=== PATIENT | male | born 1980 | race Two or more races ===

== ENCOUNTER 2016-09-15 06:57 | Day surgery (SDC) | payer MEDICARE, MEDICAID ==
[2016-09-14 12:03] LABS: Basophils # (auto) 0 uL; Basophils % (auto) 0.6 % (0.0-2.0); CONDITION Y; Eosinophils # (auto) 0.2 uL; Eosinophils % (auto) 2.9 % (0.0-7.0); Hematocrit 30.1 % (41.0-53.0); Hemoglobin 10.3 g/dL (13.5-17.5); Lymphocytes # (auto) 1.6 uL; Lymphocytes % (auto) 22.6 % (10.0-50.0); Mean Corpuscular Hemoglobin 32.7 pg (28.0-32.0); Mean Corpuscular Hgb Conc. 34.3 g/dL (32.0-36.0); Mean Corpuscular Volume 95.4 fL (80.0-100.0); Mean Platelet Volume 7.6 fL (7.4-10.4); Monocytes # (auto) 0.5 uL; Monocytes % (auto) 6.8 % (0.0-12.0); Neutrophils # (auto) 4.8 uL; Neutrophils % (auto) 67.1 % (37.0-80.0); Platelet Count (auto) 332 10^3/uL (140-450); White Blood Cell 7.1 10^3/uL (4.4-10.8)
[2016-09-14 12:18] LABS: INR 1.01 (0.9-1.15)
[2016-09-14 12:27] LABS: BUN/Creatinine Ratio 6.7; Calcium 7.4 mg/dL (8.5-10.1)
[2016-09-14 12:31] LABS: Potassium 5.6 mmol/L (3.5-5.1)
[~2016-09-15] VITALS: Ht 180.3 cm; Wt 95.7 kg
[~2016-09-15 06:57] MED LIST: ASPI-231 PO; CHOL400C7 PO; HYDROCODON-ACETAMINOPHN PO; INSUINJ37 SC; INSUINJ9 SC; LABE200T18 PO; LISIPOW PO; ONDA4TAB8 PO; SIMV-8 PO; SODB650T PO
[2016-09-15] MEDS ORDERED: IODIXANOL 320MG/ML 100ML BTL IV ONE (07:20)
[2016-09-15] MEDS ORDERED: LIDOCAINE 2%HCL (LOCAL ANESTH.) INJ 20ML MDV ONE (07:21)
[2016-09-15] MEDS ORDERED: MIDAZOLAM HCL 1MG/1ML-2 ML VIAL ONE (08:25)
[2016-09-15] MEDS ORDERED: SODIUM CHL 0.9% 0 ML ONE (08:26)
[2016-09-15] MEDS ORDERED: fentaNYL CITRATE 100 MCG/2 ML VL ONE (08:26)
[2016-09-15] MEDS ORDERED: VERAPAMIL 2.5MG/ML INJ 2ML VIAL IV ONE (08:26)
[2016-09-15] MEDS ORDERED: ANGIOMAX 250 MG VIAL IV ONE (08:26)
== END 2016-09-15 13:30 | disposition home or self-care (01) ==
LOC: CATH 06:57
PROVIDERS: ATTEND Internal Medicine
DX: I25.10 Atherosclerotic heart disease of native coronary artery without angina pectoris (principal); I20.0 Unstable angina; I50.9 Heart failure, unspecified; J40 Bronchitis, not specified as acute or chronic; F41.9 Anxiety disorder, unspecified; F32.9 Major depressive disorder, single episode, unspecified; B19.10 Unspecified viral hepatitis B without hepatic coma
CPT/HCPCS: 36415; 71010; 80048; 85025; 85610; 93005; 93458; J2250; Q9967

== ENCOUNTER 2016-09-21 14:01 | Inpatient (IN) | payer MEDICARE, MEDICAID ==
[~2016-09-21] VITALS: Ht 180.3 cm; Wt 102.8 kg
[2016-09-21 14:46] LABS: Basophils # (auto) 0 uL; Basophils % (auto) 0.6 % (0.0-2.0); CONDITION Y; Eosinophils # (auto) 0.2 uL; Hematocrit 35.3 % (41.0-53.0); Hemoglobin 12.7 g/dL (13.5-17.5); Lymphocytes # (auto) 1.8 uL; Lymphocytes % (auto) 30.3 % (10.0-50.0); Mean Corpuscular Hemoglobin 34.3 pg (28.0-32.0); Mean Corpuscular Hgb Conc. 35.8 g/dL (32.0-36.0); Mean Corpuscular Volume 95.7 fL (80.0-100.0); Mean Platelet Volume 7.4 fL (7.4-10.4); Monocytes # (auto) 0.6 uL; Monocytes % (auto) 9.3 % (0.0-12.0); Neutrophils # (auto) 3.4 uL; Neutrophils % (auto) 56.8 % (37.0-80.0); Platelet Count (auto) 379 10^3/uL (140-450); Red Cell Distribution Width 15.7 % (11.6-16.0); White Blood Cell 5.9 10^3/uL (4.4-10.8)
[2016-09-21 15:08] LABS: Albumin 3.3 g/dL (3.4-5.0); Calcium 8.5 mg/dL (8.5-10.1)
[2016-09-21 15:11] LABS: BUN/Creatinine Ratio 3.3
[2016-09-21 15:14] LABS: Bilirubin, Total 0.6 mg/dL (0.2-1.0); Total Protein 8.4 g/dL (6.4-8.2)
[2016-09-21 15:33] LABS: Magnesium 2.4 mg/dL (1.6-2.6); Potassium 3.9 mmol/L (3.5-5.1)
[2016-09-21] MEDS ORDERED: NITROGLYCERIN 0.4 MG SL TAB SL PRN (16:00)
[2016-09-21] MEDS ORDERED: MORPHINE SULF INJ 2 MG/ML SYRINGE 1ML IV PRN (16:00)
[2016-09-21] MEDS ORDERED: ONDANSETRON HCL 4 MG/2 ML VIAL IV PRN (16:00)
[2016-09-21] MEDS ORDERED: DEXTROSE (50%) 50ML SYRG IV PRN (16:00)
[2016-09-21] MEDS: ACCU-CHEK COMFORT CURVE STRIP VI SCH ×2 (16:19→21:57)
[2016-09-21] MEDS: HYDROcodone-ACET 5/325MG TAB PO PRN ×2 (16:19→22:15)
[2016-09-21] MEDS: InsuLIN REG 1unit/0.01ml Soln (100units/ml) SC SCH ×2 (16:24→21:58)
[2016-09-21] MEDS ORDERED: METOPROLOL SUCCINATE XL 50 MG TAB PO ONE (16:45)
[2016-09-21] MEDS: traZODone HCL 50 MG TAB PO SCH ×2 (18:11→23:29)
[2016-09-21] MEDS ORDERED: PANTOPRAZOLE 40 MG TAB PO ONE (18:15)
[2016-09-21] MEDS ORDERED: NIFEdipine ER 30 MG TAB PO ONE (18:15)
[2016-09-21 20:00] VITALS: BP 156/97
[2016-09-21] MEDS: GABAPENTIN 300 MG CAP PO SCH (21:49)
[2016-09-21] MEDS: ATORVASTATIN 20 MG TAB PO SCH (21:50)
[2016-09-21] MEDS: B-COMPLEX W/ C & FOLIC ACID(NEPHROVITE TAB) PO SCH (21:50)
[2016-09-21] MEDS: INSULIN DETEMIR(LEVEMIR) 1unit/0.01ml Soln (100units/ml) SC SCH (21:59)
[2016-09-21] MEDS ORDERED: GABAPENTIN 100 MG CAP PO SCH (22:00)
[2016-09-21] MEDS ORDERED: HYDROcodone-ACET 10/325MG TAB PO PRN (22:30)
[2016-09-21] MEDS ORDERED: HYDROcodone-ACET 5/325MG TAB PO ONE (23:15)
[2016-09-21] MEDS: LABETALOL HCL 5 MG/ML ML 20ML VIAL IV PRN (23:30)
[2016-09-22 06:00] VITALS: BP 167/97
[2016-09-22] MEDS: ACCU-CHEK COMFORT CURVE STRIP VI SCH ×4 (06:55→22:06)
[2016-09-22] MEDS: InsuLIN REG 1unit/0.01ml Soln (100units/ml) SC SCH ×4 (06:56→22:07)
[2016-09-22] MEDS: LABETALOL HCL 5 MG/ML ML 20ML VIAL IV PRN (06:59)
[2016-09-22 07:04] LABS: Basophils # (auto) 0 uL; Basophils % (auto) 0.8 % (0.0-2.0); CONDITION Y; Eosinophils # (auto) 0.3 uL; Hematocrit 32.1 % (41.0-53.0); Hemoglobin 10.9 g/dL (13.5-17.5); Lymphocytes % (auto) 35.5 % (10.0-50.0); Mean Corpuscular Hemoglobin 32.5 pg (28.0-32.0); Mean Corpuscular Volume 95.4 fL (80.0-100.0); Mean Platelet Volume 7.5 fL (7.4-10.4); Monocytes # (auto) 0.6 uL; Monocytes % (auto) 10.6 % (0.0-12.0); Neutrophils # (auto) 2.7 uL; Neutrophils % (auto) 48.1 % (37.0-80.0); Platelet Count (auto) 315 10^3/uL (140-450); Red Cell Distribution Width 16.3 % (11.6-16.0); White Blood Cell 5.7 10^3/uL (4.4-10.8)
[2016-09-22 07:48] LABS: BUN/Creatinine Ratio 4.2; Potassium 3.9 mmol/L (3.5-5.1)
[2016-09-22 08:30] VITALS: BP 162/97
[2016-09-22] MEDS: PANTOPRAZOLE 40 MG TAB PO SCH (10:08)
[2016-09-22] MEDS: B-COMPLEX W/ C & FOLIC ACID(NEPHROVITE TAB) PO SCH ×2 (10:08→22:08)
[2016-09-22] MEDS: GABAPENTIN 300 MG CAP PO SCH ×2 (10:08→22:06)
[2016-09-22] MEDS: NIFEdipine ER 30 MG TAB PO SCH (10:09)
[2016-09-22] MEDS: METOPROLOL SUCCINATE XL 50 MG TAB PO SCH (10:09)
[2016-09-22] MEDS: INSULIN DETEMIR(LEVEMIR) 1unit/0.01ml Soln (100units/ml) SC SCH ×2 (10:24→22:46)
[2016-09-22 12:30] VITALS: BP 169/94
[2016-09-22] MEDS ORDERED: CLINDAMYCIN 600 MG/4 ML VL IM SCH (14:00)
[2016-09-22] MEDS ORDERED: CLINDAMYCIN 600 MG/4 ML VL IV SCH (15:01)
[2016-09-22] MEDS: CLINDAMYCIN IV SCH ×2 (15:06→22:06)
[2016-09-22] MEDS: [UNRECOGNIZED DRUG - OTHER] IV SCH ×2 (15:06→22:06)
[2016-09-22] MEDS ORDERED: LORazepam 2MG/ML-1ML VIAL IV ONE (15:30)
[2016-09-22] MEDS: HYDROcodone-ACET 10/325MG TAB PO PRN (15:49)
[2016-09-22] MEDS ORDERED: SODIUM CHL 0.9% 1000 ML BAG XX ONE (16:30)
[2016-09-22 17:00] VITALS: BP 128/78
[2016-09-22 20:00] VITALS: BP 157/84
[2016-09-22] MEDS: MORPHINE SULF INJ 2 MG/ML SYRINGE 1ML IV PRN (20:29)
[2016-09-22 22:00] VITALS: BP 157/84
[2016-09-22] MEDS: traZODone HCL 50 MG TAB PO SCH (22:06)
[2016-09-22] MEDS: ATORVASTATIN 20 MG TAB PO SCH (22:06)
[2016-09-23] MEDS: LABETALOL HCL 5 MG/ML ML 20ML VIAL IV PRN ×2 (00:27→05:46)
[2016-09-23] MEDS: MORPHINE SULF INJ 2 MG/ML SYRINGE 1ML IV PRN ×5 (00:51→20:22)
[2016-09-23] MEDS: [UNRECOGNIZED DRUG - OTHER] IV SCH ×3 (05:45→21:52)
[2016-09-23] MEDS: CLINDAMYCIN IV SCH ×3 (05:45→21:52)
[2016-09-23 06:00] VITALS: BP 161/90
[2016-09-23 06:54] LABS: Basophils # (auto) 0 uL; Basophils % (auto) 0.6 % (0.0-2.0); CONDITION Y; Eosinophils # (auto) 0.4 uL; Eosinophils % (auto) 5.2 % (0.0-7.0); Hematocrit 32.1 % (41.0-53.0); Hemoglobin 11.1 g/dL (13.5-17.5); Lymphocytes # (auto) 2.1 uL; Lymphocytes % (auto) 30.1 % (10.0-50.0); Mean Corpuscular Hgb Conc. 34.4 g/dL (32.0-36.0); Mean Corpuscular Volume 95.8 fL (80.0-100.0); Mean Platelet Volume 7.8 fL (7.4-10.4); Monocytes # (auto) 0.6 uL; Monocytes % (auto) 8.4 % (0.0-12.0); Neutrophils # (auto) 3.9 uL; Neutrophils % (auto) 55.7 % (37.0-80.0); Platelet Count (auto) 317 10^3/uL (140-450); Red Cell Distribution Width 15.9 % (11.6-16.0); White Blood Cell 6.9 10^3/uL (4.4-10.8)
[2016-09-23] MEDS: ACCU-CHEK COMFORT CURVE STRIP VI SCH ×3 (07:00→21:53)
[2016-09-23] MEDS: InsuLIN REG 1unit/0.01ml Soln (100units/ml) SC SCH ×2 (07:40→17:37)
[2016-09-23 08:02] LABS: Potassium 4.8 mmol/L (3.5-5.1)
[2016-09-23 08:03] LABS: BUN/Creatinine Ratio 4.9; Calcium 7.6 mg/dL (8.5-10.1)
[2016-09-23 09:51] VITALS: BP 133/80
[2016-09-23] MEDS: NIFEdipine ER 30 MG TAB PO SCH (10:00)
[2016-09-23] MEDS: METOPROLOL SUCCINATE XL 50 MG TAB PO SCH (10:00)
[2016-09-23] MEDS: HYDROcodone-ACET 10/325MG TAB PO PRN ×3 (10:04→18:09)
[2016-09-23] MEDS: INSULIN DETEMIR(LEVEMIR) 1unit/0.01ml Soln (100units/ml) SC SCH (10:07)
[2016-09-23] MEDS ORDERED: DEXTROSE (50%) 50ML SYRG IV PRN (12:30)
[2016-09-23 12:36] VITALS: BP 98/62
[2016-09-23] MEDS: B-COMPLEX W/ C & FOLIC ACID(NEPHROVITE TAB) PO SCH ×2 (17:02→21:53)
[2016-09-23] MEDS: GABAPENTIN 300 MG CAP PO SCH ×2 (17:02→21:53)
[2016-09-23] MEDS: PANTOPRAZOLE 40 MG TAB PO SCH (17:02)
[2016-09-23 17:10] VITALS: BP 119/61
[2016-09-23 20:00] VITALS: BP 147/80
[2016-09-23] MEDS: ATORVASTATIN 20 MG TAB PO SCH (21:52)
[2016-09-23] MEDS: traZODone HCL 50 MG TAB PO SCH (21:52)
[2016-09-23 22:00] VITALS: BP 147/80
[2016-09-23] MEDS ORDERED: INSULIN DETEMIR(LEVEMIR) 1unit/0.01ml Soln (100units/ml) SC SCH (22:00)
[2016-09-23] MEDS ORDERED: InsuLIN REG 1unit/0.01ml Soln (100units/ml) SC SCH (22:00)
[2016-09-24] MEDS: MORPHINE SULF INJ 2 MG/ML SYRINGE 1ML IV PRN ×4 (00:45→15:10)
[2016-09-24] MEDS: InsuLIN REG 1unit/0.01ml Soln (100units/ml) SC SCH ×2 (05:41→11:15)
[2016-09-24] MEDS: ACCU-CHEK COMFORT CURVE STRIP VI SCH ×2 (05:41→11:14)
[2016-09-24] MEDS: [UNRECOGNIZED DRUG - OTHER] IV SCH ×2 (05:41→14:00)
[2016-09-24] MEDS: CLINDAMYCIN IV SCH ×2 (05:41→14:00)
[2016-09-24 06:00] VITALS: BP 135/80
[2016-09-24 08:49] VITALS: BP 135/92
[2016-09-24] MEDS ORDERED: DOCUSATE SOD 100 MG CAP PO ONE (09:15)
[2016-09-24] MEDS: PANTOPRAZOLE 40 MG TAB PO SCH (09:15)
[2016-09-24] MEDS: GABAPENTIN 300 MG CAP PO SCH (09:16)
[2016-09-24] MEDS: NIFEdipine ER 30 MG TAB PO SCH (09:16)
[2016-09-24] MEDS: METOPROLOL SUCCINATE XL 50 MG TAB PO SCH (09:16)
[2016-09-24] MEDS: B-COMPLEX W/ C & FOLIC ACID(NEPHROVITE TAB) PO SCH (09:17)
[2016-09-24 13:00] VITALS: BP 155/88
[2016-09-24 13:43] VITALS: BP 135/92
[2016-09-24] MEDS ORDERED: DOCUSATE SOD 100 MG CAP PO SCH (22:00)
== END 2016-09-24 15:45 | disposition home health service (06) | DRG 291 ==
LOC: EDBD 14:01 → ER 14:02 → TELE 14:03 → EDUNIT# 14:03 → TELE-E-ADS 17:20 → TELE-EAST 19:02
PROVIDERS: ADMIT Internal Medicine; ATTEND Internal Medicine Pulmonary Disease
PROC: 5A1D00Z (ICD-10-PCS; principal; 2016-09-23)
DX: I13.2 Hypertensive heart and chronic kidney disease with heart failure and with stage 5 chronic kidney disease, or end stage renal disease (principal); N18.6 End stage renal disease; N17.9 Acute kidney failure, unspecified; E44.0 Moderate protein-calorie malnutrition; I50.30 Unspecified diastolic (congestive) heart failure; E87.1 Hypo-osmolality and hyponatremia; M86.8X7 Other osteomyelitis, ankle and foot; I50.32 Chronic diastolic (congestive) heart failure; M48.54XA Collapsed vertebra, not elsewhere classified, thoracic region, initial encounter for fracture; E10.621 Type 1 diabetes mellitus with foot ulcer; L97.529 Non-pressure chronic ulcer of other part of left foot with unspecified severity; E10.21 Type 1 diabetes mellitus with diabetic nephropathy; E10.22 Type 1 diabetes mellitus with diabetic chronic kidney disease; E10.51 Type 1 diabetes mellitus with diabetic peripheral angiopathy without gangrene; E11.69 Type 2 diabetes mellitus with other specified complication; D63.8 Anemia in other chronic diseases classified elsewhere; E87.5 Hyperkalemia; I25.9 Chronic ischemic heart disease, unspecified; Z79.4 Long term (current) use of insulin; Z99.2 Dependence on renal dialysis; Z79.899 Other long term (current) drug therapy; Z80.1 Family history of malignant neoplasm of trachea, bronchus and lung; Z82.49 Family history of ischemic heart disease and other diseases of the circulatory system; Z83.3 Family history of diabetes mellitus; Z68.31 Body mass index [BMI] 31.0-31.9, adult; Z81.8 Family history of other mental and behavioral disorders; Z83.49 Family history of other endocrine, nutritional and metabolic diseases
CPT/HCPCS: 36415; 71010; 71020; 73630; 73718; 80048; 80053; 82962; 83036; 83735; 84484; 85025; 85379; 87077; 87186; 87205; 90935; 94761; 96374; J1815; J2405; J3490

== ENCOUNTER 2016-11-04 09:02 | Day surgery (SDC) | payer MEDICARE, MEDICAID ==
[2016-11-03 17:01] LABS: Urine Bilirubin Negative (Negative); Urine Blood TRACE /uL (Negative); Urine Color Yellow (Yellow); Urine Glucose 4+ mg/dL (Normal); Urine Ketone Negative (Negative); Urine Nitrite Negative (Negative); Urine RBC 2 /hpf (0 - 3); Urine Squamous Epithelial Cell FEW /hpf (<5); Urine Urobilinogen Normal (Negative); Urine pH 8.5 (5.0-8.0)
[2016-11-03 17:05] LABS: INR 0.99 (0.9-1.15); Prothrombin Time 10.8 sec (9.37-12.3)
[2016-11-03 17:08] LABS: Basophils # (auto) 0 uL; Basophils % (auto) 0.6 % (0.0-2.0); CONDITION Y; Eosinophils # (auto) 0.1 uL; Eosinophils % (auto) 1.1 % (0.0-7.0); Hemoglobin 9.4 g/dL (13.5-17.5); Lymphocytes # (auto) 1.1 uL; Lymphocytes % (auto) 18.6 % (10.0-50.0); Mean Corpuscular Hemoglobin 32.4 pg (28.0-32.0); Mean Corpuscular Hgb Conc. 33.7 g/dL (32.0-36.0); Mean Corpuscular Volume 96.1 fL (80.0-100.0); Mean Platelet Volume 8.3 fL (7.4-10.4); Monocytes # (auto) 0.5 uL; Monocytes % (auto) 8.9 % (0.0-12.0); Neutrophils % (auto) 70.8 % (37.0-80.0); Platelet Count (auto) 254 10^3/uL (140-450); Red Cell Distribution Width 14.5 % (11.6-16.0); White Blood Cell 5.7 10^3/uL (4.4-10.8)
[2016-11-03 17:21] LABS: Albumin 3.1 g/dL (3.4-5.0); BUN/Creatinine Ratio 5.1; Bilirubin, Total 0.5 mg/dL (0.2-1.0); Calcium 7.8 mg/dL (8.5-10.1); Potassium 5.1 mmol/L (3.5-5.1); Total Protein 7.4 g/dL (6.4-8.2)
[~2016-11-04] VITALS: Ht 180.3 cm; Wt 86.2 kg
[~2016-11-04 09:02] MED LIST changes: +AMLO5TAB2 PO; +B-COTAB10 OR; +GABA-497 PO; -HYDROCODON-ACETAMINOPHN PO; -LABE200T18 PO; -LISIPOW PO; +METO25TA5 PO; +SEVE800T8 PO
[2016-11-04] MEDS ORDERED: ceFAZolin 1GM/50ML D5W 50 ML IV ONE (10:25)
[2016-11-04] MEDS ORDERED: NEOMYCIN-BACITRACIN-POLYM 15GM TOP OINT TOP ONE (12:42)
[2016-11-04] MEDS ORDERED: BUPIVACAINE 0.75% INJ 10ML MPV SDV IJ ONE (12:42)
[2016-11-04] MEDS ORDERED: methylPREDNISolone ACETATE 80 MG/ML VL ONE (12:42)
[2016-11-04] MEDS ORDERED: PROPOFOL 10 MG/ML 20 ML IV ONE (13:21)
[2016-11-04] MEDS ORDERED: MIDAZOLAM HCL 1MG/1ML-2 ML VIAL ONE (13:23)
[2016-11-04] MEDS ORDERED: fentaNYL CITRATE 100 MCG/2 ML VL ONE (13:23)
[2016-11-04] MEDS ORDERED: HYDROmorphone HCL 2 MG/ML VL IV PRN (13:45)
[2016-11-04] MEDS ORDERED: fentaNYL CITRATE 100 MCG/2 ML VL IV PRN (13:45)
[2016-11-04] MEDS ORDERED: ONDANSETRON HCL 4 MG/2 ML VIAL IV ONE (13:45)
[2016-11-04] MEDS ORDERED: ACCU-CHEK COMFORT CURVE STRIP VI ONE (13:45)
[2016-11-04] MEDS: LABETALOL HCL 5 MG/ML 4ML SYRINGE IV PRN ×2 (15:03→16:20)
[2016-11-04] MEDS: hydrALAZINE HCL 20 MG/ML VL IV PRN ×4 (15:42→16:12)
[2016-11-04] MEDS ORDERED: HYDROmorphone HCL 2 MG/ML VL ONE (16:17)
[2016-11-04 17:05] VITALS: BP 164/99
== END 2016-11-04 17:05 | disposition home or self-care (01) ==
LOC: SUR 09:02
PROVIDERS: ATTEND Podiatrist Foot & Ankle Surgery
DX: M89.8X7 Other specified disorders of bone, ankle and foot (principal); L97.529 Non-pressure chronic ulcer of other part of left foot with unspecified severity; I50.9 Heart failure, unspecified; J40 Bronchitis, not specified as acute or chronic; E11.9 Type 2 diabetes mellitus without complications; F41.9 Anxiety disorder, unspecified; F32.9 Major depressive disorder, single episode, unspecified
CPT/HCPCS: 27687; 28230; 36415; 80053; 81001; 82962; 85025; 85610; 85730; J0360; J0690; J1040; J1170; J2250; J2704; J3010; J3490

== ENCOUNTER 2017-05-08 18:06 | Inpatient (IN) | payer MEDICAID, MEDICARE ==
[~2017-05-08] VITALS: Ht 180.3 cm; Wt 97.0 kg
[~2017-05-08 18:06] MED LIST changes: -GABA-497 PO; +GABA300C10 PO; +ONDA-101 PO; -ONDA4TAB8 PO
[2017-05-08] MEDS ORDERED: cloNIDine HCL 0.1 MG TAB PO ONE (19:45)
[2017-05-08 19:53] LABS: Basophils # (auto) 0 uL; Basophils % (auto) 0.5 % (0.0-2.0); Eosinophils # (auto) 0.1 uL; Eosinophils % (auto) 2.2 % (0.0-7.0); Hematocrit 33.3 % (41.0-53.0); Lymphocytes # (auto) 0.7 uL; Lymphocytes % (auto) 10.4 % (10.0-50.0); Mean Corpuscular Hemoglobin 31.4 pg (28.0-32.0); Mean Corpuscular Hgb Conc. 33.1 g/dL (32.0-36.0); Mean Corpuscular Volume 94.7 fL (80.0-100.0); Monocytes # (auto) 0.8 uL; Monocytes % (auto) 12.9 % (0.0-12.0); Neutrophils # (auto) 4.6 uL; Platelet Count (auto) 214 10^3/uL (140-450); Red Blood Cells 3.51 10^6/uL (4.5-5.90); Red Cell Distribution Width 16.3 % (11.8-14.3); White Blood Cell 6.3 10^3/uL (4.4-10.8)
[2017-05-08 20:21] LABS: Albumin 3.2 g/dL (3.4-5.0); BUN/Creatinine Ratio 6.6; Bilirubin, Total 1.1 mg/dL (0.2-1.0); Calcium 6.9 mg/dL (8.5-10.1); Magnesium 2.9 mg/dL (1.6-2.6); Potassium 4.6 mmol/L (3.5-5.1); Total Protein 8.1 g/dL (6.4-8.2)
[2017-05-08] MEDS ORDERED: HYDROcodone-ACET 10/325MG TAB PO ONE (22:45)
[2017-05-08] MEDS ORDERED: SODIUM CHLORIDE 0.9% 1,000 ML IV ONE (23:45)
[2017-05-09 00:05] LABS: INR 1.06 (0.9-1.15); Partial Thromboplastin Time 32.5 sec (22.64-33.71); Prothrombin Time 11.6 sec (9.37-12.3)
[2017-05-09] MEDS ORDERED: LACTULOSE 20Gm/30ML SOLN PO ONE (06:15)
[2017-05-09] MEDS ORDERED: ONDANSETRON HCL 4 MG/2 ML VIAL IV PRN (06:15)
[2017-05-09] MEDS ORDERED: NITROGLYCERIN 0.4 MG SL TAB SL PRN (06:15)
[2017-05-09] MEDS ORDERED: IBUPROFEN 600 MG TAB PO PRN (06:15)
[2017-05-09] MEDS ORDERED: MORPHINE SULFATE 4 MG/ML SYR/VIAL IV PRN (06:15)
[2017-05-09] MEDS ORDERED: DEXTROSE (50%) 50ML SYRG IV PRN (06:15)
[2017-05-09] MEDS: ACCU-CHEK COMFORT CURVE STRIP VI SCH ×4 (06:33→22:00)
[2017-05-09] MEDS: InsuLIN REG 1unit/0.01ml Soln (100units/ml) SC SCH ×4 (06:34→22:00)
[2017-05-09 07:17] LABS: Basophils # (auto) 0 uL; Basophils % (auto) 0.4 % (0.0-2.0); Eosinophils # (auto) 0.1 uL; Eosinophils % (auto) 1.2 % (0.0-7.0); Hematocrit 37.2 % (41.0-53.0); Hemoglobin 12.2 g/dL (13.5-17.5); Lymphocytes # (auto) 0.7 uL; Lymphocytes % (auto) 10.2 % (10.0-50.0); Mean Corpuscular Hemoglobin 31.3 pg (28.0-32.0); Mean Corpuscular Hgb Conc. 32.8 g/dL (32.0-36.0); Mean Corpuscular Volume 95.4 fL (80.0-100.0); Monocytes # (auto) 0.7 uL; Monocytes % (auto) 9.5 % (0.0-12.0); Neutrophils # (auto) 5.4 uL; Neutrophils % (auto) 78.7 % (37.0-80.0); Nucleated Red Blood Cells % 0.1 %; Platelet Count (auto) 218 10^3/uL (140-450); Red Cell Distribution Width 16.6 % (11.8-14.3); White Blood Cell 6.9 10^3/uL (4.4-10.8)
[2017-05-09 07:35] VITALS: BP 191/108
[2017-05-09 07:35] LABS: Albumin 3.3 g/dL (3.4-5.0); BUN/Creatinine Ratio 6.9; Calcium 7.3 mg/dL (8.5-10.1); Potassium 5.2 mmol/L (3.5-5.1)
[2017-05-09 07:36] LABS: Bilirubin, Total 1.2 mg/dL (0.2-1.0); Total Protein 8.3 g/dL (6.4-8.2)
[2017-05-09] MEDS: hydrALAZINE HCL 25 MG TAB PO SCH ×2 (08:48→22:26)
[2017-05-09] MEDS: SEVELAMER 800 MG TAB PO SCH ×3 (08:52→17:38)
[2017-05-09] MEDS: ISOSORBIDE DINITRATE 10 MG TAB PO SCH ×2 (08:53→22:25)
[2017-05-09] MEDS: METOPROLOL TARTRATE 50 MG TAB PO SCH ×2 (08:53→22:27)
[2017-05-09 09:12] VITALS: BP 186/105
[2017-05-09] MEDS: amLODIPine BESYLATE 5 MG TAB PO SCH (09:59)
[2017-05-09] MEDS ORDERED: amLODIPine BESYLATE 5 MG TAB PO SCH (10:00)
[2017-05-09] MEDS ORDERED: PNEUMOCOCCAL VACC POLYS 25 MCG/0.5 ML VIAL IM ONE (10:00)
[2017-05-09] MEDS ORDERED: INFLUENZA QUAD 2017-2018 0.5 ML SYRG IM ONE (10:00)
[2017-05-09] MEDS: cloNIDine HCL 0.1 MG TAB PO PRN (10:25)
[2017-05-09 11:44] VITALS: BP 194/99
[2017-05-09 12:43] VITALS: BP 159/85
[2017-05-09] MEDS: GABAPENTIN 300 MG CAP PO SCH ×2 (13:41→22:26)
[2017-05-09 17:45] VITALS: BP 143/91
[2017-05-09 22:20] VITALS: BP 139/74
[2017-05-10] VITALS (8 sets, daily range): BP systolic 125–190; BP diastolic 68–103
[2017-05-10] MEDS: GABAPENTIN 300 MG CAP PO SCH ×3 (06:32→22:25)
[2017-05-10 06:44] LABS: Basophils # (auto) 0 uL; Basophils % (auto) 0.5 % (0.0-2.0); Eosinophils # (auto) 0.3 uL; Hematocrit 33.6 % (41.0-53.0); Hemoglobin 11.1 g/dL (13.5-17.5); Lymphocytes # (auto) 1.3 uL; Lymphocytes % (auto) 14.8 % (10.0-50.0); Mean Corpuscular Hemoglobin 31.3 pg (28.0-32.0); Mean Corpuscular Volume 94.8 fL (80.0-100.0); Monocytes # (auto) 0.8 uL; Monocytes % (auto) 9.7 % (0.0-12.0); Neutrophils # (auto) 6.2 uL; Nucleated Red Blood Cells % 0.1 %; Platelet Count (auto) 248 10^3/uL (140-450); Red Blood Cells 3.55 10^6/uL (4.5-5.90); Red Cell Distribution Width 16.6 % (11.8-14.3); White Blood Cell 8.7 10^3/uL (4.4-10.8)
[2017-05-10 06:57] LABS: BUN/Creatinine Ratio 6.9
[2017-05-10] MEDS: InsuLIN REG 1unit/0.01ml Soln (100units/ml) SC SCH ×4 (07:00→22:00)
[2017-05-10] MEDS: ACCU-CHEK COMFORT CURVE STRIP VI SCH ×4 (07:13→23:03)
[2017-05-10] MEDS: SEVELAMER 800 MG TAB PO SCH ×3 (08:13→17:19)
[2017-05-10] MEDS: ISOSORBIDE DINITRATE 10 MG TAB PO SCH ×2 (08:58→22:25)
[2017-05-10] MEDS: hydrALAZINE HCL 25 MG TAB PO SCH ×3 (08:58→22:26)
[2017-05-10] MEDS: METOPROLOL TARTRATE 50 MG TAB PO SCH ×2 (08:59→22:26)
[2017-05-10] MEDS: amLODIPine BESYLATE 5 MG TAB PO SCH (08:59)
[2017-05-10] MEDS ORDERED: SODIUM CHL 0.9% 1000 ML BAG XX ONE (09:15)
[2017-05-10] MEDS ORDERED: HYDROcodone-ACET 10/325MG TAB PO PRN (10:30)
[2017-05-10] MEDS: cloNIDine HCL 0.1 MG TAB PO PRN (13:15)
[2017-05-10] MEDS: NIFEdipine ER 30 MG TAB PO SCH (13:15)
[2017-05-10] MEDS ORDERED: AZITHROMYCIN 250 MG TAB PO ONE (15:00)
[2017-05-11 05:00] VITALS: BP 107/72
[2017-05-11] MEDS: GABAPENTIN 300 MG CAP PO SCH (06:21)
[2017-05-11] MEDS: hydrALAZINE HCL 25 MG TAB PO SCH (06:22)
[2017-05-11] MEDS: InsuLIN REG 1unit/0.01ml Soln (100units/ml) SC SCH ×2 (06:40→11:58)
[2017-05-11] MEDS: ACCU-CHEK COMFORT CURVE STRIP VI SCH ×2 (06:41→11:58)
[2017-05-11] MEDS: SEVELAMER 800 MG TAB PO SCH ×2 (08:49→11:58)
[2017-05-11] MEDS: NIFEdipine ER 30 MG TAB PO SCH (08:50)
[2017-05-11] MEDS: METOPROLOL TARTRATE 50 MG TAB PO SCH (08:50)
[2017-05-11] MEDS: ISOSORBIDE DINITRATE 10 MG TAB PO SCH (08:50)
[2017-05-11 09:00] VITALS: BP 127/79
[2017-05-11] MEDS ORDERED: AZITHROMYCIN 250 MG TAB PO SCH (10:00)
[2017-05-11 13:00] VITALS: BP 122/77
== END 2017-05-11 15:00 | disposition home or self-care (01) | DRG 441 ==
LOC: ER 18:06 → TELE 18:07 → TELE-EAST 05-09 07:24
PROVIDERS: ADMIT Nurse Practitioner Family; ATTEND Internal Medicine
PROC: 5A1D70Z Performance of Urinary Filtration, Intermittent, Less than 6 Hours Per Day (ICD-10-PCS; principal; 2017-05-10)
DX: K72.90 Hepatic failure, unspecified without coma (principal); N18.6 End stage renal disease; I13.2 Hypertensive heart and chronic kidney disease with heart failure and with stage 5 chronic kidney disease, or end stage renal disease; E11.22 Type 2 diabetes mellitus with diabetic chronic kidney disease; E87.1 Hypo-osmolality and hyponatremia; D64.9 Anemia, unspecified; E66.9 Obesity, unspecified; E78.5 Hyperlipidemia, unspecified; G89.29 Other chronic pain; E87.5 Hyperkalemia; I16.0 Hypertensive urgency; I25.10 Atherosclerotic heart disease of native coronary artery without angina pectoris; I50.9 Heart failure, unspecified; J20.9 Acute bronchitis, unspecified; R04.0 Epistaxis; Z79.4 Long term (current) use of insulin; Z79.82 Long term (current) use of aspirin; Z82.3 Family history of stroke; Z82.49 Family history of ischemic heart disease and other diseases of the circulatory system; Z83.3 Family history of diabetes mellitus; Z91.11 Patient's noncompliance with dietary regimen; Z91.15 Patient's noncompliance with renal dialysis; Z99.2 Dependence on renal dialysis; Z79.899 Other long term (current) drug therapy; Z23 Encounter for immunization
CPT/HCPCS: 36415; 70450; 71045; 73030; 74176; 80048; 80053; 82140; 82962; 83735; 83880; 84484; 85025; 85610; 85730; 90935; 93005; J1815

== ENCOUNTER 2017-10-04 05:57 | Inpatient (IN) | payer MEDICARE ==
[~2017-10-04] VITALS: Ht 182.9 cm; Wt 106.1 kg
[~2017-10-04 05:57] MED LIST changes: -AMLO5TAB2 PO; -CHOL400C7 PO
[2017-10-04 07:20] LABS: Basophils # (auto) 0.1 uL; Basophils % (auto) 0.8 % (0.0-2.0); Eosinophils # (auto) 0.3 uL; Eosinophils % (auto) 2.7 % (0.0-7.0); Hemoglobin 11.9 g/dL (13.5-17.5); Lymphocytes # (auto) 0.8 uL; Lymphocytes % (auto) 6.5 % (10.0-50.0); Mean Corpuscular Hemoglobin 31.5 pg (28.0-32.0); Mean Corpuscular Hgb Conc. 33.2 g/dL (32.0-36.0); Monocytes # (auto) 0.9 uL; Monocytes % (auto) 7.6 % (0.0-12.0); Neutrophils # (auto) 9.6 uL; Neutrophils % (auto) 82.4 % (37.0-80.0); Platelet Count (auto) 293 10^3/uL (140-450); Red Blood Cells 3.79 10^6/uL (4.5-5.90); Red Cell Distribution Width 16.3 % (11.8-14.3); White Blood Cell 11.7 10^3/uL (4.4-10.8)
[2017-10-04 08:00] LABS: Alanine Aminotransferase 24 U/L (16-61); Albumin 3.1 g/dL (3.4-5.0); Alkaline Phosphatase 132 U/L (45-117); Anion Gap 14 (5-15); Aspartate Aminotransferase 24 U/L (15-37); BUN/Creatinine Ratio 7.9; Bilirubin, Total 0.9 mg/dL (0.2-1.0); Calcium 7.4 mg/dL (8.5-10.1); Carbon Dioxide 25 mmol/L (21-32); Chloride 90 mmol/L (98-107); GFR African American 7 mL/min; GFR Non-African American 6 mL/min; Glucose 153 mg/dL (74-106); Magnesium 3.4 mg/dL (1.6-2.6); Sodium 129 mmol/L (136-145); Total Protein 8.8 g/dL (6.4-8.2)
[2017-10-04 08:06] LABS: Blood Urea Nitrogen 89 mg/dL (7-18); Potassium 6.3 mmol/L (3.5-5.1)
[2017-10-04] MEDS ORDERED: InsuLIN REG 1unit/0.01ml Soln (100units/ml) IV ONE (08:30)
[2017-10-04] MEDS ORDERED: SODIUM BICARBONATE 8.4% INJ 50ML SYRINGE IV ONE (08:30)
[2017-10-04] MEDS ORDERED: DEXTROSE (50%) 50ML SYRG IV ONE (08:30)
[2017-10-04] MEDS ORDERED: SODIUM POLYSTYRENE SULF 15GM/60ML SUSP PO ONE (08:30)
[2017-10-04] MEDS ORDERED: CALCIUM GLUC 4.65meq/50ml D5AE 50 ML IV ONE (08:30)
[2017-10-04] MEDS ORDERED: PIPERACILLIN-TAZOB 3.375GM 100 ML IV ONE (08:30)
[2017-10-04] MEDS ORDERED: HYDROcodone-ACET 10/325MG TAB PO PRN (09:30)
[2017-10-04] MEDS ORDERED: LACTULOSE 20Gm/30ML SOLN PO PRN (09:30)
[2017-10-04] MEDS ORDERED: VANCOMYCIN PER PHARMACY 0 MG IV SCH (09:30)
[2017-10-04] MEDS ORDERED: DEXTROSE (50%) 50ML SYRG IV PRN (09:30)
[2017-10-04] MEDS ORDERED: cefTRIAXone 1GM/10ml IVPUSH 10 ML IV ONE (09:30)
[2017-10-04] MEDS ORDERED: IBUPROFEN 600 MG TAB PO PRN (09:30)
[2017-10-04] MEDS ORDERED: ONDANSETRON HCL 4 MG/2 ML VIAL IV PRN (09:45)
[2017-10-04] MEDS ORDERED: ACETAMINOPHEN 325 MG TAB PO PRN (09:45)
[2017-10-04] MEDS ORDERED: TEMAZEPAM 15 MG CAP PO PRN (09:45)
[2017-10-04] MEDS ORDERED: FAMOTIDINE 20 MG TAB PO SCH (10:00)
[2017-10-04] MEDS ORDERED: PATIENTS OWN MEDICATION PO SCH (10:00)
[2017-10-04] MEDS: B-COMPLEX W/ C & FOLIC ACID(NEPHROVITE TAB) PO SCH (10:20)
[2017-10-04] MEDS: ASPirin-EC 81 mg tab PO SCH (10:20)
[2017-10-04] MEDS: hydrALAZINE HCL 25 MG TAB PO SCH ×2 (10:21→22:31)
[2017-10-04] MEDS: METOPROLOL TARTRATE 50 MG TAB PO SCH ×2 (10:21→22:32)
[2017-10-04] MEDS: PROMETHAZINE HCL 25 MG/ML 1ML IV PRN (10:21)
[2017-10-04] MEDS: FAMOTIDINE 20 MG TAB PO SCH (10:22)
[2017-10-04] MEDS: MORPHINE SULF INJ 2 MG/ML SYRINGE 1ML IV PRN (10:22)
[2017-10-04] MEDS: NIFEdipine ER 30 MG TAB PO SCH (10:23)
[2017-10-04] MEDS: MULTIPLE VITAMIN TAB PO SCH (10:23)
[2017-10-04] MEDS ORDERED: VANCOMYCIN 1GM/250ML 250 ML IV ONE (10:30)
[2017-10-04] MEDS: GABAPENTIN 300 MG CAP PO SCH (10:35)
[2017-10-04] MEDS: FUROSEMIDE 40 MG TAB PO SCH ×2 (10:36→17:50)
[2017-10-04 11:22] LABS: INR 0.96 (0.9-1.15); Prothrombin Time 10.3 sec (9.27-12.13)
[2017-10-04] MEDS: ACCU-CHEK COMFORT CURVE STRIP VI SCH ×3 (11:40→22:00)
[2017-10-04] MEDS: InsuLIN REG 1unit/0.01ml Soln (100units/ml) SC SCH ×3 (11:52→22:00)
[2017-10-04 13:02] LABS: Hepatitis A Ab IgM Negative; Hepatitis B Core IgM Negative; Hepatitis B Surface Antigen Negative (Negative); Hepatitis C Antibody Negative (Negative)
[2017-10-04] MEDS: SEVELAMER 800 MG TAB PO SCH ×2 (13:40→18:00)
[2017-10-04] MEDS ORDERED: GABAPENTIN 300 MG CAP PO SCH (14:00)
[2017-10-04] MEDS: SODIUM CHLOR 0.9% PF (SALINE LOCK) 10ML VIAL/SYR IV SCH ×2 (14:01→22:00)
[2017-10-04 22:00] VITALS: BP 153/80
[2017-10-04] MEDS ORDERED: INSULIN LANTUS (GLARGINE) 1 /0.01ml (100units/ml) SC SCH (22:00)
[2017-10-04] MEDS: CINACALCET HYDROCHLORIDE 30 MG TAB PO SCH (22:00)
[2017-10-04] MEDS: traZODone HCL 50 MG TAB PO SCH (22:32)
[2017-10-04] MEDS: ATORVASTATIN 20 MG TAB PO SCH (22:38)
[2017-10-05] MEDS: MORPHINE SULF INJ 2 MG/ML SYRINGE 1ML IV PRN ×8 (00:36→21:55)
[2017-10-05 05:15] VITALS: BP 126/69
[2017-10-05 05:42] LABS: Basophils # (auto) 0.2 uL; Basophils % (auto) 2.8 % (0.0-2.0); Eosinophils # (auto) 0.4 uL; Eosinophils % (auto) 5.2 % (0.0-7.0); Hematocrit 31.8 % (41.0-53.0); Hemoglobin 10.8 g/dL (13.5-17.5); Lymphocytes # (auto) 0.9 uL; Lymphocytes % (auto) 12.8 % (10.0-50.0); Mean Corpuscular Hemoglobin 32.4 pg (28.0-32.0); Mean Corpuscular Volume 95.3 fL (80.0-100.0); Monocytes # (auto) 0.7 uL; Monocytes % (auto) 10.1 % (0.0-12.0); Neutrophils # (auto) 4.8 uL; Neutrophils % (auto) 69.1 % (37.0-80.0); Nucleated Red Blood Cells % 0.1 %; Platelet Count (auto) 265 10^3/uL (140-450); Red Blood Cells 3.34 10^6/uL (4.5-5.90); Red Cell Distribution Width 16.4 % (11.8-14.3)
[2017-10-05] MEDS: InsuLIN REG 1unit/0.01ml Soln (100units/ml) SC SCH ×4 (05:48→22:02)
[2017-10-05] MEDS: SODIUM CHLOR 0.9% PF (SALINE LOCK) 10ML VIAL/SYR IV SCH ×3 (05:48→22:02)
[2017-10-05] MEDS: ACCU-CHEK COMFORT CURVE STRIP VI SCH ×4 (05:49→22:03)
[2017-10-05 06:05] LABS: Albumin 2.5 g/dL (3.4-5.0); BUN/Creatinine Ratio 7.6; Calcium 7.8 mg/dL (8.5-10.1); Potassium 5.1 mmol/L (3.5-5.1)
[2017-10-05 06:08] LABS: Bilirubin, Total 0.7 mg/dL (0.2-1.0); Total Protein 7.8 g/dL (6.4-8.2)
[2017-10-05] MEDS: FUROSEMIDE 40 MG TAB PO SCH ×2 (06:12→18:35)
[2017-10-05] MEDS ORDERED: INSULIN LANTUS (GLARGINE) 1 /0.01ml (100units/ml) SC SCH (07:00)
[2017-10-05 09:00] VITALS: BP 134/71
[2017-10-05] MEDS ORDERED: cefTRIAXone 1GM/10ml IVPUSH 10 ML IV SCH (09:00)
[2017-10-05] MEDS: B-COMPLEX W/ C & FOLIC ACID(NEPHROVITE TAB) PO SCH (10:35)
[2017-10-05] MEDS: MULTIPLE VITAMIN TAB PO SCH (10:36)
[2017-10-05] MEDS: SEVELAMER 800 MG TAB PO SCH ×3 (10:36→18:36)
[2017-10-05] MEDS: GABAPENTIN 300 MG CAP PO SCH (10:36)
[2017-10-05] MEDS: NIFEdipine ER 30 MG TAB PO SCH (10:38)
[2017-10-05] MEDS: hydrALAZINE HCL 25 MG TAB PO SCH ×2 (10:38→21:56)
[2017-10-05] MEDS: FAMOTIDINE 20 MG TAB PO SCH (10:39)
[2017-10-05] MEDS: ASPirin-EC 81 mg tab PO SCH (10:39)
[2017-10-05] MEDS: METOPROLOL TARTRATE 50 MG TAB PO SCH ×2 (10:39→21:57)
[2017-10-05 11:58] VITALS: BP 148/81
[2017-10-05 17:44] VITALS: BP 126/65
[2017-10-05] MEDS: ATORVASTATIN 20 MG TAB PO SCH (21:56)
[2017-10-05] MEDS: traZODone HCL 50 MG TAB PO SCH (21:57)
[2017-10-05 22:00] VITALS: BP 140/83
[2017-10-05] MEDS: CINACALCET HYDROCHLORIDE 30 MG TAB PO SCH (22:00)
[2017-10-05] MEDS: INSULIN LANTUS (GLARGINE) 1 /0.01ml (100units/ml) SC SCH (22:03)
[2017-10-05] MEDS: NITROGLYCERIN 0.4 MG SL TAB SL PRN ×3 (23:06→23:43)
[2017-10-06] MEDS: MORPHINE SULF INJ 2 MG/ML SYRINGE 1ML IV PRN ×6 (04:46→23:28)
[2017-10-06 05:13] VITALS: BP 129/76
[2017-10-06] MEDS: SODIUM CHLOR 0.9% PF (SALINE LOCK) 10ML VIAL/SYR IV SCH ×3 (05:59→22:06)
[2017-10-06] MEDS: FUROSEMIDE 40 MG TAB PO SCH ×2 (06:00→18:23)
[2017-10-06] MEDS: InsuLIN REG 1unit/0.01ml Soln (100units/ml) SC SCH ×4 (06:01→22:00)
[2017-10-06] MEDS: INSULIN LANTUS (GLARGINE) 1 /0.01ml (100units/ml) SC SCH ×2 (06:02→22:06)
[2017-10-06] MEDS: ACCU-CHEK COMFORT CURVE STRIP VI SCH ×4 (06:04→22:06)
[2017-10-06 08:53] VITALS: BP 145/68
[2017-10-06] MEDS: B-COMPLEX W/ C & FOLIC ACID(NEPHROVITE TAB) PO SCH (09:08)
[2017-10-06] MEDS: SEVELAMER 800 MG TAB PO SCH ×3 (09:08→18:23)
[2017-10-06] MEDS: ASPirin-EC 81 mg tab PO SCH (09:08)
[2017-10-06] MEDS: FAMOTIDINE 20 MG TAB PO SCH (09:08)
[2017-10-06] MEDS: MULTIPLE VITAMIN TAB PO SCH (09:08)
[2017-10-06] MEDS: GABAPENTIN 300 MG CAP PO SCH (09:08)
[2017-10-06] MEDS: METOPROLOL TARTRATE 50 MG TAB PO SCH ×2 (12:21→22:03)
[2017-10-06] MEDS: hydrALAZINE HCL 25 MG TAB PO SCH ×2 (12:21→22:02)
[2017-10-06] MEDS: NIFEdipine ER 30 MG TAB PO SCH (12:22)
[2017-10-06 12:40] VITALS: BP 149/84
[2017-10-06 17:16] VITALS: BP 150/95
[2017-10-06 22:00] VITALS: BP 148/85
[2017-10-06] MEDS: CINACALCET HYDROCHLORIDE 30 MG TAB PO SCH (22:00)
[2017-10-06] MEDS: ATORVASTATIN 20 MG TAB PO SCH (22:02)
[2017-10-06] MEDS: traZODone HCL 50 MG TAB PO SCH (22:03)
[2017-10-07] MEDS: MORPHINE SULF INJ 2 MG/ML SYRINGE 1ML IV PRN ×5 (03:41→20:39)
[2017-10-07 05:30] VITALS: BP 155/80
[2017-10-07] MEDS: SODIUM CHLOR 0.9% PF (SALINE LOCK) 10ML VIAL/SYR IV SCH ×3 (06:00→22:00)
[2017-10-07] MEDS: INSULIN LANTUS (GLARGINE) 1 /0.01ml (100units/ml) SC SCH ×2 (06:40→22:00)
[2017-10-07] MEDS: InsuLIN REG 1unit/0.01ml Soln (100units/ml) SC SCH ×4 (06:40→22:00)
[2017-10-07] MEDS: ACCU-CHEK COMFORT CURVE STRIP VI SCH ×4 (06:41→22:00)
[2017-10-07] MEDS: FUROSEMIDE 40 MG TAB PO SCH ×2 (06:42→17:44)
[2017-10-07 09:00] VITALS: BP 128/68
[2017-10-07] MEDS: GABAPENTIN 300 MG CAP PO SCH (09:09)
[2017-10-07] MEDS: SEVELAMER 800 MG TAB PO SCH ×3 (09:09→17:42)
[2017-10-07] MEDS: B-COMPLEX W/ C & FOLIC ACID(NEPHROVITE TAB) PO SCH (09:09)
[2017-10-07] MEDS: MULTIPLE VITAMIN TAB PO SCH (09:11)
[2017-10-07] MEDS: FAMOTIDINE 20 MG TAB PO SCH (09:12)
[2017-10-07] MEDS: NIFEdipine ER 30 MG TAB PO SCH (09:12)
[2017-10-07] MEDS: ASPirin-EC 81 mg tab PO SCH (09:12)
[2017-10-07] MEDS: hydrALAZINE HCL 25 MG TAB PO SCH ×2 (09:13→23:07)
[2017-10-07] MEDS: METOPROLOL TARTRATE 50 MG TAB PO SCH ×2 (09:13→23:08)
[2017-10-07 13:00] VITALS: BP 156/79
[2017-10-07 17:00] VITALS: BP 149/85
[2017-10-07 22:00] VITALS: BP 149/85
[2017-10-07] MEDS: CINACALCET HYDROCHLORIDE 30 MG TAB PO SCH (22:00)
[2017-10-07] MEDS: ATORVASTATIN 20 MG TAB PO SCH (23:06)
[2017-10-07] MEDS: traZODone HCL 50 MG TAB PO SCH (23:06)
[2017-10-08 05:00] VITALS: BP 129/73
[2017-10-08] MEDS: MORPHINE SULF INJ 2 MG/ML SYRINGE 1ML IV PRN ×4 (05:15→21:17)
[2017-10-08] MEDS: SODIUM CHLOR 0.9% PF (SALINE LOCK) 10ML VIAL/SYR IV SCH ×3 (06:19→22:00)
[2017-10-08] MEDS: InsuLIN REG 1unit/0.01ml Soln (100units/ml) SC SCH ×4 (06:20→22:00)
[2017-10-08] MEDS: FUROSEMIDE 40 MG TAB PO SCH ×2 (06:20→17:58)
[2017-10-08] MEDS: INSULIN LANTUS (GLARGINE) 1 /0.01ml (100units/ml) SC SCH ×2 (06:21→22:00)
[2017-10-08] MEDS: ACCU-CHEK COMFORT CURVE STRIP VI SCH ×4 (06:21→22:00)
[2017-10-08 08:00] VITALS: BP 131/87
[2017-10-08] MEDS: SEVELAMER 800 MG TAB PO SCH ×3 (08:21→17:58)
[2017-10-08 08:45] VITALS: BP 131/87
[2017-10-08] MEDS: FAMOTIDINE 20 MG TAB PO SCH (10:00)
[2017-10-08] MEDS: B-COMPLEX W/ C & FOLIC ACID(NEPHROVITE TAB) PO SCH (10:03)
[2017-10-08] MEDS: MULTIPLE VITAMIN TAB PO SCH (10:03)
[2017-10-08] MEDS: NIFEdipine ER 30 MG TAB PO SCH (10:04)
[2017-10-08] MEDS: ASPirin-EC 81 mg tab PO SCH (10:04)
[2017-10-08] MEDS: GABAPENTIN 300 MG CAP PO SCH (10:04)
[2017-10-08] MEDS: METOPROLOL TARTRATE 50 MG TAB PO SCH ×2 (10:05→22:57)
[2017-10-08] MEDS: hydrALAZINE HCL 25 MG TAB PO SCH ×2 (10:05→22:56)
[2017-10-08 13:00] VITALS: BP 149/79
[2017-10-08] MEDS: PROMETHAZINE HCL 25 MG/ML 1ML IV PRN (14:03)
[2017-10-08 17:00] VITALS: BP 145/64
[2017-10-08 22:00] VITALS: BP 122/73
[2017-10-08] MEDS: ATORVASTATIN 20 MG TAB PO SCH (22:00)
[2017-10-08] MEDS: CINACALCET HYDROCHLORIDE 30 MG TAB PO SCH (22:00)
[2017-10-08] MEDS: traZODone HCL 50 MG TAB PO SCH (22:56)
[2017-10-09] MEDS: MORPHINE SULF INJ 2 MG/ML SYRINGE 1ML IV PRN ×2 (02:57→09:00)
[2017-10-09 05:00] VITALS: BP 139/71
[2017-10-09] MEDS: FUROSEMIDE 40 MG TAB PO SCH (05:57)
[2017-10-09] MEDS: SODIUM CHLOR 0.9% PF (SALINE LOCK) 10ML VIAL/SYR IV SCH (05:58)
[2017-10-09] MEDS: INSULIN LANTUS (GLARGINE) 1 /0.01ml (100units/ml) SC SCH (05:59)
[2017-10-09] MEDS: ACCU-CHEK COMFORT CURVE STRIP VI SCH ×2 (05:59→11:30)
[2017-10-09] MEDS: InsuLIN REG 1unit/0.01ml Soln (100units/ml) SC SCH ×2 (05:59→11:30)
[2017-10-09] MEDS: SEVELAMER 800 MG TAB PO SCH ×2 (08:28→12:00)
[2017-10-09 08:30] VITALS: BP 148/89
[2017-10-09] MEDS: MULTIPLE VITAMIN TAB PO SCH (09:49)
[2017-10-09] MEDS: GABAPENTIN 300 MG CAP PO SCH (09:49)
[2017-10-09] MEDS: METOPROLOL TARTRATE 50 MG TAB PO SCH (09:49)
[2017-10-09] MEDS: hydrALAZINE HCL 25 MG TAB PO SCH (09:49)
[2017-10-09] MEDS: B-COMPLEX W/ C & FOLIC ACID(NEPHROVITE TAB) PO SCH (09:49)
[2017-10-09] MEDS: FAMOTIDINE 20 MG TAB PO SCH (09:50)
[2017-10-09] MEDS: NIFEdipine ER 30 MG TAB PO SCH (09:50)
[2017-10-09] MEDS: ASPirin-EC 81 mg tab PO SCH (09:50)
[2017-10-09 10:22] VITALS: BP 148/89
== END 2017-10-09 12:19 | disposition home health service (06) | DRG 871 ==
LOC: EDBD 05:57 → EDUNIT# 05:57 → EDBD 06:07 → ER 06:07 → TELE 06:08 → TELE-CENTR 18:26
PROVIDERS: ADMIT Internal Medicine; ATTEND Internal Medicine Pulmonary Disease
PROC: 5A1D70Z Performance of Urinary Filtration, Intermittent, Less than 6 Hours Per Day (ICD-10-PCS; principal; 2017-10-04)
PROC: 5A1D70Z Performance of Urinary Filtration, Intermittent, Less than 6 Hours Per Day (ICD-10-PCS; 2017-10-06)
PROC: 0W9G3ZZ Drainage of Peritoneal Cavity, Percutaneous Approach (ICD-10-PCS; 2017-10-06)
PROC: 5A1D70Z Performance of Urinary Filtration, Intermittent, Less than 6 Hours Per Day (ICD-10-PCS; 2017-10-08)
DX: A41.9 Sepsis, unspecified organism (principal); N18.6 End stage renal disease; E44.0 Moderate protein-calorie malnutrition; N17.9 Acute kidney failure, unspecified; E87.1 Hypo-osmolality and hyponatremia; R18.8 Other ascites; I13.2 Hypertensive heart and chronic kidney disease with heart failure and with stage 5 chronic kidney disease, or end stage renal disease; I50.32 Chronic diastolic (congestive) heart failure; J98.11 Atelectasis; E87.5 Hyperkalemia; E83.41 Hypermagnesemia; E83.51 Hypocalcemia; L97.509 Non-pressure chronic ulcer of other part of unspecified foot with unspecified severity; E10.21 Type 1 diabetes mellitus with diabetic nephropathy; D63.8 Anemia in other chronic diseases classified elsewhere; E10.22 Type 1 diabetes mellitus with diabetic chronic kidney disease; E10.621 Type 1 diabetes mellitus with foot ulcer; I25.10 Atherosclerotic heart disease of native coronary artery without angina pectoris; Z79.4 Long term (current) use of insulin; Z82.3 Family history of stroke; Z82.49 Family history of ischemic heart disease and other diseases of the circulatory system; Z68.31 Body mass index [BMI] 31.0-31.9, adult; Z83.3 Family history of diabetes mellitus; Z99.2 Dependence on renal dialysis; Z89.429 Acquired absence of other toe(s), unspecified side
CPT/HCPCS: 10022; 36415; 49083; 71045; 74176; 76705; 76942; 80053; 80074; 80202; 82140; 82962; 83036; 83605; 83735; 83880; 84443; 84484; 85025; 85610; 87040; 87081; 90935; 93005; 93306; 96374; 96375; 97116; 97163; 97530; J0610; J0696; J1815; J2405

== ENCOUNTER → 2018-03-23 | Day surgery (SDC) | payer MEDICARE ==
[2018-03-18 14:59] LABS: Basophils # (auto) 0.1 uL; Basophils % (auto) 1.3 % (0.0-2.0); Eosinophils # (auto) 0.2 uL; Eosinophils % (auto) 4.7 % (0.0-7.0); Hematocrit 38.8 % (41.0-53.0); Lymphocytes # (auto) 0.8 uL; Lymphocytes % (auto) 18.3 % (10.0-50.0); Mean Corpuscular Hemoglobin 33.5 pg (28.0-32.0); Mean Corpuscular Hgb Conc. 33.6 g/dL (32.0-36.0); Mean Corpuscular Volume 99.8 fL (80.0-100.0); Monocytes # (auto) 0.6 uL; Monocytes % (auto) 12.8 % (0.0-12.0); Neutrophils # (auto) 2.9 uL; Neutrophils % (auto) 62.9 % (37.0-80.0); Nucleated Red Blood Cells % 0.1 %; Platelet Count (auto) 340 10^3/uL (140-450); Red Blood Cells 3.89 10^6/uL (4.5-5.90); Red Cell Distribution Width 16.1 % (11.8-14.3); White Blood Cell 4.5 10^3/uL (4.4-10.8)
[2018-03-18 15:14] LABS: INR 0.98 (0.9-1.15); Partial Thromboplastin Time 26.7 sec (23.78-33.04); Prothrombin Time 10.5 sec (9.27-12.13)
[2018-03-18 15:18] LABS: Calcium 8.6 mg/dL (8.5-10.1); Potassium 3.8 mmol/L (3.5-5.1)
[2018-03-18 15:22] LABS: BUN/Creatinine Ratio 3.6; Bilirubin, Total 0.6 mg/dL (0.2-1.0); Total Protein 8.4 g/dL (6.4-8.2)
[~2018-03-23] VITALS: Ht 180.3 cm; Wt 95.3 kg
[~2018-03-23] MED LIST changes: +ACCU-CHEK COMFORT CURVE STRIP VI ONE; -ASPI-231 PO; +ASPI81TA27 PO; +BUPIVACAINE 0.75% INJ 10ML MPV SDV IJ ONE; +CINA30TA2 PO; +HYDR-531 PO; +HYDR50TA15 PO; +HYDROmorphone HCL 2 MG/ML VL IV PRN; +INSLANTI SC; -INSUINJ37 SC; +ISOS20TA56 PO; -METO25TA5 PO; +METO25TA62 PO; +METOCLOPRAMIDE HCL 5MG/ml INJ 2ml VIAL ONE; +MIDAZOLAM HCL 1MG/1ML-2 ML VIAL ONE; +NALOXONE HCL 0.4 MG/ML VIAL IV PRN; +NEOMYCIN-BACITRACIN-POLYM 15GM TOP OINT TOP ONE; +NIF30XLT PO; +ONDANSETRON HCL 4 MG/2 ML VIAL IV ONE; +PROPOFOL 10 MG/ML 20 ML IV ONE; -SODB650T PO; +SODI325T PO; +TRAZ50TA2 PO; +ceFAZolin 1GM/50ML 50 ML IV ONE; +diphenhdrAMINE HCL 50 MG/1 ML VL ONE; +fentaNYL CITRATE 100 MCG/2 ML VL ONE
[2018-03-23 12:22] VITALS: BP 176/96
== END | disposition home or self-care (01) ==
LOC: SUR 07:53
PROVIDERS: ATTEND Podiatrist Foot & Ankle Surgery
DX: M24.575 Contracture, left foot (principal); L97.529 Non-pressure chronic ulcer of other part of left foot with unspecified severity; I50.9 Heart failure, unspecified; J45.909 Unspecified asthma, uncomplicated; E11.9 Type 2 diabetes mellitus without complications; F41.9 Anxiety disorder, unspecified; F32.9 Major depressive disorder, single episode, unspecified; Z82.3 Family history of stroke; Z82.49 Family history of ischemic heart disease and other diseases of the circulatory system; Z83.6 Family history of other diseases of the respiratory system; Z82.61 Family history of arthritis; Z80.9 Family history of malignant neoplasm, unspecified; Z84.89 Family history of other specified conditions; Z83.3 Family history of diabetes mellitus; Z81.8 Family history of other mental and behavioral disorders
CPT/HCPCS: 28124; 36415; 80053; 82962; 85025; 85610; 85730; 87070; 87075; 87205; J0690; J1200; J2250; J2704; J2765; J3010; J3490; 87077; 87186

== ENCOUNTER 2018-12-26 20:31 | Inpatient (IN) | payer MEDICARE ==
[~2018-12-26] VITALS: Ht 175.3 cm; Wt 101.1 kg
[~2018-12-26 20:31] MED LIST changes: -ACCU-CHEK COMFORT CURVE STRIP VI ONE; +ASPI-404 PO; -ASPI81TA27 PO; -BUPIVACAINE 0.75% INJ 10ML MPV SDV IJ ONE; +CALC500C3 PO; -HYDROmorphone HCL 2 MG/ML VL IV PRN; -METOCLOPRAMIDE HCL 5MG/ml INJ 2ml VIAL ONE; -MIDAZOLAM HCL 1MG/1ML-2 ML VIAL ONE; -NALOXONE HCL 0.4 MG/ML VIAL IV PRN; -NEOMYCIN-BACITRACIN-POLYM 15GM TOP OINT TOP ONE; -NIF30XLT PO; +NIFE30TA77 PO; -ONDANSETRON HCL 4 MG/2 ML VIAL IV ONE; -PROPOFOL 10 MG/ML 20 ML IV ONE; -ceFAZolin 1GM/50ML 50 ML IV ONE; -diphenhdrAMINE HCL 50 MG/1 ML VL ONE; -fentaNYL CITRATE 100 MCG/2 ML VL ONE
[2018-12-26] MEDS ORDERED: hydrALAZINE HCL 20 MG/ML VL IV ONE (21:00)
[2018-12-26] MEDS ORDERED: ENALAPRILAT 1.25 MG/ML-1ML VIAL IV ONE (21:00)
[2018-12-26 21:21] LABS: Basophils # (auto) 0.1 uL; Basophils % (auto) 0.9 % (0.0-2.0); Eosinophils # (auto) 0.6 uL; Eosinophils % (auto) 9.3 % (0.0-7.0); Hematocrit 36.6 % (41.0-53.0); Hemoglobin 12.1 g/dL (13.5-17.5); Lymphocytes # (auto) 0.7 uL; Lymphocytes % (auto) 11.6 % (10.0-50.0); Mean Corpuscular Hemoglobin 33.5 pg (28.0-32.0); Mean Corpuscular Hgb Conc. 33.1 g/dL (32.0-36.0); Mean Corpuscular Volume 101.3 fL (80.0-100.0); Monocytes # (auto) 0.4 uL; Neutrophils # (auto) 4.4 uL; Neutrophils % (auto) 71.2 % (37.0-80.0); Platelet Count (auto) 240 10^3/uL (140-450); Red Blood Cells 3.61 10^6/uL (4.5-5.90); Red Cell Distribution Width 16.3 % (11.8-14.3); White Blood Cell 6.2 10^3/uL (4.4-10.8)
[2018-12-26 21:29] LABS: INR 1.01 (0.9-1.15); Partial Thromboplastin Time 28.6 sec (23.64-32.05)
[2018-12-26 21:38] LABS: Albumin 2.6 g/dL (3.4-5.0); Calcium 7.8 mg/dL (8.5-10.1); Magnesium 2.7 mg/dL (1.6-2.6)
[2018-12-26 21:44] LABS: BUN/Creatinine Ratio 7.6; Bilirubin, Total 0.5 mg/dL (0.2-1.0)
[2018-12-26 21:55] LABS: Potassium 7.9 mmol/L (3.5-5.1)
[2018-12-26] MEDS ORDERED: SODIUM BICARBONATE 8.4 % INJ 50ML VIAL IV ONE (22:15)
[2018-12-26] MEDS ORDERED: SODIUM ZIRCONIUM CYCL 10 GM PAK PO ONE (22:15)
[2018-12-26] MEDS ORDERED: CALCIUM CHL 100MG/ML 1,000 MG in D5W 5% 100 ML IV ONE (22:15)
[2018-12-26] MEDS ORDERED: DEXTROSE (50%) 50ML SYRG IV ONE (22:15)
[2018-12-26] MEDS ORDERED: ALBUTEROL SULF 2.5 MG/0.5ML(0.5%) NEB SOLN NEB ONE (22:15)
[2018-12-26] MEDS ORDERED: MORPHINE SULFATE 10 MG/ML INJ 1ML SDV IV ONE (22:15)
[2018-12-26] MEDS ORDERED: InsuLIN REG 1unit/0.01ml Soln (100units/ml) IV ONE (22:15)
[2018-12-26] MEDS ORDERED: CALCIUM CHLOR(10%) 100MG/ML 10ML SYRINGE IV ONE (23:13)
[2018-12-26] MEDS ORDERED: SODIUM CHL 0.9% 1000 ML BAG XX ONE (23:45)
[2018-12-27] MEDS ORDERED: NITROGLYCERIN 0.4 MG SL TAB SL PRN (00:45)
[2018-12-27] MEDS ORDERED: MORPHINE SULF INJ 2 MG/ML SYRINGE 1ML IV PRN (00:45)
[2018-12-27] MEDS ORDERED: ACETAMINOPHEN 325 MG TAB PO PRN (00:45)
[2018-12-27] MEDS ORDERED: DEXTROSE (50%) 50ML SYRG IV PRN (00:45)
[2018-12-27] MEDS: HYDROcodone-ACET 5/325MG TAB PO ONE ×2 (04:00→05:14)
[2018-12-27] MEDS ORDERED: LABETALOL HCL 5 MG/ML ML 20ML VIAL IV ONE (06:15)
[2018-12-27] MEDS: GABAPENTIN 100 MG CAP PO SCH ×3 (06:19→21:51)
[2018-12-27] MEDS: ACCU-CHEK COMFORT CURVE STRIP VI SCH ×3 (06:20→18:17)
[2018-12-27] MEDS: InsuLIN REG 1unit/0.01ml Soln (100units/ml) SC SCH ×3 (06:20→18:17)
[2018-12-27 06:44] LABS: BUN/Creatinine Ratio 6.6; Calcium 7.8 mg/dL (8.5-10.1)
[2018-12-27 06:46] LABS: Potassium 6.3 mmol/L (3.5-5.1)
[2018-12-27] MEDS ORDERED: ENOXAPARIN SOD 100 MG/1 ML SYRINGE SC ONE (07:15)
[2018-12-27] MEDS ORDERED: DEXTROSE (50%) 50ML SYRG IV ONE (07:15)
[2018-12-27] MEDS ORDERED: SODIUM BICARBONATE 8.4 % INJ 50ML VIAL IV ONE (07:15)
[2018-12-27] MEDS ORDERED: SODIUM ZIRCONIUM CYCL 10 GM PAK PO ONE (07:15)
[2018-12-27] MEDS ORDERED: InsuLIN REG 1unit/0.01ml Soln (100units/ml) IV ONE (07:15)
[2018-12-27] MEDS ORDERED: CALCIUM GLUC 4.65meq/50ml D5AE 50 ML IV ONE (07:15)
[2018-12-27] MEDS ORDERED: cloNIDine HCL 0.1 MG TAB PO PRN (09:00)
[2018-12-27] MEDS: SEVELAMER 800 MG TAB PO SCH ×3 (09:12→18:17)
[2018-12-27] MEDS: ONDANSETRON HCL 4 MG/2 ML VIAL IV PRN ×2 (09:21→18:47)
[2018-12-27] MEDS: ISOSORBIDE MONONITRATE IR 20 MG TAB PO SCH ×2 (09:22→21:48)
[2018-12-27] MEDS: ASPirin 81 mg TAB PO SCH (09:22)
[2018-12-27] MEDS: PANTOPRAZOLE 40 MG TAB PO SCH (09:23)
[2018-12-27] MEDS: METOPROLOL TARTRATE 25 MG TAB PO SCH ×2 (09:23→21:49)
[2018-12-27] MEDS: hydrALAZINE HCL 25 MG TAB PO SCH ×2 (09:24→21:47)
[2018-12-27] MEDS ORDERED: NIFEdipine ER 30 MG TAB PO SCH (10:00)
[2018-12-27] MEDS ORDERED: SODIUM CHL 0.9% 1000 ML BAG XX ONE (10:15)
[2018-12-27] MEDS ORDERED: HYDROcodone-ACET 7.5/325MG TAB PO ONE (12:00)
[2018-12-27 13:39] LABS: Potassium 4.4 mmol/L (3.5-5.1)
--- NOTE | 2018-12-27 17:10 | NUR ---
Telemetry admit from ER AJAYERNESTINA admitted to Telemetry unit after SBAR received. AAOX 4, breathing even nonlabored, S1, S2, abd soft nontender LBM was yesterday. Right FA fistula dressing clean/dry/intact. IV to left AC 18G intact/patent. 4th and 5th toes on left foot amputated, 5th toe on right foot amputated. A small wound noted to left posterior perea, pt stated he think he got bitten by insect. 2 tumors noted to back of the head. S/P dialysis today, 1.8L was removed per polisher numeral. Patient oriented to Sabino Pimentel RN primary RN, unit, room, bed, and unit policies regarding patient care and visiting hours. Patient now on continuous telemetry monitoring, tele box # 17 and telemetry reading on arrival to unit is SINUS RHYTHM 84. Patient placed on bedside oxygen, weighed by bedscale and encouraged to call if they need something. All questions and concerns addressed, patient verbalized understanding. Bed locked in the lowest position, call light within easy reach, will continue care. VS: 97.5, 89, 21, 90% on RA, 128/63, 0/10.
[2018-12-27 17:40] VITALS: BP 128/63
[2018-12-27] MEDS: HYDROcodone-ACET 7.5/325MG TAB PO PRN (18:18)
--- NOTE | 2018-12-27 19:40 | NUR ---
OPENING SHIFT NOTE RECEIVED REPORT FROM DAY SHIFT RN. PATIENT A/OX4, BEDSIDE COMMODE SELF.NO S/S OF DISTRESS OR SOB. PATIENT COMPLAINS OF PAIN IN THE ABDOMEN,REQUESTING PAIN MEDICATION. WILL MEDICATE PRESCRIBED. UPDATED PATIENT ON POC , VERBALIZED UNDERSTANDING. BED LOCKED IN LOWEST POSITION, CALL LIGHT WITHIN REACH. WILL CONTINUE TO MONITOR PATIENT Q1HR AND PRN.
[2018-12-27] MEDS: ATORVASTATIN 20 MG TAB PO SCH (21:50)
[2018-12-27] MEDS: TEMAZEPAM 15 MG CAP PO PRN (21:57)
[2018-12-27 22:00] VITALS: BP 152/83
[2018-12-28] MEDS: ONDANSETRON HCL 4 MG/2 ML VIAL IV PRN ×3 (00:07→13:02)
[2018-12-28] MEDS: HYDROcodone-ACET 7.5/325MG TAB PO PRN ×3 (00:07→17:17)
[2018-12-28] MEDS: ACCU-CHEK COMFORT CURVE STRIP VI SCH ×4 (00:23→17:12)
[2018-12-28] MEDS: InsuLIN REG 1unit/0.01ml Soln (100units/ml) SC SCH ×4 (00:24→17:12)
--- NOTE | 2018-12-28 04:58 | NUR ---
MRSA SWAB COLLECTED AND SENT TO LAB.
[2018-12-28 05:00] VITALS: BP 160/90
[2018-12-28] MEDS: GABAPENTIN 100 MG CAP PO SCH ×3 (05:53→22:47)
--- NOTE | 2018-12-28 08:00 | NUR ---
CRITICAL LAB Received call from lab with critical lab value of Potassium 5.9; informed Hospitalist Dr. Esteban.
--- NOTE | 2018-12-28 08:00 | NUR ---
Opening Shift Note Assumed care of patient, awake and, but falling asleep as he was talking. No S/S of distress/SOB or pain, but patient reports generalized pain of 8/10. Instructed on POC and to call for assist PRN, and patient verbalized understanding. Will continue to monitor for changes Q1hr and PRN.
[2018-12-28 08:03] LABS: Basophils # (auto) 0.1 uL; Lymphocytes # (auto) 0.9 uL; Mean Corpuscular Volume 101.9 fL (80.0-100.0); Neutrophils # (auto) 3.7 uL
[2018-12-28 08:04] LABS: Basophils % (auto) 1.3 % (0.0-2.0); Eosinophils # (auto) 0.6 uL; Eosinophils % (auto) 10.5 % (0.0-7.0); Hematocrit 35.4 % (41.0-53.0); Hemoglobin 11.8 g/dL (13.5-17.5); Lymphocytes % (auto) 14.9 % (10.0-50.0); Mean Corpuscular Hgb Conc. 33.3 g/dL (32.0-36.0); Monocytes # (auto) 0.7 uL; Neutrophils % (auto) 62.3 % (37.0-80.0); Platelet Count (auto) 250 10^3/uL (140-450); Red Blood Cells 3.48 10^6/uL (4.5-5.90)
[2018-12-28 08:18] LABS: Albumin 2.3 g/dL (3.4-5.0); Calcium 7.6 mg/dL (8.5-10.1)
[2018-12-28 08:21] LABS: BUN/Creatinine Ratio 6.6
[2018-12-28 08:23] LABS: Bilirubin, Total 0.5 mg/dL (0.2-1.0); Total Protein 7.2 g/dL (6.4-8.2)
[2018-12-28 08:30] LABS: Potassium 5.9 mmol/L (3.5-5.1)
--- NOTE | 2018-12-28 08:30 | NUR ---
MEG Dorsey, with Cardiology, at bedside; new orders received.
[2018-12-28 09:00] VITALS: BP 164/92
--- NOTE | 2018-12-28 09:00 | NUR ---
CRITICAL VALUE Received call from lab with critical lab value Troponin 2.29; informed Hospitalist Dr. Esteban.
[2018-12-28] MEDS: NIFEdipine ER 30 MG TAB PO SCH (10:00)
[2018-12-28] MEDS: SEVELAMER 800 MG TAB PO SCH ×3 (10:00→17:06)
[2018-12-28] MEDS: PANTOPRAZOLE 40 MG TAB PO SCH (10:00)
[2018-12-28] MEDS: ISOSORBIDE MONONITRATE IR 20 MG TAB PO SCH ×2 (10:00→22:47)
[2018-12-28] MEDS: METOPROLOL TARTRATE 25 MG TAB PO SCH ×2 (10:00→22:47)
[2018-12-28] MEDS: ASPirin 81 mg TAB PO SCH (10:00)
[2018-12-28] MEDS: hydrALAZINE HCL 25 MG TAB PO SCH ×2 (10:00→22:48)
--- NOTE | 2018-12-28 10:00 | NUR ---
Dr. Adrián Esteban, Hospitalist, at bedside.
[2018-12-28 13:00] VITALS: BP 165/92
--- NOTE | 2018-12-28 13:00 | NUR ---
IV removal IV DC'd with clean sterile technique, catheter fully intact. Pressure dressing applied to site. Patient tolerated well.
--- NOTE | 2018-12-28 13:00 | NUR ---
CRITICAL LAB Received critical lab value; patient positive for MRSA in the nares, and informed Hospitalist Dr. Esteban.
--- NOTE | 2018-12-28 14:31 | NUR ---
IV insertion IV access obtained, via clean sterile technique by inserting 22 gauge catheter at UPPER LEFT ARM after 3 attempt. IV secured properly. No trauma to site. Patient tolerated well.
[2018-12-28 17:00] VITALS: BP 147/89
--- NOTE | 2018-12-28 20:05 | NUR ---
open note assumed care of pt. upon entering room pt awake, alert and oriented x4. pt on contact iso for positive mrsa nares. pt on room air no distress noted or expressed. pt denies any pain at this time. pt updated on plan of care and pt aware of NPO status after midnight for [facility] in the AM. pt had no questions in regards to the procedure. pt bed locked, low and 2x rails up. call light in reach, will round q1hr and prn.
[2018-12-28 22:24] VITALS: BP 143/82
[2018-12-28] MEDS: MUPIROCIN 2% OINT 15gm or 22gm EACHNOSTRI SCH (22:46)
[2018-12-28] MEDS: ATORVASTATIN 20 MG TAB PO SCH (22:47)
[2018-12-29 05:19] VITALS: BP 140/87
[2018-12-29] MEDS: InsuLIN REG 1unit/0.01ml Soln (100units/ml) SC SCH ×5 (06:00→23:16)
[2018-12-29] MEDS: GABAPENTIN 100 MG CAP PO SCH ×3 (06:00→21:37)
[2018-12-29] MEDS: ACCU-CHEK COMFORT CURVE STRIP VI SCH ×5 (06:00→23:16)
--- NOTE | 2018-12-29 07:30 | NUR ---
Patient is in Medical Sales Associate.
[2018-12-29] MEDS: SEVELAMER 800 MG TAB PO SCH ×3 (08:00→17:28)
[2018-12-29] MEDS: hydrALAZINE HCL 25 MG TAB PO SCH ×2 (10:00→21:36)
[2018-12-29] MEDS: ASPirin 81 mg TAB PO SCH (10:00)
[2018-12-29] MEDS: METOPROLOL TARTRATE 25 MG TAB PO SCH ×2 (10:00→21:37)
[2018-12-29] MEDS: ISOSORBIDE MONONITRATE IR 20 MG TAB PO SCH ×2 (10:00→21:37)
--- NOTE | 2018-12-29 10:00 | NUR ---
Patient in Medical Supply Technician. Will give 10:00 meds when he returns.
[2018-12-29] MEDS ORDERED: fentaNYL CITRATE 100 MCG/2 ML VL ONE (10:03)
[2018-12-29] MEDS ORDERED: MIDAZOLAM HCL 1MG/1ML-2 ML VIAL ONE (10:03)
[2018-12-29] MEDS ORDERED: ANGIOMAX 250 MG VIAL IV ONE (10:03)
[2018-12-29] MEDS ORDERED: LIDOCAINE 2%HCL (LOCAL ANESTH.) INJ 20ML MDV ONE (10:04)
[2018-12-29] MEDS ORDERED: IOHEXOL 350 MG/ML 100ML IJ ONE (10:04)
[2018-12-29] MEDS ORDERED: SODIUM CHL 0.9% 0 ML ONE (10:04)
[2018-12-29 10:31] LABS: Hepatitis A Ab IgM Negative; Hepatitis B Core IgM Negative; Hepatitis B Surface Antigen Negative (Negative); Hepatitis C Antibody Negative (Negative)
[2018-12-29] MEDS ORDERED: NITROGLYCERIN 0.4MG/DOSE SPRAY 4.9GM ONE (10:36)
[2018-12-29] MEDS ORDERED: SODIUM CHL 0.9% 1000 ML BAG XX ONE (10:45)
--- NOTE | 2018-12-29 11:50 | NUR ---
Patient returned to room. Patient is alert and oriented. Dressing to right groin dry and intact. No bruising noted. Patient to be flat until 13:00. Call light in reach. Will continue to monitor.
[2018-12-29 13:00] VITALS: BP 176/91
[2018-12-29 13:12] LABS: Basophils # (auto) 0.1 uL; Basophils % (auto) 1.3 % (0.0-2.0); Eosinophils # (auto) 0.6 uL; Eosinophils % (auto) 10.8 % (0.0-7.0); Hematocrit 35.5 % (41.0-53.0); Hemoglobin 11.8 g/dL (13.5-17.5); Lymphocytes # (auto) 1.1 uL; Lymphocytes % (auto) 18.9 % (10.0-50.0); Mean Corpuscular Hemoglobin 33.7 pg (28.0-32.0); Mean Corpuscular Hgb Conc. 33.2 g/dL (32.0-36.0); Mean Corpuscular Volume 101.5 fL (80.0-100.0); Monocytes # (auto) 0.6 uL; Monocytes % (auto) 9.8 % (0.0-12.0); Neutrophils # (auto) 3.4 uL; Neutrophils % (auto) 59.2 % (37.0-80.0); Platelet Count (auto) 287 10^3/uL (140-450); Red Cell Distribution Width 15.9 % (11.8-14.3); White Blood Cell 5.7 10^3/uL (4.4-10.8)
[2018-12-29 13:31] LABS: Partial Thromboplastin Time 29.5 sec (23.64-32.05)
[2018-12-29 13:32] LABS: BUN/Creatinine Ratio 7.5; Calcium 7.5 mg/dL (8.5-10.1)
[2018-12-29 13:43] LABS: Potassium 6.7 mmol/L (3.5-5.1)
--- NOTE | 2018-12-29 14:01 | NUR ---
Received call from Lab - potassium 6.7. Page placed to Dr. Ortega, wallet assembler.
[2018-12-29] MEDS: MUPIROCIN 2% OINT 15gm or 22gm EACHNOSTRI SCH ×2 (14:12→21:35)
[2018-12-29] MEDS: HYDROcodone-ACET 7.5/325MG TAB PO PRN ×2 (15:14→22:00)
--- NOTE | 2018-12-29 15:15 | NUR ---
forestry pilot at bedside. He states he was informed by Dr. Ortega of K+ of 6.7. forestry pilot informed the patient has not had any of his B/P meds today. forestry pilot states he will start dialysis and take blood pressure after 30 minutes and inform us if patient needs B/P meds. Will continue to monitor.
[2018-12-29 17:00] VITALS: BP 176/101
[2018-12-29] MEDS: NIFEdipine ER 30 MG TAB PO SCH (17:29)
[2018-12-29] MEDS: PANTOPRAZOLE 40 MG TAB PO SCH (17:30)
--- NOTE | 2018-12-29 18:51 | NUR ---
Dialysis completed. 3 liters removed. B/P 201/123. Catapres PO given. Will report to NOC shift.
[2018-12-29] MEDS: ATORVASTATIN 20 MG TAB PO SCH (21:38)
[2018-12-29 22:00] VITALS: BP 147/84
[2018-12-29] MEDS: TEMAZEPAM 15 MG CAP PO PRN (23:09)
[2018-12-30 05:23] VITALS: BP 153/87
[2018-12-30 06:20] LABS: Basophils # (auto) 0.1 uL; Basophils % (auto) 1.3 % (0.0-2.0); Eosinophils # (auto) 0.6 uL; Eosinophils % (auto) 10.5 % (0.0-7.0); Hematocrit 33.7 % (41.0-53.0); Hemoglobin 11.3 g/dL (13.5-17.5); Lymphocytes # (auto) 0.8 uL; Lymphocytes % (auto) 14.9 % (10.0-50.0); Mean Corpuscular Hemoglobin 33.9 pg (28.0-32.0); Mean Corpuscular Hgb Conc. 33.7 g/dL (32.0-36.0); Mean Corpuscular Volume 100.8 fL (80.0-100.0); Monocytes # (auto) 0.6 uL; Monocytes % (auto) 10.5 % (0.0-12.0); Neutrophils # (auto) 3.5 uL; Neutrophils % (auto) 62.8 % (37.0-80.0); Nucleated Red Blood Cells % 0.1 %; Platelet Count (auto) 262 10^3/uL (140-450); Red Blood Cells 3.34 10^6/uL (4.5-5.90); White Blood Cell 5.6 10^3/uL (4.4-10.8)
[2018-12-30 06:30] LABS: BUN/Creatinine Ratio 6.7; Calcium 7.4 mg/dL (8.5-10.1)
[2018-12-30 06:32] LABS: Potassium 5.8 mmol/L (3.5-5.1)
[2018-12-30] MEDS: GABAPENTIN 100 MG CAP PO SCH (06:35)
[2018-12-30] MEDS: ACCU-CHEK COMFORT CURVE STRIP VI SCH (06:52)
[2018-12-30] MEDS: InsuLIN REG 1unit/0.01ml Soln (100units/ml) SC SCH (06:53)
--- NOTE | 2018-12-30 07:30 | NUR ---
Opening Shift Note RECEIVED REPORT FROM NOC RN. Assumed care of patient, awake and alert. No S/S of distress/SOB or pain. BED IN LOWEST, LOCKED POSITION WITH SIDERAILS UP x2. Instructed on POC and to call for assist PRN, will continue to monitor for changes Q1hr and PRN.
[2018-12-30] MEDS: SEVELAMER 800 MG TAB PO SCH (08:34)
[2018-12-30 09:00] VITALS: BP 127/80
--- NOTE | 2018-12-30 09:15 | NUR ---
DR. Jimi BATES AT BEDSIDE.
[2018-12-30] MEDS: ISOSORBIDE MONONITRATE IR 20 MG TAB PO SCH (09:57)
[2018-12-30] MEDS: METOPROLOL TARTRATE 25 MG TAB PO SCH (09:57)
[2018-12-30] MEDS: PANTOPRAZOLE 40 MG TAB PO SCH (09:58)
[2018-12-30] MEDS: MUPIROCIN 2% OINT 15gm or 22gm EACHNOSTRI SCH (09:59)
[2018-12-30] MEDS: ASPirin 81 mg TAB PO SCH (09:59)
[2018-12-30] MEDS ORDERED: NIFEdipine ER 30 MG TAB PO SCH (10:00)
[2018-12-30] MEDS: hydrALAZINE HCL 25 MG TAB PO SCH (10:09)
[2018-12-30 11:06] VITALS: BP 127/80
[2018-12-30 13:00] VITALS: BP 143/90
== END 2018-12-30 12:40 | disposition home or self-care (01) | DRG 280 ==
LOC: EDBD 20:31 → ER 20:36 → TELE 20:37 → TELE-EAST 12-27 17:16
PROVIDERS: ADMIT Nurse Practitioner; ATTEND Family Medicine
PROC: 5A1D70Z Performance of Urinary Filtration, Intermittent, Less than 6 Hours Per Day (ICD-10-PCS; 2018-12-26)
PROC: 0W9G3ZZ Drainage of Peritoneal Cavity, Percutaneous Approach (ICD-10-PCS; 2018-12-27)
PROC: 5A1D70Z Performance of Urinary Filtration, Intermittent, Less than 6 Hours Per Day (ICD-10-PCS; 2018-12-27)
PROC: 4A023N7 Measurement of Cardiac Sampling and Pressure, Left Heart, Percutaneous Approach (ICD-10-PCS; principal; 2018-12-29)
PROC: B2111ZZ Fluoroscopy of Multiple Coronary Arteries using Low Osmolar Contrast (ICD-10-PCS; 2018-12-29)
PROC: B2151ZZ Fluoroscopy of Left Heart using Low Osmolar Contrast (ICD-10-PCS; 2018-12-29)
PROC: 5A1D70Z Performance of Urinary Filtration, Intermittent, Less than 6 Hours Per Day (ICD-10-PCS; 2018-12-29)
DX: I21.4 Non-ST elevation (NSTEMI) myocardial infarction (principal); I50.33 Acute on chronic diastolic (congestive) heart failure; N18.6 End stage renal disease; R18.8 Other ascites; I13.2 Hypertensive heart and chronic kidney disease with heart failure and with stage 5 chronic kidney disease, or end stage renal disease; E11.22 Type 2 diabetes mellitus with diabetic chronic kidney disease; Z99.2 Dependence on renal dialysis; I25.10 Atherosclerotic heart disease of native coronary artery without angina pectoris; D63.8 Anemia in other chronic diseases classified elsewhere; E87.5 Hyperkalemia; E11.65 Type 2 diabetes mellitus with hyperglycemia; E11.40 Type 2 diabetes mellitus with diabetic neuropathy, unspecified; E11.51 Type 2 diabetes mellitus with diabetic peripheral angiopathy without gangrene; I05.0 Rheumatic mitral stenosis; R06.03 Acute respiratory distress; B95.62 Methicillin resistant Staphylococcus aureus infection as the cause of diseases classified elsewhere; I27.29 Other secondary pulmonary hypertension; I50.82 Biventricular heart failure; Z80.1 Family history of malignant neoplasm of trachea, bronchus and lung; Z86.711 Personal history of pulmonary embolism; Z82.49 Family history of ischemic heart disease and other diseases of the circulatory system; Z79.4 Long term (current) use of insulin
CPT/HCPCS: 93458; 96365; 96375; 99291; G0278; 36415; 37224; 71045; 75716; 76705; 76942; 80048; 80053; 80074; 82962; 83735; 83880; 84132; 84484; 85025; 85610; 85730; 86850; 86900; 86901; 87081; 90935; 93005; 93306; 93926; 93970; 94640; 99152; G0378; J0610; J1642; J1815; J2250; J2405; J7060

== ENCOUNTER 2019-03-17 08:31 | Emergency (ER) | payer MEDICARE ==
[~2019-03-17] VITALS: Ht 177.8 cm; Wt 99.8 kg
[~2019-03-17 08:31] MED LIST changes: -METO25TA62 PO; +METO25TA93 PO; +NIFE1TAB36 PO; -NIFE30TA77 PO
[2019-03-17 10:36] LABS: Basophils # (auto) 0.1 uL; Basophils % (auto) 1.4 % (0.0-2.0); Eosinophils # (auto) 0.2 uL; Eosinophils % (auto) 5.1 % (0.0-7.0); Hematocrit 33.9 % (41.0-53.0); Hemoglobin 11.3 g/dL (13.5-17.5); Lymphocytes # (auto) 0.7 uL; Lymphocytes % (auto) 14.5 % (10.0-50.0); Mean Corpuscular Hemoglobin 31.8 pg (28.0-32.0); Mean Corpuscular Hgb Conc. 33.2 g/dL (32.0-36.0); Mean Corpuscular Volume 95.9 fL (80.0-100.0); Monocytes # (auto) 0.4 uL; Monocytes % (auto) 9.5 % (0.0-12.0); Neutrophils # (auto) 3.3 uL; Neutrophils % (auto) 69.5 % (37.0-80.0); Platelet Count (auto) 253 10^3/uL (140-450); Red Blood Cells 3.54 10^6/uL (4.5-5.90); Red Cell Distribution Width 16.5 % (11.8-14.3); White Blood Cell 4.7 10^3/uL (4.4-10.8)
[2019-03-17 10:55] LABS: Albumin 2.3 g/dL (3.4-5.0); Calcium 7.5 mg/dL (8.5-10.1); Potassium 3.5 mmol/L (3.5-5.1)
[2019-03-17 11:00] LABS: BUN/Creatinine Ratio 6.9; Bilirubin, Total 0.5 mg/dL (0.2-1.0); Total Protein 7.6 g/dL (6.4-8.2)
[2019-03-17] MEDS ORDERED: ONDANSETRON HCL 4 MG/2 ML VIAL IV ONE (11:30)
[2019-03-17] MEDS ORDERED: MORPHINE SULFATE 4 MG/ML SYR/VIAL IV ONE (11:30)
[2019-03-17] MEDS ORDERED: LORazepam 2MG/ML-1ML VIAL IV ONE (14:15)
[2019-03-17] MEDS ORDERED: cloNIDine HCL 0.1 MG TAB PO ONE (16:15)
[2019-03-17 23:07] VITALS: BP 168/89
== END 2019-03-18 | disposition home or self-care (01) ==
LOC: ER 08:31 → EDBD 08:31 → ER 03-18
DX: K80.20 Calculus of gallbladder without cholecystitis without obstruction (principal); G89.29 Other chronic pain; M54.5 Low back pain; E11.22 Type 2 diabetes mellitus with diabetic chronic kidney disease; I13.2 Hypertensive heart and chronic kidney disease with heart failure and with stage 5 chronic kidney disease, or end stage renal disease; N18.6 End stage renal disease; I50.9 Heart failure, unspecified; Z79.82 Long term (current) use of aspirin; Z79.4 Long term (current) use of insulin; Z79.899 Other long term (current) drug therapy
CPT/HCPCS: 36415; 70450; 71250; 74176; 80053; 82140; 82962; 84484; 85025; 96374; 96375; 99284; J2060; J2270; J2405

== ENCOUNTER 2019-08-16 07:21 | Emergency (ER) | payer MEDICARE ==
[~2019-08-16] VITALS: Ht 180.3 cm; Wt 109.3 kg
[~2019-08-16 07:21] MED LIST changes: -ASPI-404 PO; +ASPI-543 PO
[2019-08-16 08:37] LABS: Basophils # (auto) 0.1 10 ^3/uL (0-0.2); Basophils % (auto) 1.7 % (0.0-2.0); Eosinophils # (auto) 0.4 10 ^3/uL (0-0.8); Eosinophils % (auto) 6.7 % (0.0-7.0); Hematocrit 32.1 % (41.0-53.0); Hemoglobin 10.6 g/dL (13.5-17.5); Lymphocytes # (auto) 0.7 10 ^3/uL (0.4-5.4); Lymphocytes % (auto) 12.9 % (10.0-50.0); Mean Corpuscular Hemoglobin 32.3 pg (28.0-32.0); Mean Corpuscular Hgb Conc. 32.9 g/dL (32.0-36.0); Mean Corpuscular Volume 98.2 fL (80.0-100.0); Monocytes # (auto) 0.6 10 ^3/uL (0-1.3); Monocytes % (auto) 10.3 % (0.0-12.0); Neutrophils # (auto) 3.7 10 ^3/uL (1.6-8.6); Neutrophils % (auto) 68.4 % (37.0-80.0); Nucleated Red Blood Cells % 0.1 %; Platelet Count (auto) 288 10^3/uL (140-450); Red Blood Cells 3.27 10^6/uL (4.5-5.90); Red Cell Distribution Width 16.3 % (11.8-14.3); White Blood Cell 5.4 10^3/uL (4.4-10.8)
[2019-08-16 08:53] LABS: Albumin 2.4 g/dL (3.4-5.0); Anion Gap 8 (5-15); Blood Urea Nitrogen 43 mg/dL (7-18); Calcium 7.3 mg/dL (8.5-10.1); Carbon Dioxide 31 mmol/L (21-32); Chloride 94 mmol/L (98-107); Glucose 152 mg/dL (74-106); Magnesium 2.4 mg/dL (1.6-2.6); Potassium 4.4 mmol/L (3.5-5.1); Sodium 133 mmol/L (136-145)
[2019-08-16 08:58] LABS: Alkaline Phosphatase 143 U/L (45-117); Aspartate Aminotransferase 25 U/L (15-37); BUN/Creatinine Ratio 6.9; GFR African American 13 mL/min; GFR Non-African American 11 mL/min
[2019-08-16 08:59] LABS: Alanine Aminotransferase 19 U/L (16-61); Bilirubin, Total 0.7 mg/dL (0.2-1.0); Total Protein 7.9 g/dL (6.4-8.2)
[2019-08-16 11:24] VITALS: BP 127/79
== END 2019-08-16 12:14 | disposition home or self-care (01) ==
LOC: EDUNIT# 07:21 → ER 07:21 → EDBD 07:21 → ER 12:14
DX: R07.89 Other chest pain (principal); D53.9 Nutritional anemia, unspecified; R60.9 Edema, unspecified; E03.9 Hypothyroidism, unspecified; I77.1 Stricture of artery; E11.22 Type 2 diabetes mellitus with diabetic chronic kidney disease; I13.2 Hypertensive heart and chronic kidney disease with heart failure and with stage 5 chronic kidney disease, or end stage renal disease; I50.9 Heart failure, unspecified; N18.6 End stage renal disease; E43 Unspecified severe protein-calorie malnutrition; Z68.33 Body mass index [BMI] 33.0-33.9, adult
CPT/HCPCS: 36415; 71045; 80053; 83735; 83880; 84443; 84484; 85025; 93005

== ENCOUNTER 2020-01-14 11:52 | Inpatient (IN) | payer MEDICARE ==
[~2020-01-14] VITALS: Ht 177.8 cm; Wt 83.2 kg
[2020-01-14] VITALS (23 sets, daily range): BP systolic 70–150; BP diastolic 34–78
[2020-01-14] MEDS ORDERED: MIDAZOLAM DRIP 50 mg/50mL 50 ML IV ONE (11:59)
[2020-01-14] MEDS ORDERED: ETOMIDATE (2MG/ML) 20ML VIAL IV ONE ×3 (11:59→12:45)
[2020-01-14] MEDS ORDERED: DEXTROSE 10% 1,000 ML IV ONE ×2 (12:03→12:45)
[2020-01-14] MEDS ORDERED: SUCCINYLCHOLINE CHLORIDE 20 MG/ML 10ML VIAL IV ONE ×2 (12:07→12:45)
[2020-01-14] MEDS: MIDAZOLAM DRIP 50 mg/50mL 50 ML IV SCH (12:15)
[2020-01-14] MEDS ORDERED: FUROSEMIDE 40 MG/4 ML VIAL IV ONE ×2 (12:15→12:30)
[2020-01-14 13:09] LABS: Basophils # (auto) 0 10 ^3/uL (0-0.2); Basophils % (auto) 0.1 % (0.0-2.0); Eosinophils # (auto) 0 10 ^3/uL (0-0.8); Hematocrit 41.3 % (41.0-53.0); Hemoglobin 13.8 g/dL (13.5-17.5); Lymphocytes # (auto) 0.3 10 ^3/uL (0.4-5.4); Lymphocytes % (auto) 3.3 % (10.0-50.0); Mean Corpuscular Hemoglobin 32.3 pg (28.0-32.0); Mean Corpuscular Hgb Conc. 33.6 g/dL (32.0-36.0); Mean Corpuscular Volume 96.2 fL (80.0-100.0); Monocytes # (auto) 0.4 10 ^3/uL (0-1.3); Monocytes % (auto) 4.1 % (0.0-12.0); Neutrophils # (auto) 9.6 10 ^3/uL (1.6-8.6); Neutrophils % (auto) 92.5 % (37.0-80.0); Nucleated Red Blood Cells % 0.2 %; Platelet Count (auto) 357 10^3/uL (140-450); Red Blood Cells 4.29 10^6/uL (4.5-5.90); Red Cell Distribution Width 16.7 % (11.8-14.3); White Blood Cell 10.4 10^3/uL (4.4-10.8)
[2020-01-14 13:37] LABS: Alanine Aminotransferase 20 U/L (16-61); Alkaline Phosphatase 148 U/L (45-117); Anion Gap 12 (5-15); Aspartate Aminotransferase 41 U/L (15-37); BUN/Creatinine Ratio 7.9; Bilirubin, Total 0.7 mg/dL (0.2-1.0); Blood Alcohol < 3.0 mg/dL (0-5); Calcium 6.5 mg/dL (8.5-10.1); Carbon Dioxide 26 mmol/L (21-32); Chloride 92 mmol/L (98-107); GFR African American 7 mL/min; GFR Non-African American 6 mL/min; Glucose 119 mg/dL (74-106); Sodium 130 mmol/L (136-145); Total Protein 7.7 g/dL (6.4-8.2)
[2020-01-14] MEDS ORDERED: PROPOFOL 10 MG/ML 20 ML IV ONE (13:45)
[2020-01-14] MEDS ORDERED: NITROGLYCERIN 50MG/250ML 250 ML IV ONE (13:45)
[2020-01-14] MEDS ORDERED: PIPERACILLIN-TAZOB 3.375GM 100 ML IV ONE (13:45)
[2020-01-14 13:59] LABS: Blood Urea Nitrogen 81 mg/dL (7-18); Potassium 6.6 mmol/L (3.5-5.1)
[2020-01-14] MEDS ORDERED: HYDROcodone-ACET 5/325MG TAB PO PRN (14:00)
[2020-01-14] MEDS ORDERED: ACETAMINOPHEN 325 MG TAB PO PRN (14:00)
[2020-01-14] MEDS ORDERED: ONDANSETRON HCL 4 MG/2 ML VIAL IV PRN (14:00)
[2020-01-14] MEDS ORDERED: DOCUSATE SOD 100 MG CAP PO PRN (14:00)
[2020-01-14] MEDS ORDERED: SODIUM ZIRCONIUM CYCL 10 GM PAK PO ONE (14:30)
[2020-01-14] MEDS ORDERED: ALBUTEROL SULF 2.5 MG/0.5ML(0.5%) NEB SOLN NEB ONE (14:30)
[2020-01-14] MEDS ORDERED: CALCIUM GLUC 4.65meq/50ml D5AE 50 ML IV ONE (14:30)
[2020-01-14] MEDS ORDERED: DEXTROSE (50%) 50ML SYRG IV ONE (14:30)
[2020-01-14] MEDS ORDERED: InsuLIN REG 1unit/0.01ml Soln (100units/ml) IV ONE (14:30)
[2020-01-14] MEDS: PROPOFOL 100 ML IV SCH (14:49)
[2020-01-14 16:55] LABS: CRP High Sensitivity 7.33 mg/dL (< 0.3)
[2020-01-14] MEDS: SODIUM CHLORIDE 0.9% 1,000 ML IV SCH (17:41)
--- NOTE | 2020-01-14 18:03 | NUR ---
REPORT RECEIVED FROM SARAH LEHMAN FROM ER . PATIENT TO GO TO ROOM 103 ICU. PER RN THERE IS NO CURRENT ORDER TO CHECK BLOOD SUGARS AND THERE HAS NOT BEEN A GLUCOSE CHECK SINCE ADMISSION.
--- NOTE | 2020-01-14 18:30 | NUR ---
Admit to ICU from ER on vent ERNESTINA MOSS admitted to ICU via gurney on cardiac cath technologist, intubated and being bagged by Respiratory Therapist. Patient transferred to bed, connected to mechanical ventilator by therapist, ISIAH at bedside. Patient connected to ICU monitoring, weighed by gretchen, oriented to Nina Esteves, primary RN, unit, ventilator and sedation. Rectal thermometer placed, patients rectal temp 95.9 F, started patient on bear hugger blanket. Connected patient OGT to LIS and dark black drainage noted, will continue to monitor. Increased sedations per protocol as patient is biting tube and fighting ventilator. Bed in low position. Will continue to monitor.
--- NOTE | 2020-01-14 19:10 | NUR ---
Report given to industrial sales manager nurse. Patient resting in bed intubated and sedated. Endorsed admission completion to industrial sales manager nurse. Also endorsed wound care photos to be taken.
--- NOTE | 2020-01-14 19:15 | NUR ---
START OF SHIFT NOTE PATIENT RECEIVED IN BED. PATIENT INTUBATED AND SEDATED. PATIENT PLACED IN DROPLET RESP ISOLATION COVID RULE OUT. PATIENT WITH LOW BLOOD PRESSURE, CALL PLACED TO HOSPITALIST. PATEINT WITH DARK BLOODY CONTENTS ASPIRATED FROM OG TUBE. PATIENT ON BEDSIDE MONTIOR. SAFETY MAINTAINED. WILL CONTINUE TO MONITOR.
[2020-01-14] MEDS ORDERED: NOREPINEPHRINE 8 MG/250ML KIT 250 ML IV ONE (19:50)
--- NOTE | 2020-01-14 20:00 | NUR ---
CALL BACK FROM DR. PATE RECEIVED. MADE AWARE OF PATIENT'S BLOOD PRESSURE, LOW BLOOD SUGAR, AND BLOODY GASTRIC CONTENT. ORDERS RECEIVED FOR LEVOPHED DRIP, ACCUCHECK EVERY 4 HOURS, STAT H AND H, AND STANDING ORDER FOR TRANSFUSION FOR HGB BELOW 7.
[2020-01-14] MEDS: NOREPINEPHRINE 8 MG/250ML KIT 250 ML IV SCH (20:14)
[2020-01-14 20:17] LABS: Hematocrit 34.8 % (41.0-53.0); Hemoglobin 11.7 g/dL (13.5-17.5)
[2020-01-14] MEDS: ACCU-CHEK COMFORT CURVE STRIP VI SCH (20:29)
--- NOTE | 2020-01-14 20:30 | NUR ---
POC ACCU-CHECK BLOOD SUGAR LEVEL OF 88
--- NOTE | 2020-01-14 22:45 | NUR ---
PATIENT'S TEMPERATURE IMPROVED PATIENT TEMPERATURE IMPROVED, BLANKETS REMOVED AND TAKEN OFF BEAR HUGGER BLANKET. VITAL SIGNS STABLE. WILL CONTINUE TO MONITOR.
[2020-01-15] VITALS (95 sets, daily range): BP systolic 72–191; BP diastolic 0–94
--- NOTE | 2020-01-15 | NUR ---
PATIENT WITH ELEVATED TEMP. ICE PACKS APPLIED, ALL OTHER VITAL SIGNS STABLE. PATIENT TOLERATING VENT WELL. SAFETY MAINTAINED. WILL CONTINUE TO MONITOR.
--- NOTE | 2020-01-15 00:40 | NUR ---
PATIENT WITH WOUND TO MEDIAL ASPECT OF DISTAL LEFT FOOT, POSSIBLE BUNION WOUND. PATIENT WITH AMPUTATED 4TH AND 5TH TOES ON LEFT FOOT, HEALED. PHOTOGRAPH TAKEN.
[2020-01-15] MEDS: ACCU-CHEK COMFORT CURVE STRIP VI SCH ×7 (04:00→23:58)
[2020-01-15 05:02] LABS: Basophils # (auto) 0 10 ^3/uL (0-0.2); Basophils % (auto) 0.5 % (0.0-2.0); Eosinophils # (auto) 0.1 10 ^3/uL (0-0.8); Eosinophils % (auto) 0.9 % (0.0-7.0); Hematocrit 33.5 % (41.0-53.0); Hemoglobin 10.9 g/dL (13.5-17.5); Lymphocytes % (auto) 11.2 % (10.0-50.0); Mean Corpuscular Hemoglobin 31.6 pg (28.0-32.0); Mean Corpuscular Hgb Conc. 32.4 g/dL (32.0-36.0); Mean Corpuscular Volume 97.4 fL (80.0-100.0); Monocytes # (auto) 0.9 10 ^3/uL (0-1.3); Neutrophils # (auto) 6.7 10 ^3/uL (1.6-8.6); Neutrophils % (auto) 77.4 % (37.0-80.0); Nucleated Red Blood Cells % 0.4 %; Platelet Count (auto) 296 10^3/uL (140-450); Red Blood Cells 3.44 10^6/uL (4.5-5.90); Red Cell Distribution Width 16.8 % (11.8-14.3); White Blood Cell 8.6 10^3/uL (4.4-10.8)
[2020-01-15 05:22] LABS: Calcium 6.1 mg/dL (8.5-10.1)
[2020-01-15 05:26] LABS: BUN/Creatinine Ratio 6.7
[2020-01-15 05:42] LABS: Potassium 5.9 mmol/L (3.5-5.1)
--- NOTE | 2020-01-15 07:00 | NUR ---
Opening note Assumed care of patient at this time. Report received from ANJEL RN. POC reviewed. Head to toe assessment complete, see intervention spreadsheet for complete details. Received pt intubated, sedated. VSS. Received pt with femoral central line. Bryan catheter in place, pt does not have any output. Rectal temp monitor in place. OGT to LIS, with scant bloody output. Observed pt with scheral edema. Edema noted in all extremities. Wounds noted and documented on element winding machine tender. Bed locked and in lowest position, safety precautions in place. Will monitor pt carefully.
[2020-01-15] MEDS: SODIUM CHLORIDE 0.9% 1,000 ML IV SCH ×2 (07:18→23:59)
[2020-01-15] MEDS: AZITHROMYCIN 500MG/ 250ML 250 ML IV SCH (10:17)
--- NOTE | 2020-01-15 10:44 | NUR ---
Critical labs Spoke with Dr. Evans's office in regards to potassium 5.6 this am and request for dialysis.
--- NOTE | 2020-01-15 10:45 | NUR ---
MD rounds Dr alberto at bedside, new orders received for CPAP after Dialysis. BS 136, D10 gtt turned off at this time.
--- NOTE | 2020-01-15 10:55 | NUR ---
Nutrition Consult/assessment Notes please see attached link for complete assessment Est energy needs ABW 91 [id number] kcal (27-30 kcal/kg ABW), Est protein needs :109-127g (1.2-1.4g/kg ABW R/T HD) Will monitor and reassess prn. Addendum: 01/15/20 at [address] Amended: Links added.
[2020-01-15] MEDS ORDERED: DEXTROSE (50%) 50ML SYRG IV ONE (11:45)
[2020-01-15] MEDS ORDERED: InsuLIN REG 1unit/0.01ml Soln (100units/ml) IV ONE (11:45)
[2020-01-15] MEDS ORDERED: SODIUM BICARBONATE 8.4% INJ 50ML SYRINGE IV ONE (11:45)
[2020-01-15] MEDS ORDERED: ALBUTEROL SULF 2.5 MG/0.5ML(0.5%) NEB SOLN NEB ONE (11:45)
[2020-01-15] MEDS ORDERED: CALCIUM GLUC 4.65meq/50ml D5AE 50 ML IV ONE (11:45)
[2020-01-15] MEDS: PROPOFOL 100 ML IV SCH (14:30)
--- NOTE | 2020-01-15 14:57 | NUR ---
isotope technician at bedside
[2020-01-15] MEDS: SODIUM ZIRCONIUM CYCL 10 GM PAK PO SCH ×2 (15:27→21:40)
--- NOTE | 2020-01-15 16:21 | NUR ---
EEG-ELECTROENCEPHALOGRAM COMPLETED AT BED SIDE @ 1523.
[2020-01-15 17:41] LABS: INR 1.31 (0.9-1.15)
--- NOTE | 2020-01-15 18:23 | NUR ---
PT receiving Dialysis Tar Man at bedside. PT tolerating well.
--- NOTE | 2020-01-15 19:10 | NUR ---
START OF SHIFT REPORT PATIENT RECEIVED IN BED SEDATED, INTUBATED, AND ON VENT. NO DISTRESS, PATIENT TOLERATING VENT WELL. VITAL SIGNS STABLE, PT ON PRESSOR. PATIENT RECEIVING DIALYSIS TREATMENT AT THIS TIME. NO APPARENT PAIN OR DISCOMFORT. PATIENT WITH LYMAN HANGING BELOW PATIENT, NO URINE OUTPUT. PATIENT TURNED. SAFETY MAINTAINED. WILL CONTINUE TO MONITOR.
[2020-01-15] MEDS: NOREPINEPHRINE 8 MG/250ML KIT 250 ML IV SCH (21:07)
[2020-01-15] MEDS: PANTOPRAZOLE 40 MG/10 ML VIAL INJ IV SCH (22:03)
[2020-01-16] VITALS (101 sets, daily range): BP systolic 98–180; BP diastolic 56–94
[2020-01-16] MEDS: ACCU-CHEK COMFORT CURVE STRIP VI SCH ×5 (04:18→19:50)
[2020-01-16 04:36] LABS: Basophils # (auto) 0 10 ^3/uL (0-0.2); Basophils % (auto) 0.5 % (0.0-2.0); Eosinophils # (auto) 0.2 10 ^3/uL (0-0.8); Eosinophils % (auto) 2.8 % (0.0-7.0); Hematocrit 31.8 % (41.0-53.0); Hemoglobin 10.3 g/dL (13.5-17.5); Lymphocytes # (auto) 0.9 10 ^3/uL (0.4-5.4); Lymphocytes % (auto) 12.6 % (10.0-50.0); Mean Corpuscular Hemoglobin 31.7 pg (28.0-32.0); Mean Corpuscular Hgb Conc. 32.5 g/dL (32.0-36.0); Mean Corpuscular Volume 97.5 fL (80.0-100.0); Monocytes # (auto) 0.6 10 ^3/uL (0-1.3); Monocytes % (auto) 9.2 % (0.0-12.0); Neutrophils # (auto) 5.2 10 ^3/uL (1.6-8.6); Neutrophils % (auto) 74.9 % (37.0-80.0); Nucleated Red Blood Cells % 0.1 %; Platelet Count (auto) 202 10^3/uL (140-450); Red Blood Cells 3.26 10^6/uL (4.5-5.90); Red Cell Distribution Width 17.2 % (11.8-14.3)
[2020-01-16 04:59] LABS: Potassium 4.3 mmol/L (3.5-5.1)
[2020-01-16 05:09] LABS: BUN/Creatinine Ratio 5.9; Calcium 6.4 mg/dL (8.5-10.1)
[2020-01-16] MEDS: SODIUM ZIRCONIUM CYCL 10 GM PAK PO SCH ×3 (05:57→22:39)
[2020-01-16] MEDS ORDERED: SODIUM CHL 0.9% 1000 ML BAG XX ONE (07:00)
--- NOTE | 2020-01-16 08:00 | NUR ---
RECEIVED PHONE CALL FROM FAMILY SPOKE WITH HERMES DAUGHTER, RECEIVED CORRECT PASSWORD. UPDATED ON PATIENT STATUS
[2020-01-16] MEDS ORDERED: LIDOCAINE VISCOUS 2% 15ML UD ONE (08:41)
[2020-01-16] MEDS ORDERED: SODIUM CHLORIDE LOCK 10 ML ONE (08:41)
[2020-01-16] MEDS ORDERED: MIDAZOLAM HCL 5 MG/ML-1ML VIAL ONE (08:42)
[2020-01-16] MEDS ORDERED: diphenhdrAMINE HCL 50 MG/1 ML VL ONE (08:42)
[2020-01-16] MEDS ORDERED: fentaNYL CITRATE 100 MCG/2 ML VL ONE (08:42)
[2020-01-16] MEDS: DEXTROSE (50%) 50ML SYRG IV PRN (08:45)
--- NOTE | 2020-01-16 08:45 | NUR ---
BS 47 ADMINISTERED D 50 RECHECKED 10 MINUTES LATER AND BS 114
--- NOTE | 2020-01-16 09:00 | NUR ---
HD NURSE AT BEDSIDE BEGIN HD PER VERA ORDER
--- NOTE | 2020-01-16 09:20 | NUR ---
MD SMITH AT BEDSIDE UPDATED ON PATIENT STATUS. NO NEW ORDERS RECEIVED
[2020-01-16] MEDS: AZITHROMYCIN 500MG/ 250ML 250 ML IV SCH (09:35)
[2020-01-16] MEDS: PANTOPRAZOLE 40 MG/10 ML VIAL INJ IV SCH ×2 (09:35→22:09)
--- NOTE | 2020-01-16 10:20 | NUR ---
MD DEWITT AT BEDSIDE UPDATED ON PATIENT STATUS. NEW ORDERS RECEIVED
--- NOTE | 2020-01-16 12:00 | NUR ---
MD SMITH AT BEDSIDE FOR PROCEDURE
[2020-01-16] MEDS: MIDAZOLAM DRIP 50 mg/50mL 50 ML IV SCH (12:45)
--- NOTE | 2020-01-16 13:01 | NUR ---
WOUND CARE NOTE: Wound care in to see patient per wound care request regarding " Left Foot wound". Bedside nurse took photograph of patient's wound upon admission for reference. Patient is 39 years old male with admitting diagnosis of Suspected Metabolic Encephalopathy, ESRD. Patient is resting in low air loss bed in ICU Rm. 103. Patient is intubated and mechanically ventilated. Patient appears to be in no pain using Tran Reddy Faces Pain Scale. His current Eitan score is 13. Skin assessment done with the assistance of patient's nurse, DOMINIK Fraire. Patient has multi, dry, intact scabs to extremities. Patient is long standing Diabetic and Dialysis patient. He has history of multiple Diabetic Foot Ulcers to bilateral feet and has had toes amputated. His Lt foot 4th and Lt 5th are missing and has well healed scar to lateral aspect of L distal lateral foot. 4x4cm dry, closed/hyperkeratotic DFU noted to his distal L medial foot. Bedside nurse took photograph of dry, scabbed DFU for reference and applied protective dry dressing. Patient's R Foot noted with missing R 2nd toe. His BLE down to his foot has hyperpigmented skin. Patient's upper sacrum/lower back noted with dry 0.5x0.5cm skin tear looks like from scab that came off. Cleansed and covered with protective opti foam gentle dressing. Repositioned patient for comfort facing his Rt. side, redistributed pressure points with pillows. Patient tolerated well. DOMINIK Rayo at bedside. RECOMMENDATION: Frequent turning and repositioning schedule as condition permits, redistribute pressure points with pillows, elevate heels on pillows, continue monitoring by wound care while patient is intubated and Eitan score is <18. Addendum: 01/16/20 at 1549 by Cathy Cabral RN Amended: Links added.
--- NOTE | 2020-01-16 15:00 | NUR ---
RECEIVED PHONE CALL FROM FAMILY SPOKE WITH HERMES DAUGHTER, RECEIVED CORRECT PASSWORD. UPDATED ON PATIENT STATUS
--- NOTE | 2020-01-16 15:42 | NUR ---
PATIENT RETURN FROM RADIOLOGY
--- NOTE | 2020-01-16 16:01 | NUR ---
RT Transport Note: Patient transported to CT with DOMINIK Díaz. Patient transported to and from procedure on ventilator with previous ordered settings. Patient on strategic debriefing officer with alarms set and audible, ambu-bag/mask connected to 02 tank. Patient returned to room with no adverse reaction noted. Transport completed without incident.
[2020-01-16] MEDS: SODIUM CHLORIDE 0.9% 1,000 ML IV SCH (17:33)
[2020-01-16] MEDS: PROPOFOL 100 ML IV SCH (17:33)
--- NOTE | 2020-01-16 19:10 | NUR ---
START OF SHIFT NOTE PATIENT RECEIVED IN BED, SEDATED, INTUBATED, AND ON VENT. NO DISTRESS. PATIENT TOLERATING VENT WELL. PATIENT ON BEDSIDE MONITOR. VITAL SIGNS STABLE, AND PATIENT OFF PRESSORS AT THIS TIME. NO APPARENT PAIN OR DISCOMFORT. PATIENT TURNED AND REPOSITIOINS. LYMAN HANGING OFF GROUND BELOW PATIENT, NO URINE OUTPUT. SAFETY MAINTAINED WILL CONTINUE TO MONITOR.
[2020-01-16] MEDS: NOREPINEPHRINE 8 MG/250ML KIT 250 ML IV SCH (19:45)
[2020-01-16] MEDS ORDERED: EPOETIN ALFA 10,000 UNIT/1 ML VIAL SC ONE (21:00)
[2020-01-16] MEDS ORDERED: PANTOPRAZOLE 40mg/50ML NS AE 50 ML IV ONE (22:09)
[2020-01-17] VITALS (77 sets, daily range): BP systolic 118–180; BP diastolic 71–109
[2020-01-17] MEDS: ACCU-CHEK COMFORT CURVE STRIP VI SCH ×6 (04:47→19:37)
[2020-01-17 05:49] LABS: Basophils # (auto) 0 10 ^3/uL (0-0.2); Basophils % (auto) 0.7 % (0.0-2.0); Eosinophils # (auto) 0.4 10 ^3/uL (0-0.8); Eosinophils % (auto) 6.5 % (0.0-7.0); Hematocrit 32.1 % (41.0-53.0); Hemoglobin 10.3 g/dL (13.5-17.5); Lymphocytes # (auto) 0.8 10 ^3/uL (0.4-5.4); Lymphocytes % (auto) 12.1 % (10.0-50.0); Mean Corpuscular Hemoglobin 31.3 pg (28.0-32.0); Mean Corpuscular Hgb Conc. 32.2 g/dL (32.0-36.0); Mean Corpuscular Volume 97.1 fL (80.0-100.0); Monocytes # (auto) 0.5 10 ^3/uL (0-1.3); Monocytes % (auto) 8.2 % (0.0-12.0); Neutrophils # (auto) 4.5 10 ^3/uL (1.6-8.6); Neutrophils % (auto) 72.5 % (37.0-80.0); Platelet Count (auto) 189 10^3/uL (140-450); Red Cell Distribution Width 17.5 % (11.8-14.3); White Blood Cell 6.3 10^3/uL (4.4-10.8)
[2020-01-17 06:09] LABS: Potassium 3.8 mmol/L (3.5-5.1)
[2020-01-17 06:14] LABS: BUN/Creatinine Ratio 5.1; Calcium 6.4 mg/dL (8.5-10.1)
[2020-01-17] MEDS: SODIUM ZIRCONIUM CYCL 10 GM PAK PO SCH (06:18)
[2020-01-17] MEDS: AZITHROMYCIN 500MG/ 250ML 250 ML IV SCH (08:40)
[2020-01-17] MEDS: PROPOFOL 100 ML IV SCH (08:42)
[2020-01-17] MEDS: MIDAZOLAM DRIP 50 mg/50mL 50 ML IV SCH (08:42)
[2020-01-17] MEDS: SODIUM CHLORIDE 0.9% 1,000 ML IV SCH (08:42)
[2020-01-17] MEDS: DEXTROSE (50%) 50ML SYRG IV PRN ×2 (08:46→16:27)
--- NOTE | 2020-01-17 08:49 | NUR ---
HYPOGLYCEMIA PATIENTS BLOOD SUGAR CHECKED VIA FINGERSTICK READING 61. NO OBVIOUS S/S NOTED DUE TO POSSIBLE SEDATION. FOR PRECAUTIONS D50 GIVEN. WILL CONTINUE TO MONITOR.
--- NOTE | 2020-01-17 09:00 | NUR ---
SEDATION VACATION PERFORMED FOR POSSIBLE CPAP TRIAL. SEE IV SPREADSHEET. Addendum: 01/17/20 at 1117 by Laurita Mendieta RN Amended: Links added.
--- NOTE | 2020-01-17 09:50 | NUR ---
BLOOD SUGAR FOLLOW UP BLOOD SUGAR READING 108. WILL CONTINUE TO MONITOR.
[2020-01-17] MEDS: PANTOPRAZOLE 40 MG/10 ML VIAL INJ IV SCH ×2 (10:00→21:46)
[2020-01-17] MEDS ORDERED: cefTRIAXone 1GM/50ML D5W 50 ML IV ONE (11:00)
--- NOTE | 2020-01-17 11:09 | NUR ---
Nutrition Followup Notes Wt 107.2 kg Pt in intubated sedated with no family by bedside. pt is currently NPO with no new diet orders. pt had HD 01/15 per records Est energy needs ABW 91 [id number] kcal (27-30 kcal/kg ABW), Est protein needs :109-127g (1.2-1.4g/kg ABW R/T HD) Will monitor and reassess prn. LABS: BUN 28 H CREAT 5.46 H CA 6.4 L BM: Pt has no BM recorded per RN note Skin: BS 13 mod risk, full details in career services manager note PES: Altered nutrition related lab values r.t current chronic medical condition aeb elev RFT hypocalcemia Decreased nutrient needs r/t adiposity aeb pt`s high BMI of 33.8 kgm2 Impaired swallowing r.t current medical condition aeb pt`s intubated NPO Comments: Will Continue to monitor NPO status, labs, skin. F/u high 2-3 days Rec: 1) advance diet as medically feasible. 2) consider EN support with Nephro carb steady @ 50 ml/hr per MD approval. 3) refer to [employer] dietitian on DC. 4) continue current plan of care
[2020-01-17] MEDS: hydrALAZINE HCL 20 MG/ML VL IV PRN ×2 (12:09→17:59)
[2020-01-17] MEDS: NOREPINEPHRINE 8 MG/250ML KIT 250 ML IV SCH (12:55)
--- NOTE | 2020-01-17 14:05 | NUR ---
Neuro Patient remains intubated/ off sedation. Patient responsive to pain, not yet opening eyes or following commands. Awaiting patient to become more responsive for cpap trial.
--- NOTE | 2020-01-17 16:32 | NUR ---
ANURIC PATIENT THROUGHOUT ADMISSION HAS BEEN ANURIC. MD DEVYN LYMAN D/C'D TO REDUCE RISK OF INFECTION.
--- NOTE | 2020-01-17 17:09 | NUR ---
assessment Patient is a 39 year old male who is on a vent in ICU. Per patients sister Karina Flores prior to admission patient lived home with his father and was independent. Per Karina patient was found down unresponsive and family started CPR and 911 was called. I informed Karina i will continue to monitor patients chart for any post discharge needs once patient is extubated. Karina verbalized understanding. Addendum: 01/17/20 at 1712 by Alexa BROWN Amended: Links added.
--- NOTE | 2020-01-17 19:17 | NUR ---
START OF SHIFT REPORT PATIENT RECEIVED IN BED. PATIENT OFF SEDATION BUT NOT RESPONDING TO VOICE OR FOLLOWING COMMANDS. PATIENT WITHDRAWS TO PAIN. PATIENT ON VENT, AC, TOLERATING VENT WELL. VITAL SIGS STABLE. PATIENT ON BEDSIDE MONITOR. PATIENT OFF PRESSORS. PATIENT WITH OG TO LIS. LYMAN REMOVED DURING DAY SHIFT. SAFETY MAINTAINED. WILL CONTINUE OT MONITOR.
[2020-01-18] VITALS (57 sets, daily range): BP systolic 128–182; BP diastolic 76–107
[2020-01-18] MEDS: ACCU-CHEK COMFORT CURVE STRIP VI SCH ×6 (00:09→20:00)
[2020-01-18] MEDS: hydrALAZINE HCL 20 MG/ML VL IV PRN ×3 (01:07→16:38)
[2020-01-18] MEDS: SODIUM CHLORIDE 0.9% 1,000 ML IV SCH ×2 (02:08→18:00)
[2020-01-18 04:07] LABS: Basophils # (auto) 0.1 10 ^3/uL (0-0.2); Basophils % (auto) 0.9 % (0.0-2.0); Eosinophils # (auto) 0.5 10 ^3/uL (0-0.8); Eosinophils % (auto) 7.8 % (0.0-7.0); Hematocrit 34.8 % (41.0-53.0); Hemoglobin 11.3 g/dL (13.5-17.5); Lymphocytes # (auto) 0.7 10 ^3/uL (0.4-5.4); Lymphocytes % (auto) 11.5 % (10.0-50.0); Mean Corpuscular Hemoglobin 31.6 pg (28.0-32.0); Mean Corpuscular Hgb Conc. 32.5 g/dL (32.0-36.0); Mean Corpuscular Volume 97.3 fL (80.0-100.0); Monocytes # (auto) 0.5 10 ^3/uL (0-1.3); Monocytes % (auto) 8.8 % (0.0-12.0); Neutrophils # (auto) 4.2 10 ^3/uL (1.6-8.6); Nucleated Red Blood Cells % 0.1 %; Platelet Count (auto) 223 10^3/uL (140-450); Red Blood Cells 3.58 10^6/uL (4.5-5.90)
[2020-01-18 05:21] LABS: Potassium 3.9 mmol/L (3.5-5.1)
[2020-01-18] MEDS ORDERED: SODIUM CHL 0.9% 1000 ML BAG XX ONE (07:00)
[2020-01-18] MEDS ORDERED: cefTRIAXone 1GM/50ML D5W 50 ML IV SCH (09:00)
--- NOTE | 2020-01-18 09:40 | NUR ---
FAMILY Received phone call from patients sister Karina, confirmed password, and updated on patient condition and plan of care. Will continue to monitor patient closely.
[2020-01-18] MEDS: PANTOPRAZOLE 40 MG/10 ML VIAL INJ IV SCH ×2 (09:57→21:19)
--- NOTE | 2020-01-18 10:25 | NUR ---
BLOOD PRESSURE Patients blood pressure increased to 175/95; Medication given per MD orders. Will continue to monitor patient closely.
--- NOTE | 2020-01-18 12:30 | NUR ---
DIALYSIS Per Bela LEHMAN, dialysis nurse, started to hemodialysis at this time.
[2020-01-18] MEDS: MIDAZOLAM DRIP 50 mg/50mL 50 ML IV SCH (12:45)
--- NOTE | 2020-01-18 12:55 | NUR ---
MD Dr. Ge at bedside updated on patient condition with new orders. MD gave new orders: this RN to input into system and will implement orders per MD. Will continue to monitor closely.
[2020-01-18] MEDS: PROPOFOL 100 ML IV SCH (14:30)
[2020-01-18] MEDS ORDERED: ceFAZolin 1GM 2 GM in D5W 5% 100 ML IV ONE (14:51)
--- NOTE | 2020-01-18 15:05 | NUR ---
FAMILY Received phone call from patients sister Karina, confirmed password and updated on patient condition and plan of care. Will continue to monitor patient closely.
--- NOTE | 2020-01-18 15:35 | NUR ---
DIALYSIS Hemodialysis has finished and output of 3 liters. Patient tolerated well.
[2020-01-18] MEDS: DEXTROSE (50%) 50ML SYRG IV PRN (16:42)
--- NOTE | 2020-01-18 17:30 | NUR ---
BLOOD GLUCOSE Rechecked blood glucose 110. Will continue to monitor patient closely for sign/symptoms of hypoglycemia.
[2020-01-18] MEDS: NOREPINEPHRINE 8 MG/250ML KIT 250 ML IV SCH (19:45)
--- NOTE | 2020-01-18 20:35 | NUR ---
RECEIVED A CALL FROM MEHRDAD(SISTER) UPDATED ON PT'S STATUS AND POC, ALL QUESTIONS AND CONCERNS WERE ADDRESSED, VERBALIZED UNDERSTANDING. SHE SAID SHE WILL CALL AGAIN YESSICA.
[2020-01-18] MEDS ORDERED: EPOETIN ALFA 4,000 UNIT/ML VL SC ONE (21:00)
[2020-01-19] VITALS (35 sets, daily range): BP systolic 129–173; BP diastolic 63–103
--- NOTE | 2020-01-19 03:30 | NUR ---
HYGIENE PARTIAL BATH DONE, LINENS AND GOWN CHANGED. REPOSITIONED FOR COMFORT
[2020-01-19 03:55] LABS: Basophils # (auto) 0.1 10 ^3/uL (0-0.2); Basophils % (auto) 1.1 % (0.0-2.0); Eosinophils # (auto) 0.5 10 ^3/uL (0-0.8); Eosinophils % (auto) 7.5 % (0.0-7.0); Lymphocytes # (auto) 0.7 10 ^3/uL (0.4-5.4); Lymphocytes % (auto) 10.7 % (10.0-50.0); Mean Corpuscular Hemoglobin 31.9 pg (28.0-32.0); Mean Corpuscular Hgb Conc. 32.5 g/dL (32.0-36.0); Mean Corpuscular Volume 97.9 fL (80.0-100.0); Monocytes # (auto) 0.6 10 ^3/uL (0-1.3); Monocytes % (auto) 9.4 % (0.0-12.0); Neutrophils # (auto) 4.4 10 ^3/uL (1.6-8.6); Neutrophils % (auto) 71.3 % (37.0-80.0); Nucleated Red Blood Cells % 0.2 %; Platelet Count (auto) 217 10^3/uL (140-450); Red Blood Cells 3.47 10^6/uL (4.5-5.90); Red Cell Distribution Width 17.4 % (11.8-14.3); White Blood Cell 6.2 10^3/uL (4.4-10.8)
[2020-01-19] MEDS: ACCU-CHEK COMFORT CURVE STRIP VI SCH ×6 (04:00→20:11)
[2020-01-19 04:17] LABS: Albumin 1.5 g/dL (3.4-5.0); Calcium 7.6 mg/dL (8.5-10.1)
[2020-01-19 04:20] LABS: BUN/Creatinine Ratio 4.2; Bilirubin, Total 0.8 mg/dL (0.2-1.0); Total Protein 6.8 g/dL (6.4-8.2)
[2020-01-19] MEDS: SODIUM CHLORIDE 0.9% 1,000 ML IV SCH (04:43)
--- NOTE | 2020-01-19 05:11 | NUR ---
Family updated on pt status Family of ERNESTINA MOSS updated on patient's status and condition. All questions and concerns addressed, verbalized understanding.
[2020-01-19] MEDS: hydrALAZINE HCL 20 MG/ML VL IV PRN ×3 (06:56→23:00)
--- NOTE | 2020-01-19 08:00 | NUR ---
ASSESSMENT COMPLETED - SEE FLOW SHEET. REPOSITIONED WITH ORAL CARE GIVEN.
--- NOTE | 2020-01-19 08:39 | NUR ---
DR BATES VISITS AND EXAMINES PATIENT - NO NEW ORDERS AT PRESENT.
[2020-01-19] MEDS ORDERED: D5W 5% IV SCH (10:00)
[2020-01-19] MEDS ORDERED: CEFAZOLIN IV SCH (10:00)
--- NOTE | 2020-01-19 11:00 | NUR ---
PATIENT'S SISTER MEHRDAD FRASER - UPDATED ON PATIENT CONDITION - VERBALIZED UNDERSTANDING. ALSO OBTAINED CONSENT FOR CENTRAL LINE PLACEMENT - DR SHAH NOTIFIED. Addendum: 01/19/20 at 1307 by Bre Galicia RN ERROR- WRONG PATIENT - CONSENT NOT SIGNED FOR PLACEMENT OF CENTRAL LINE.
[2020-01-19] MEDS: MIDAZOLAM DRIP 50 mg/50mL 50 ML IV SCH (12:25)
[2020-01-19] MEDS: PANTOPRAZOLE 40 MG/10 ML VIAL INJ IV SCH ×2 (12:25→21:57)
[2020-01-19] MEDS: ceFAZolin 1GM/50ML 50 ML IV SCH (12:26)
[2020-01-19] MEDS: PROPOFOL 100 ML IV SCH (12:27)
[2020-01-19] MEDS: DEXTROSE (50%) 50ML SYRG IV PRN (12:41)
[2020-01-19] MEDS ORDERED: DEXTROSE (50%) 50ML SYRG IV PRN (12:45)
[2020-01-19] MEDS: D5W/SOD CHLO 0.9% 1,000 ML IV SCH ×2 (12:45→23:01)
--- NOTE | 2020-01-19 12:57 | NUR ---
DR BATES NOTITIFED OF BS 55 - ORDERS RECEIVED. D50% 1 AMP GIVEN IVP. WILL RE-CHECK BS.
--- NOTE | 2020-01-19 13:08 | NUR ---
PATIENT BITING ETT AND STARTING TO OPEN EYES - RT NOTIFIED AND PLACED BITE BLOCK.
--- NOTE | 2020-01-19 14:47 | NUR ---
HIGH BP BP OF 178/100. ADMINISTERED APRESOLINE 10 MG IV PER MD ORDER. CONTINUE TO MONITOR.
--- NOTE | 2020-01-19 15:05 | NUR ---
BP OF 148/90 AFTER HYDRALAZINE DOSE.
--- NOTE | 2020-01-19 15:36 | NUR ---
DR CLINE CONTACTED PER PHARMACY REQUEST RE: EPOGEN - STATES TO HOLD DOSE FROM YESTERDAY AND RESUME TOMORROW AFTER HD - PHARMACY NOTIFIED.
--- NOTE | 2020-01-19 15:50 | NUR ---
DR VALERIO VISITS AND UPDATED ON PATIENT STATUS - NO NEW ORDERS RECEIVED.
--- NOTE | 2020-01-19 15:54 | NUR ---
Nutrition Followup Notes Wt 103.4 kg Pt in intubated off sedation, starting to wake up with no family by bedside. Pt is currently NPO with no new diet orders. Pt had HD 01/18 per records Est energy needs ABW 91 [id number] kcal (27-30 kcal/kg ABW), Est protein needs :109-127g (1.2-1.4g/kg ABW R/T HD) Will monitor and reassess prn. LABS: BUN 26 H, CREAT 6.14 H, GLUC 127 H, CA 7.6 L, ALB 1.5 L BM: Pt has no BM recorded per RN note Skin: BS 12 high risk, full details in acute care nurse note PES: Altered nutrition related lab values r.t current chronic medical condition aeb elev RFT hypocalcemia Decreased nutrient needs r/t adiposity aeb pt`s high BMI of 33.8 kgm2 Impaired swallowing r.t current medical condition aeb pt`s intubated NPO Comments: Will Continue to monitor NPO status, labs, skin. F/u high 2-3 days Rec: 1) advance diet as medically feasible. 2) consider EN support with Nephro carb steady @ 50 ml/hr per MD approval. 3) refer to [employer] dietitian on DC. 4) continue current plan of care
[2020-01-19] MEDS: InsuLIN REG 1unit/0.01ml Soln (100units/ml) SC SCH ×2 (16:00→20:00)
--- NOTE | 2020-01-19 16:30 | NUR ---
PATIENT NOTED TO HAVE EYES OPEN. DOES NOT FOLLOW COMMANDS. CONTINUES TO WITHDRAW ALL EXTREMITIES TO PAINFUL STIMULI. PERRLA 3MM AND SLUGGISH.
--- NOTE | 2020-01-19 18:11 | NUR ---
RECEIVED PT ON VENT ([id number]). VENT CONNECTED TO RED OUTLET AND O2 WALL SOURCE. ALARMS ARE SET AND AUDIBLE. AMBU BAG AND MASK AT BEDSIDE. BS ARE FINE COURSE T/O, SXD VIA ETT FOR SCANT CLEAR/PINK TINGE. GAG NOTED, NO CHANGES MADE. PTS CURRENT TEMP READS 98.4F. WILL CONTINUE TO MONITOR.
[2020-01-19] MEDS: NOREPINEPHRINE 8 MG/250ML KIT 250 ML IV SCH (19:45)
--- NOTE | 2020-01-19 19:53 | NUR ---
AT BEDSIDE FOR ROUTINE VENT CHECK NO CHANGES MADE. CURRENT TEMP READS 99.1F, WILL CONTINUE TO MONITOR.
--- NOTE | 2020-01-19 21:29 | NUR ---
Family updated on pt status Family of ERNESTINA MOSS, sister called, updated on patient's status and condition. All questions and concerns addressed. verbalized understanding.
--- NOTE | 2020-01-19 21:34 | NUR ---
AT BEDSIDE FOR ROUTINE VENT CHECK. NO CHANGES MADE. CURRENT TEMP READS 99.3F, WILL CONTINUE TO MONITOR.
[2020-01-20] VITALS (74 sets, daily range): BP systolic 112–187; BP diastolic 62–110
--- NOTE | 2020-01-20 00:11 | NUR ---
Respiratory note: AT BEDSIDE FOR ROUTINE VENT CHECK. SXD VIA ETT FOR SMALL COOPER SECRETIONS. NO VENT CHANGES MADE. WILL CONTINUE TO MONITOR.
--- NOTE | 2020-01-20 01:15 | NUR ---
Wound care Cleansed wound in the left foot and covered with gauze
--- NOTE | 2020-01-20 01:22 | NUR ---
Patient bathe/linen change Patient given partial bath w/CHG, Skin integrity assessed for any changes. Linens changed. Patient repositioned for comfort.
[2020-01-20] MEDS: hydrALAZINE HCL 20 MG/ML VL IV PRN ×3 (03:18→23:59)
[2020-01-20] MEDS: InsuLIN REG 1unit/0.01ml Soln (100units/ml) SC SCH ×6 (04:00→20:00)
--- NOTE | 2020-01-20 04:06 | NUR ---
Pt's sister called, updates given, all questions and concerns were addressed. She is requesting to talk to the doctor. Will inform the day shift RN.
[2020-01-20] MEDS: ACCU-CHEK COMFORT CURVE STRIP VI SCH ×6 (04:09→20:00)
--- NOTE | 2020-01-20 04:19 | NUR ---
MD escalante Hospitalist Mathieu Galaviz called back, updated on pt's status and increased BP, ordered to continue POM, nifedipine and metoprolol as directed
[2020-01-20] MEDS ORDERED: NIFEdipine 10 MG CAP NG ONE (04:30)
[2020-01-20 04:56] LABS: Basophils # (auto) 0 10 ^3/uL (0-0.2); Basophils % (auto) 0.7 % (0.0-2.0); Eosinophils # (auto) 0.4 10 ^3/uL (0-0.8); Eosinophils % (auto) 5.8 % (0.0-7.0); Hemoglobin 11.1 g/dL (13.5-17.5); Lymphocytes # (auto) 0.6 10 ^3/uL (0.4-5.4); Lymphocytes % (auto) 8.7 % (10.0-50.0); Mean Corpuscular Hemoglobin 31.4 pg (28.0-32.0); Mean Corpuscular Hgb Conc. 31.8 g/dL (32.0-36.0); Mean Corpuscular Volume 98.7 fL (80.0-100.0); Monocytes # (auto) 0.6 10 ^3/uL (0-1.3); Monocytes % (auto) 9.2 % (0.0-12.0); Neutrophils # (auto) 5.2 10 ^3/uL (1.6-8.6); Neutrophils % (auto) 75.6 % (37.0-80.0); Nucleated Red Blood Cells % 0.2 %; Platelet Count (auto) 257 10^3/uL (140-450); Red Blood Cells 3.54 10^6/uL (4.5-5.90); Red Cell Distribution Width 17.2 % (11.8-14.3); White Blood Cell 6.9 10^3/uL (4.4-10.8)
[2020-01-20 05:15] LABS: Alanine Aminotransferase < 6 U/L (16-61); Albumin 1.6 g/dL (3.4-5.0); Anion Gap 10 (5-15); Aspartate Aminotransferase 22 U/L (15-37); BUN/Creatinine Ratio 4.6; Blood Urea Nitrogen 34 mg/dL (7-18); Calcium 7.4 mg/dL (8.5-10.1); Carbon Dioxide 28 mmol/L (21-32); Chloride 99 mmol/L (98-107); GFR African American 11 mL/min; GFR Non-African American 9 mL/min; Glucose 102 mg/dL (74-106); Potassium 3.8 mmol/L (3.5-5.1); Sodium 137 mmol/L (136-145)
[2020-01-20 05:17] LABS: Alkaline Phosphatase 114 U/L (45-117); Bilirubin, Total 0.7 mg/dL (0.2-1.0); Total Protein 7.1 g/dL (6.4-8.2)
--- NOTE | 2020-01-20 05:45 | NUR ---
meds Nifedipine started as ordered, BP 167/103
--- NOTE | 2020-01-20 06:43 | NUR ---
BP rechecked 149/88
[2020-01-20] MEDS ORDERED: SODIUM CHL 0.9% 1000 ML BAG XX ONE (07:00)
--- NOTE | 2020-01-20 08:00 | NUR ---
PT REMAIN ON A VENT, NO SEDATION AT THIS TIME. MOVES ALL EXTREMITIES AND RESPONDS TO PAINFUL STIMULI . UNABLE TO FOLLOW ANY COMMAND. WILL CONTINUE TO MONITOR .
[2020-01-20] MEDS: D5W/SOD CHLO 0.9% 1,000 ML IV SCH (08:58)
[2020-01-20] MEDS: PANTOPRAZOLE 40 MG/10 ML VIAL INJ IV SCH ×2 (10:00→21:44)
[2020-01-20] MEDS ORDERED: NIFEdipine 10 MG CAP NG SCH (10:00)
[2020-01-20] MEDS: METOPROLOL TARTRATE 25 MG TAB NG SCH ×2 (10:00→21:44)
[2020-01-20] MEDS: ceFAZolin 1GM/50ML 50 ML IV SCH (10:00)
[2020-01-20] MEDS: MIDAZOLAM DRIP 50 mg/50mL 50 ML IV SCH (12:45)
--- NOTE | 2020-01-20 13:02 | NUR ---
Patient had large liquid bowel movement. [place] bed bath and partial bedding change. Oral care, patient repositioned.
[2020-01-20] MEDS: PROPOFOL 100 ML IV SCH (14:30)
[2020-01-20] MEDS: LABETALOL HCL 5 MG/ML 4ML SYRINGE IV PRN (16:50)
--- NOTE | 2020-01-20 17:30 | NUR ---
Patient bathe/linen change Patient given complete bath. Skin integrity assessed for any changes. Linens changed. Patient repositioned for comfort.
--- NOTE | 2020-01-20 18:25 | NUR ---
PT HAD A LARGE AMOUNT OF SOLID STOOL. CLEANED AND REPOSITIONED.
--- NOTE | 2020-01-20 19:00 | NUR ---
REPORT GIVEN TO DOMINIK GARCÍA.
[2020-01-20] MEDS: NOREPINEPHRINE 8 MG/250ML KIT 250 ML IV SCH (19:45)
[2020-01-21] VITALS (62 sets, daily range): BP systolic 117–181; BP diastolic 67–99
[2020-01-21] MEDS: ACCU-CHEK COMFORT CURVE STRIP VI SCH ×7 (00:11→23:45)
[2020-01-21] MEDS: InsuLIN REG 1unit/0.01ml Soln (100units/ml) SC SCH ×7 (04:00→23:48)
[2020-01-21] MEDS: hydrALAZINE HCL 20 MG/ML VL IV PRN ×4 (04:17→23:43)
--- NOTE | 2020-01-21 07:15 | NUR ---
OPENING NOTE RECEIVED REPORT FROM SLED MAKER RN. PATIENT INTUBATED AND SEDATED ON PRECEDEX. TOLERATING VENTILATOR. SR 85 BP 159/81 ON NO PRESSURE MEDICATIONS. RIGHT FEMORAL TLC PATENT AND TRANSFUSING ALL MEDICATIONS. FOR GTTS AND THEIR TITRATIONS SEE IV SPREAD SHEET. AWAITING PATIENT TO WAKE UP MORE/FOLLOW COMMANDS FOR CPAP TRIAL. OGT PATENT. RIGHT FOREARM AVF CLEAN, PALPATED THRILL AND AUSCULTATED BRUITS. BED LOCKED AND IN LOWEST POSITION. REPOSITION PATIENT FOR COMFORT.
--- NOTE | 2020-01-21 07:53 | NUR ---
MD BATES AT BED SIDE UPDATED ON PATIENT STATUS
[2020-01-21] MEDS: METOPROLOL TARTRATE 25 MG TAB NG SCH ×2 (09:27→22:31)
[2020-01-21] MEDS: ceFAZolin 1GM/50ML 50 ML IV SCH (09:27)
[2020-01-21] MEDS: amLODIPine BESYLATE 5 MG TAB PO SCH (09:28)
[2020-01-21] MEDS: PANTOPRAZOLE 40 MG/10 ML VIAL INJ IV SCH ×2 (09:28→22:30)
--- NOTE | 2020-01-21 09:50 | NUR ---
Respiratory note: ROUTINE VENT CHECK DONE. NO VENT CHANGES MADE AT THIS TIME. PT IS NOT AWAKE OR ALERT ENOUGH FOR CPAP TRIAL YET. WILL CONTINUE TO MONITOR PT. RN NOTIFIED.
[2020-01-21] MEDS ORDERED: NIFEdipine 10 MG CAP NG SCH (10:00)
--- NOTE | 2020-01-21 10:30 | NUR ---
Nutrition Followup Notes Wt 106.2 kg Pt in intubated off sedation, sleeping with no family by bedside. Pt failed CPAP trial, is currently NPO since 01/14 with no new diet orders. Pt had HD 01/19 per records. Refer to nutrition support recommendations noted below under Comments. Est energy needs ABW 91 [id number] kcal (27-30 kcal/kg ABW), Est protein needs :109-127g (1.2-1.4g/kg ABW R/T HD) Will monitor and reassess prn. LABS: BUN 34 H, CREAT 7.36 H, CA 7.4 L, ALB 1.6 L BM: Pt had 2 BMs on 01/19 per RN note Skin: BS 12 high risk, full details in rn progressive care note PES: Altered nutrition related lab values r.t current chronic medical condition aeb elev RFT hypocalcemia Decreased nutrient needs r/t adiposity aeb pt`s high BMI of 33.8 kgm2 Impaired swallowing r.t current medical condition aeb pt`s intubated NPO Comments: Will Continue to monitor NPO status, labs, skin. F/u high 2-3 days Rec: 1) advance diet as medically feasible. 2) consider EN support with Nephro carb steady @ 50 ml/hr per MD approval. 3) refer to [employer] dietitian on DC. 4) continue current plan of care
--- NOTE | 2020-01-21 10:32 | NUR ---
RECEIVED PHONE CALL FROM FAMILY VERIFIED PASSWORD, UPDATED ON PATIENT STATUS. ALL QUESTIONS ADDRESSED AT THIS TIME.
[2020-01-21] MEDS: MIDAZOLAM DRIP 50 mg/50mL 50 ML IV SCH (12:45)
[2020-01-21] MEDS: PROPOFOL 100 ML IV SCH (13:34)
[2020-01-21] MEDS: LABETALOL HCL 5 MG/ML 4ML SYRINGE IV PRN ×2 (15:30→22:55)
[2020-01-21] MEDS: NOREPINEPHRINE 8 MG/250ML KIT 250 ML IV SCH (19:45)
[2020-01-22] VITALS (32 sets, daily range): BP systolic 107–185; BP diastolic 65–103
[2020-01-22] MEDS: ACCU-CHEK COMFORT CURVE STRIP VI SCH ×5 (03:57→20:00)
[2020-01-22] MEDS: InsuLIN REG 1unit/0.01ml Soln (100units/ml) SC SCH ×5 (03:57→21:04)
--- NOTE | 2020-01-22 04:00 | NUR ---
Patient bathe/linen change Patient given complete bath chlorhexidine wipes. Skin integrity assessed for any changes. Linens changed. Patient repositioned for comfort.
--- NOTE | 2020-01-22 05:30 | NUR ---
family received phone call from patient's sister. password confirmed. updates given.
[2020-01-22] MEDS: LABETALOL HCL 5 MG/ML 4ML SYRINGE IV PRN ×2 (06:37→15:33)
[2020-01-22 10:15] LABS: Basophils # (auto) 0.1 10 ^3/uL (0-0.2); Basophils % (auto) 1.3 % (0.0-2.0); Eosinophils # (auto) 0.5 10 ^3/uL (0-0.8); Eosinophils % (auto) 8.2 % (0.0-7.0); Hematocrit 33.2 % (41.0-53.0); Hemoglobin 10.8 g/dL (13.5-17.5); Lymphocytes # (auto) 0.6 10 ^3/uL (0.4-5.4); Lymphocytes % (auto) 11.2 % (10.0-50.0); Mean Corpuscular Hemoglobin 31.9 pg (28.0-32.0); Mean Corpuscular Hgb Conc. 32.6 g/dL (32.0-36.0); Mean Corpuscular Volume 97.8 fL (80.0-100.0); Monocytes # (auto) 0.5 10 ^3/uL (0-1.3); Monocytes % (auto) 9.1 % (0.0-12.0); Neutrophils # (auto) 3.9 10 ^3/uL (1.6-8.6); Neutrophils % (auto) 70.2 % (37.0-80.0); Platelet Count (auto) 330 10^3/uL (140-450); Red Blood Cells 3.39 10^6/uL (4.5-5.90); Red Cell Distribution Width 17.4 % (11.8-14.3); White Blood Cell 5.5 10^3/uL (4.4-10.8)
[2020-01-22] MEDS: PANTOPRAZOLE 40 MG/10 ML VIAL INJ IV SCH ×2 (10:18→22:00)
[2020-01-22] MEDS: ceFAZolin 1GM/50ML 50 ML IV SCH (10:18)
[2020-01-22] MEDS: METOPROLOL TARTRATE 25 MG TAB NG SCH ×2 (10:18→22:00)
[2020-01-22] MEDS: amLODIPine BESYLATE 5 MG TAB PO SCH (10:19)
[2020-01-22 10:36] LABS: BUN/Creatinine Ratio 4.4; Calcium 7.6 mg/dL (8.5-10.1); Potassium 4.4 mmol/L (3.5-5.1)
--- NOTE | 2020-01-22 11:26 | NUR ---
Family Received phone call from family, correct password verified. All questions and concerns addressed at this time.
--- NOTE | 2020-01-22 11:32 | NUR ---
WOUND CARE NOTE: WOUND CARE IN TO SEE PATIENT FOR REEVALUATION. PATIENT REMAINS ON ICU LOW AIR-LOSS BED. PATIENT'S LEFT FOOT DFU REMAINS INTACT/DRY/HYPERKERATOTIC. LEFT OPEN TO AIR. BEDSIDE NURSE ADVISED THAT PATIENT'S SACRAL AREA HAS DEVELOPED INTO A DTI. PHOTOGRAPH TAKEN AT THIS TIME FOR REFERENCE. ZGUARD AND OPTIFOAM GENTLE SACRAL DRESSING APPLIED. RECOMMENDATION: FREQUENT Q2HOUR REPOSITIONING CONDITION PERMITS. REDISTRIBUTE PRESSURE UTILIZING PILLOWS AND WEDGES. BID/PRN DRESSING CHANGE TO SACRUM. CONTINUE SKIN/WOUND CARE PLAN. CONTINUED MONITORING BY WOUND CARE TEAM. Addendum: 01/22/20 at 1605 by MARIANNE CHESTER RN RN Amended: Links added.
[2020-01-22] MEDS: MIDAZOLAM DRIP 50 mg/50mL 50 ML IV SCH (12:45)
[2020-01-22] MEDS: PROPOFOL 100 ML IV SCH (14:30)
--- NOTE | 2020-01-22 14:40 | NUR ---
RT NOTE PT TRANSPORTED TO CATH WITHOUT INCIDENT. PT OXYGENATED/VENTILATED BY RT VIA AMBU BAG. PT PLACED BACK ON DR ORDERED VENT SETTINGS ON VENT ADQ 0236, PLUGGED INTO A RED OUTLET AND PROPER O2 SOURCE. RN AT BEDSIDE. AMBU BAG AT BEDSIDE. WILL CONTINUE TO MONITOR ORDERED.
--- NOTE | 2020-01-22 15:33 | NUR ---
HTN pt b/p 185/103. PRN labetolol given at this time per MD order.
--- NOTE | 2020-01-22 19:45 | NUR ---
REPORT GIVEN TO NIGHTSHIFT RN TO ASSUME CARE
[2020-01-22] MEDS: hydrALAZINE HCL 20 MG/ML VL IV PRN (23:52)
[2020-01-23] VITALS (32 sets, daily range): BP systolic 122–182; BP diastolic 73–105
[2020-01-23] MEDS: hydrALAZINE HCL 20 MG/ML VL IV PRN ×4 (03:33→23:31)
[2020-01-23] MEDS: NOREPINEPHRINE 8 MG/250ML KIT 250 ML IV SCH ×2 (04:28→19:45)
[2020-01-23] MEDS: ACCU-CHEK COMFORT CURVE STRIP VI SCH ×7 (04:29→23:31)
[2020-01-23] MEDS: InsuLIN REG 1unit/0.01ml Soln (100units/ml) SC SCH ×7 (04:30→23:31)
[2020-01-23 04:52] LABS: Basophils # (auto) 0.1 10 ^3/uL (0-0.2); Basophils % (auto) 1.7 % (0.0-2.0); Eosinophils # (auto) 0.6 10 ^3/uL (0-0.8); Eosinophils % (auto) 9.8 % (0.0-7.0); Hematocrit 34.3 % (41.0-53.0); Hemoglobin 10.7 g/dL (13.5-17.5); Lymphocytes # (auto) 0.7 10 ^3/uL (0.4-5.4); Lymphocytes % (auto) 12.2 % (10.0-50.0); Mean Corpuscular Hemoglobin 30.6 pg (28.0-32.0); Mean Corpuscular Hgb Conc. 31.3 g/dL (32.0-36.0); Mean Corpuscular Volume 97.9 fL (80.0-100.0); Monocytes # (auto) 0.5 10 ^3/uL (0-1.3); Monocytes % (auto) 8.5 % (0.0-12.0); Neutrophils # (auto) 3.8 10 ^3/uL (1.6-8.6); Neutrophils % (auto) 67.8 % (37.0-80.0); Nucleated Red Blood Cells % 0.1 %; Platelet Count (auto) 376 10^3/uL (140-450); White Blood Cell 5.6 10^3/uL (4.4-10.8)
[2020-01-23 05:18] LABS: Potassium 4.6 mmol/L (3.5-5.1)
[2020-01-23 05:22] LABS: BUN/Creatinine Ratio 4.9; Calcium 7.3 mg/dL (8.5-10.1)
--- NOTE | 2020-01-23 06:40 | NUR ---
Respiratory note: RECEIVED PATIENT ON RENTAL V200 ESPRIT VENT ORALLY INTUBATED WITH AN 8.0 ETT SECURED VIA CHAI AT THE 24CM MARKING AT THE LIP, AND MECHANICALLY VENTILATED WITH THE CHARTED SETTINGS. SPO2 99%, LUNG SOUNDS CLEAR/DIM T/O, SCANT AMOUNT OF THICK CLEAR SECRETIONS WHEN SUCTIONED. SKIN IS WARM/DRY TO THE TOUCH AND IS INTACT NEAR CHAI SITE. THERE IS AN OGT IN PLACE AND SECURED TO THE ETT. THERE IS PITTING EDEMA NOTED IN BILATERAL UPPER AND LOWER EXTREMITIES. NO NEW AM CXR TO ASSESS. PATIENT IS OFF ALL SEDATION AND IS UNRESPONSIVE TO STIMULI. HE IS RESTING COMFORTABLY AND TOLERATING VENT WELL, NO CHANGES MADE. VENT PLUGGED INTO RED OUTLET AND ALL ALARMS ARE SET AND AUDIBLE. WILL CONTINUE TO ASSESS PATIENT WELL VENTILATOR FUNCTION.
[2020-01-23] MEDS ORDERED: SODIUM CHL 0.9% 1000 ML BAG XX ONE (07:00)
--- NOTE | 2020-01-23 08:20 | NUR ---
DIALYSIS Dialysis nurse Adeola at bedside and started patient on hemodialysis.
--- NOTE | 2020-01-23 08:50 | NUR ---
FAMILY Received phone call from patients sister Karina, confirmed password and updated on patient condition and plan of care.
--- NOTE | 2020-01-23 10:15 | NUR ---
MD Dr. Ortega at bedside updated on patient condition and plan of care with no new orders obtained at this time.
[2020-01-23] MEDS: PANTOPRAZOLE 40 MG/10 ML VIAL INJ IV SCH ×2 (10:24→21:23)
[2020-01-23] MEDS: amLODIPine BESYLATE 5 MG TAB PO SCH (10:24)
[2020-01-23] MEDS: ceFAZolin 1GM/50ML 50 ML IV SCH (10:24)
[2020-01-23] MEDS: METOPROLOL TARTRATE 25 MG TAB NG SCH ×2 (10:25→21:23)
--- NOTE | 2020-01-23 11:20 | NUR ---
DIALYSIS Dialysis nurse Adeola has finished hemodialysis with 3 liters output. Patient tolerated well with no incident. Will continue to monitor patient.
--- NOTE | 2020-01-23 12:00 | NUR ---
MD Dr. Salvador at bedside updated on patient condition and plan of care with no new orders obtained.
[2020-01-23] MEDS: MIDAZOLAM DRIP 50 mg/50mL 50 ML IV SCH (12:45)
[2020-01-23] MEDS: PROPOFOL 100 ML IV SCH (14:30)
--- NOTE | 2020-01-23 14:52 | NUR ---
Nutrition Followup Notes Wt 101.0 kg Pt in intubated off sedation, sleeping with no family by bedside. Pt failed CPAP trial, is currently NPO since 01/14 with no new diet orders. Pt with HD today when rounded. Per RN, waiting for pt to wake up to try CPAP trial again. Alerted RN that pt has been NPO since 01/14, and nutrition support should be considered if pt fails CPAP trial. Est energy needs ABW 91 [id number] kcal (27-30 kcal/kg ABW), Est protein needs :109-127g (1.2-1.4g/kg ABW R/T HD) Will monitor and reassess prn. LABS: BUN 44 H, CREAT 9.0 H, CA 7.3 L, ALB 1.6 L BM: Pt had 1 BM on 01/21 per RN note Skin: BS 11 high risk, full details in pediatric care coordinator note PES: Altered nutrition related lab values r.t current chronic medical condition aeb elev RFT hypocalcemia Decreased nutrient needs r/t adiposity aeb pt`s high BMI of 33.8 kgm2 Impaired swallowing r.t current medical condition aeb pt`s intubated NPO Comments: Will Continue to monitor NPO status, labs, skin. F/u high 2-3 days Rec: 1) advance diet as medically feasible. 2) consider EN support with Nephro carb steady @ 50 ml/hr per MD approval. 3) refer to [employer] dietitian on DC. 4) continue current plan of care
--- NOTE | 2020-01-23 15:45 | NUR ---
MD Dr. Avendaño at bedside updated on patient condition with no new orders. Aware that Dr. Salvador is requesting EEG.
[2020-01-24] VITALS (32 sets, daily range): BP systolic 128–198; BP diastolic 72–101
[2020-01-24] MEDS: InsuLIN REG 1unit/0.01ml Soln (100units/ml) SC SCH ×5 (04:00→20:00)
[2020-01-24 04:15] LABS: Basophils # (auto) 0.1 10 ^3/uL (0-0.2); Basophils % (auto) 1.3 % (0.0-2.0); Eosinophils # (auto) 0.5 10 ^3/uL (0-0.8); Eosinophils % (auto) 6.6 % (0.0-7.0); Hematocrit 37.4 % (41.0-53.0); Lymphocytes # (auto) 0.7 10 ^3/uL (0.4-5.4); Lymphocytes % (auto) 9.3 % (10.0-50.0); Mean Corpuscular Hemoglobin 31.1 pg (28.0-32.0); Mean Corpuscular Volume 97.4 fL (80.0-100.0); Monocytes # (auto) 0.6 10 ^3/uL (0-1.3); Monocytes % (auto) 7.8 % (0.0-12.0); Platelet Count (auto) 411 10^3/uL (140-450); Red Blood Cells 3.84 10^6/uL (4.5-5.90)
[2020-01-24 04:31] LABS: BUN/Creatinine Ratio 4.2
[2020-01-24 04:39] LABS: Calcium 7.5 mg/dL (8.5-10.1)
[2020-01-24] MEDS: ACCU-CHEK COMFORT CURVE STRIP VI SCH ×5 (04:40→20:00)
[2020-01-24] MEDS: LABETALOL HCL 5 MG/ML 4ML SYRINGE IV PRN (04:47)
[2020-01-24] MEDS: hydrALAZINE HCL 20 MG/ML VL IV PRN ×2 (09:10→15:52)
[2020-01-24] MEDS: PANTOPRAZOLE 40 MG/10 ML VIAL INJ IV SCH ×2 (09:49→22:20)
[2020-01-24] MEDS: ceFAZolin 1GM/50ML 50 ML IV SCH (09:49)
[2020-01-24] MEDS: METOPROLOL TARTRATE 25 MG TAB NG SCH ×2 (09:50→22:20)
[2020-01-24] MEDS: amLODIPine BESYLATE 5 MG TAB PO SCH (09:51)
--- NOTE | 2020-01-24 10:30 | NUR ---
MD Dr. Lombardo at bedside updated on patient condition with new orders for EEG for ALOC. This RN to input into system. Will carry out order per MD.
--- NOTE | 2020-01-24 10:55 | NUR ---
FAMILY Received phone call from patients sister Karina, confirmed password and updated on patient condition and plan of care.
--- NOTE | 2020-01-24 11:25 | NUR ---
EEG glass technician/installer at bedside to obtain study per MD orders.
--- NOTE | 2020-01-24 12:00 | NUR ---
EEG COMPLETED AT BEDSIDE. PRIMARY RN MARY SHEPARD.
[2020-01-24] MEDS: MIDAZOLAM DRIP 50 mg/50mL 50 ML IV SCH (12:45)
[2020-01-24] MEDS: PROPOFOL 100 ML IV SCH (14:30)
[2020-01-24] MEDS: NOREPINEPHRINE 8 MG/250ML KIT 250 ML IV SCH (19:45)
[2020-01-25] VITALS (32 sets, daily range): BP systolic 137–196; BP diastolic 71–123
[2020-01-25] MEDS: ACCU-CHEK COMFORT CURVE STRIP VI SCH ×6 (04:00→20:00)
[2020-01-25] MEDS: InsuLIN REG 1unit/0.01ml Soln (100units/ml) SC SCH ×6 (04:00→20:00)
[2020-01-25 04:18] LABS: Basophils # (auto) 0.1 10 ^3/uL (0-0.2); Eosinophils # (auto) 0.5 10 ^3/uL (0-0.8); Hemoglobin 11.5 g/dL (13.5-17.5); Lymphocytes # (auto) 0.7 10 ^3/uL (0.4-5.4); Mean Corpuscular Hemoglobin 30.7 pg (28.0-32.0); Mean Corpuscular Hgb Conc. 31.3 g/dL (32.0-36.0)
[2020-01-25 04:20] LABS: Eosinophils % (auto) 7.4 % (0.0-7.0); Hematocrit 36.7 % (41.0-53.0); Lymphocytes % (auto) 9.8 % (10.0-50.0); Mean Corpuscular Volume 98.2 fL (80.0-100.0); Monocytes # (auto) 0.6 10 ^3/uL (0-1.3); Monocytes % (auto) 8.6 % (0.0-12.0); Neutrophils # (auto) 5.2 10 ^3/uL (1.6-8.6); Neutrophils % (auto) 72.2 % (37.0-80.0); Nucleated Red Blood Cells % 0.3 %; Platelet Count (auto) 457 10^3/uL (140-450); Red Blood Cells 3.74 10^6/uL (4.5-5.90); Red Cell Distribution Width 17.3 % (11.8-14.3); White Blood Cell 7.3 10^3/uL (4.4-10.8)
[2020-01-25 04:47] LABS: BUN/Creatinine Ratio 4.3; Calcium 7.7 mg/dL (8.5-10.1); Potassium 4.1 mmol/L (3.5-5.1)
[2020-01-25] MEDS: hydrALAZINE HCL 20 MG/ML VL IV PRN ×3 (07:00→22:26)
[2020-01-25] MEDS ORDERED: SODIUM CHL 0.9% 1000 ML BAG XX ONE (09:30)
[2020-01-25] MEDS: ceFAZolin 1GM/50ML 50 ML IV SCH (10:00)
[2020-01-25] MEDS: PANTOPRAZOLE 40 MG/10 ML VIAL INJ IV SCH ×2 (10:00→22:23)
[2020-01-25] MEDS: MIDAZOLAM DRIP 50 mg/50mL 50 ML IV SCH (12:45)
[2020-01-25] MEDS: METOPROLOL TARTRATE 25 MG TAB NG SCH ×2 (13:15→22:24)
[2020-01-25] MEDS: amLODIPine BESYLATE 5 MG TAB PO SCH (13:15)
--- NOTE | 2020-01-25 14:23 | NUR ---
Nutrition Followup Notes Wt 101.0 kg Pt in intubated off sedation, not yet awake. Pt repeatedly failed CPAP trial d/t mental status per MD note, is NPO since 01/14 with no new diet orders. Pt had HD today per RN. RN Gayatri called to obtain EN nutrition support recommendation. Recommended Nepro with CS 1.8 @ 60ml/hr goal rate. Est energy needs ABW 91 [id number] kcal (27-30 kcal/kg ABW), Est protein needs :109-127g (1.2-1.4g/kg ABW R/T HD) Will monitor and reassess prn. LABS: BUN 39 H, CREAT 9.12 H, CA 7.3 L, ALB 1.6 L BM: Pt had 1 BM on 01/21 per RN note Skin: BS 11 high risk, full details in primary care sales representative note PES: 1) Altered nutrition related lab values r.t current chronic medical condition aeb elev RFT hypocalcemia 2) Decreased nutrient needs r/t adiposity aeb pt`s high BMI of 33.8 kgm2 3) Impaired swallowing r.t current medical condition aeb pt`s intubated NPO Comments: Will Continue to monitor NPO status, labs, skin. F/u high 2-3 days Rec: 1) Advance diet as medically feasible. 2) Consider EN support with Nephro carb steady @ 60 ml/hr per MD approval. 3) Refer to [employer] dietitian on DC. 4) Continue current plan of care
[2020-01-25] MEDS: PROPOFOL 100 ML IV SCH (14:30)
[2020-01-25] MEDS ORDERED: Nepro With Carb Steady 1 Liter Bottle GT SCH (15:45)
--- NOTE | 2020-01-25 15:55 | NUR ---
PATIENT REMAINED INTUBATED AND HAD DIALYSIS AND PULLED 3 LITERS. PATIENT REMAINE TO HAVE HYPERTENSIVE ON OCCASSION, PATIENTUNRESPONSIVE DUE TO HIS INTUBATION AND HE DOESN'T FOLLOW ANY COMMANDS.
--- NOTE | 2020-01-25 19:08 | NUR ---
T8BE FEEDING NEPRO CARB STEADY STARTED AT 10CC/HR GOAL OF 60 CC.
[2020-01-25] MEDS: NOREPINEPHRINE 8 MG/250ML KIT 250 ML IV SCH (19:45)
[2020-01-26] VITALS (29 sets, daily range): BP systolic 137–188; BP diastolic 86–110
[2020-01-26] MEDS: METOPROLOL TARTRATE 25 MG TAB NG SCH ×2 (00:19→22:20)
[2020-01-26 03:15] LABS: Basophils # (auto) 0.1 10 ^3/uL (0-0.2); Basophils % (auto) 1.2 % (0.0-2.0); Eosinophils # (auto) 0.5 10 ^3/uL (0-0.8); Eosinophils % (auto) 5.7 % (0.0-7.0); Hematocrit 35.9 % (41.0-53.0); Hemoglobin 11.7 g/dL (13.5-17.5); Lymphocytes % (auto) 10.2 % (10.0-50.0); Mean Corpuscular Hemoglobin 31.7 pg (28.0-32.0); Mean Corpuscular Hgb Conc. 32.7 g/dL (32.0-36.0); Mean Corpuscular Volume 96.8 fL (80.0-100.0); Monocytes # (auto) 0.9 10 ^3/uL (0-1.3); Monocytes % (auto) 9.4 % (0.0-12.0); Neutrophils % (auto) 73.5 % (37.0-80.0); Nucleated Red Blood Cells % 0.1 %; Platelet Count (auto) 475 10^3/uL (140-450); Red Blood Cells 3.71 10^6/uL (4.5-5.90); White Blood Cell 9.5 10^3/uL (4.4-10.8)
[2020-01-26] MEDS: hydrALAZINE HCL 20 MG/ML VL IV PRN ×3 (03:17→21:28)
[2020-01-26 03:39] LABS: Calcium 7.5 mg/dL (8.5-10.1); Potassium 3.8 mmol/L (3.5-5.1)
[2020-01-26 03:41] LABS: BUN/Creatinine Ratio 3.5
[2020-01-26] MEDS: ACCU-CHEK COMFORT CURVE STRIP VI SCH ×6 (04:00→20:00)
[2020-01-26] MEDS: InsuLIN REG 1unit/0.01ml Soln (100units/ml) SC SCH ×6 (04:00→20:00)
--- NOTE | 2020-01-26 06:51 | NUR ---
UNEVENTFUL NIGHT ,PATIENT APPEARS TO REMAIN AWAKE MOST OF THE TIME, ERATICAL MOVEMENTS, NON PURPOSEFUL, NOT FOLLOWING VERBAL COMMANDS. HYPERTENSIVE NECESSITATING PRN's. TOLERATES WELL TF. FREQUENT BOWEL MOVEMENTS, AFEBRILE.
--- NOTE | 2020-01-26 08:00 | NUR ---
OPENING NOTE Received patient on mechanical ventilator, opens eyes at times, moves all extremities without purposeful movements. Nepro tube feedings infusing at 30ml/hr with no residuals aspirated and OG tube in position via air bolus. Partial linen change done secondary to patient soiled himself, ty care provided with the assistance of Khloe LEHMAN. NEW gowjose and pham applied. Will continue to monitor patient closely.
--- NOTE | 2020-01-26 08:15 | NUR ---
MD Dr. Avendaño at bedside updated on patient condition with no new orders at this time. Will continue to monitor patient closely.
--- NOTE | 2020-01-26 08:45 | NUR ---
FAMILY Received phone call from patients sister Karina , confirmed password and updated on patient condition and plan of care.
[2020-01-26] MEDS: PANTOPRAZOLE 40 MG/10 ML VIAL INJ IV SCH ×2 (10:01→22:20)
[2020-01-26] MEDS: ceFAZolin 1GM/50ML 50 ML IV SCH (10:01)
[2020-01-26] MEDS: amLODIPine BESYLATE 5 MG TAB PO SCH (10:02)
--- NOTE | 2020-01-26 11:15 | NUR ---
MD Dr. Salvador at bedside updated on patient condition with no new orders other than CT head without contrast that was put in by Dr. Avendaño. Will continue to monitor patient closely.
--- NOTE | 2020-01-26 12:05 | NUR ---
CT Patient was taken to CT scan to obtain study per . Cornelia LEHMAN, CT transport crew and RT Ghosh all accompanied patient who was connected to portable ventilator and personnel monitor.
--- NOTE | 2020-01-26 12:30 | NUR ---
CT Patient arrived back into [employer] bed 5 ICU overflow connected to bedside monitor. Patient tolerated well. Complete linen change down with the assistance of Cornelia LEHMAN secondary to patient had moderate bowel movement.
[2020-01-26] MEDS: MIDAZOLAM DRIP 50 mg/50mL 50 ML IV SCH (12:45)
[2020-01-26] MEDS: PROPOFOL 100 ML IV SCH (14:30)
--- NOTE | 2020-01-26 15:20 | NUR ---
ELIMINATION Patient had a small bowel movement, ty care provided and partial linen change done with the assistance of Tala LEHMAN. Will continue to monitor patient closely.
--- NOTE | 2020-01-26 16:25 | NUR ---
FAMILY Per tobacco warehouse agent Shanita LEHMAN sister of patient can come to visit. Sister Karina at bedside, updated on patient condition.
--- NOTE | 2020-01-26 17:45 | NUR ---
ELIMINATION Patient had a large bowel movement, ty care provided and partial linen change done with the assistance of Khloe LEHMAN. Will continue to monitor patient closely.
--- NOTE | 2020-01-26 21:30 | NUR ---
APRESOLINE 10 MG IV GIVEN FOR ELEVATED BP 170/108
--- NOTE | 2020-01-26 23:06 | NUR ---
RECIEVED PT VENTILATED, NO SEDATION, CASSIDY AND RESTLESS, GRIMACING , DOES NOT FOLLOW COMMANDS, CLEANSED OF LOOSE BROWN STOOL, PERIRECTAL AREA EXCORIATED, Z GUARD APPLIED ANFTER CLEANING, PARTIAL LINEN CHANGE, FEEDING TURNED OFF,SEE INTERVENTIONS FOR HEAD TO TOE ASSESSMENT
--- NOTE | 2020-01-26 23:12 | NUR ---
BP NOW 155/96, PT CLEANSED OF STOOL AGAIN
[2020-01-27] VITALS (29 sets, daily range): BP systolic 122–197; BP diastolic 72–119
[2020-01-27] MEDS: ACCU-CHEK COMFORT CURVE STRIP VI SCH ×6 (00:26→20:00)
[2020-01-27] MEDS: NOREPINEPHRINE 8 MG/250ML KIT 250 ML IV SCH ×2 (03:00→19:45)
--- NOTE | 2020-01-27 03:30 | NUR ---
APRESOLINE 10 MG GIVEN IV FOR BP 176/104
[2020-01-27] MEDS: hydrALAZINE HCL 20 MG/ML VL IV PRN ×2 (03:34→23:09)
[2020-01-27] MEDS: InsuLIN REG 1unit/0.01ml Soln (100units/ml) SC SCH ×6 (04:00→20:00)
--- NOTE | 2020-01-27 04:00 | NUR ---
FREQUENT LOOSE SMALL STOOLS, COMPLETE BATH GIVEN AND NAKUL CHANGE, PT VERY RESTLESS, DOES NOT FOLLOW COMMANDS
--- NOTE | 2020-01-27 05:45 | NUR ---
LABS DRAWN VIA R FEMORAL TLC, WILL CHECK BS FROM LAB DRAW
[2020-01-27 06:25] LABS: Basophils # (auto) 0.1 10 ^3/uL (0-0.2); Hemoglobin 11.4 g/dL (13.5-17.5); Lymphocytes # (auto) 1.1 10 ^3/uL (0.4-5.4); Monocytes # (auto) 0.7 10 ^3/uL (0-1.3); Red Blood Cells 3.59 10^6/uL (4.5-5.90)
[2020-01-27 06:28] LABS: Basophils % (auto) 1.2 % (0.0-2.0); Eosinophils # (auto) 0.6 10 ^3/uL (0-0.8); Eosinophils % (auto) 5.8 % (0.0-7.0); Hematocrit 34.4 % (41.0-53.0); Mean Corpuscular Hemoglobin 31.9 pg (28.0-32.0); Mean Corpuscular Hgb Conc. 33.2 g/dL (32.0-36.0); Mean Corpuscular Volume 95.9 fL (80.0-100.0); Monocytes % (auto) 7.7 % (0.0-12.0); Neutrophils # (auto) 7.2 10 ^3/uL (1.6-8.6); Neutrophils % (auto) 74.3 % (37.0-80.0); Nucleated Red Blood Cells % 0.1 %; Platelet Count (auto) 508 10^3/uL (140-450); Red Cell Distribution Width 16.7 % (11.8-14.3); White Blood Cell 9.7 10^3/uL (4.4-10.8)
[2020-01-27 06:40] LABS: Calcium 7.6 mg/dL (8.5-10.1); Potassium 3.8 mmol/L (3.5-5.1)
[2020-01-27 06:43] LABS: BUN/Creatinine Ratio 3.7
[2020-01-27] MEDS ORDERED: SODIUM CHL 0.9% 1000 ML BAG XX ONE (09:30)
[2020-01-27] MEDS: PANTOPRAZOLE 40 MG/10 ML VIAL INJ IV SCH ×2 (10:13→22:00)
[2020-01-27] MEDS: ceFAZolin 1GM/50ML 50 ML IV SCH (10:15)
[2020-01-27] MEDS: METOPROLOL TARTRATE 25 MG TAB NG SCH ×2 (10:17→21:00)
[2020-01-27] MEDS: amLODIPine BESYLATE 5 MG TAB PO SCH (10:17)
[2020-01-27] MEDS: MIDAZOLAM DRIP 50 mg/50mL 50 ML IV SCH (12:45)
--- NOTE | 2020-01-27 14:14 | NUR ---
Nutrition Followup Note Wt 97.4kg Pt is still intubated and off propofol. Pt with Nepro CS 1.8 ordered at 60 ml/hr, pt received TF on 01/25 of 500 ml per Rn nutrition note. Est energy needs ABW 91 [id number] kcal (27-30 kcal/kg ABW), Est protein needs :109-127g (1.2-1.4g/kg ABW R/T HD) Will monitor and reassess prn. LABS: Na 134L, BUN 33H, Creat 8.93H, Alb 1.6L, ca 7.6L, BM: Pt had 4 BMs on 01/26 per RN note Skin: BS 11 high risk, full details in home care associate note PES: 1) Altered nutrition related lab values r.t current chronic medical condition aeb elev RFT hypocalcemia 2) Decreased nutrient needs r/t adiposity aeb pt`s high BMI of 33.8 kgm2 3) Impaired swallowing r.t current medical condition aeb pt`s intubated NPO Comments: Will Continue to monitor NPO status, labs, skin. F/u high 2-3 days Rec: 1) Advance diet as medically feasible. 2) Consider EN support with Nephro carb steady @ 60 ml/hr per MD approval. 3) Refer to [employer] dietitian on DC. 4) Continue current plan of care
[2020-01-27] MEDS: PROPOFOL 100 ML IV SCH (14:30)
[2020-01-28] VITALS (30 sets, daily range): BP systolic 118–190; BP diastolic 72–106
--- NOTE | 2020-01-28 00:54 | NUR ---
Respiratory note: ETT CUFF PRESSURE CHECKED. UPON ARRIVAL CUFF PRESSURE 40 CMH2O. PRESSURE ADJUSTED TO 25 CMH2O AND TOLERATED WELL.
[2020-01-28] MEDS: ACCU-CHEK COMFORT CURVE STRIP VI SCH ×6 (04:00→20:00)
[2020-01-28] MEDS: InsuLIN REG 1unit/0.01ml Soln (100units/ml) SC SCH ×6 (04:00→20:00)
--- NOTE | 2020-01-28 06:51 | NUR ---
SOME IMPROVEMENT IN PT'S AGITATION TONIGHT, BP MAINTAINED WITH USE OF PRN, SATS 99-100% ON CURRENT SETTINGS, AFEBRILE.
[2020-01-28] MEDS: NOREPINEPHRINE 8 MG/250ML KIT 250 ML IV SCH (07:25)
[2020-01-28] MEDS: PROPOFOL 100 ML IV SCH (07:25)
[2020-01-28] MEDS: MIDAZOLAM DRIP 50 mg/50mL 50 ML IV SCH (07:25)
[2020-01-28] MEDS: amLODIPine BESYLATE 5 MG TAB PO SCH (10:00)
[2020-01-28] MEDS: METOPROLOL TARTRATE 25 MG TAB NG SCH ×2 (10:00→22:18)
[2020-01-28] MEDS: PANTOPRAZOLE 40 MG/10 ML VIAL INJ IV SCH ×2 (10:15→22:17)
[2020-01-28] MEDS: ceFAZolin 1GM/50ML 50 ML IV SCH (10:30)
[2020-01-28] MEDS: LABETALOL HCL 5 MG/ML 4ML SYRINGE IV PRN (23:45)
[2020-01-29] VITALS (26 sets, daily range): BP systolic 135–181; BP diastolic 79–114
[2020-01-29] MEDS: hydrALAZINE HCL 20 MG/ML VL IV PRN ×3 (00:21→23:47)
[2020-01-29] MEDS: LABETALOL HCL 5 MG/ML 4ML SYRINGE IV PRN (00:39)
[2020-01-29] MEDS: InsuLIN REG 1unit/0.01ml Soln (100units/ml) SC SCH ×7 (04:00→23:46)
[2020-01-29] MEDS: ACCU-CHEK COMFORT CURVE STRIP VI SCH ×7 (04:00→23:46)
--- NOTE | 2020-01-29 07:35 | NUR ---
OPENING SHIFT NOTE REPORT RECEIVED FROM FOOD BEVERAGE SUPERVISOR RN, MORNING ASSESSMENT PERFORMED AND DOCUMENTED. 39 YEAR OLD MALE, LYING IN SUPINE POSITION, DOES NOT OPEN EYES SPONTANEOUSLY, DOES NOT FOLLOW COMMANDS, KICKING AND FLAILING BILATERAL LEGS AND ARMS WITH NO PURPOSE. VITAL SIGNS STABLE WITH THE EXCEPTION OF SBP IN THE 180's. PATIENT REPOSITIONED FOR COMFORT AND CLEANSED OF MODERATE SIZE LIQUID/LOOSE BROWN STOOL. EFFORTS TO MAINTAIN SKIN INTEGRITY WILL CONTINUE THROUGHOUT SHIFT. ENTERAL FEEDING WILL BE DISCONTINUED DUE TO HIGH ASPIRATION PRECAUTIONS, MD WILL BE NOTIFIED. FALL AND SAFETY PRECAUTIONS IN PLACE.
[2020-01-29] MEDS: ceFAZolin 1GM/50ML 50 ML IV SCH (09:44)
[2020-01-29] MEDS: PANTOPRAZOLE 40 MG/10 ML VIAL INJ IV SCH ×2 (09:45→22:12)
[2020-01-29] MEDS: METOPROLOL TARTRATE 25 MG TAB NG SCH ×2 (09:45→22:12)
[2020-01-29] MEDS: amLODIPine BESYLATE 5 MG TAB PO SCH (09:46)
--- NOTE | 2020-01-29 10:45 | NUR ---
PULMONOLOGY AT BEDSIDE DR DEWITT UPDATED ON PATIENT'S STATUS, FAMILY REQUESTING TO SPEAK WITH NEUROLOGIST OR HERSELF AND ENTERAL FEEDING BEING HELD SECONDARY TO INCREASED RISK OF ASPIRATION PRECAUTIONS DUE TO NEED TO REST IN SUPINE POSITION FOR RISK OF FALL. VERBALIZED UNDERSTANDING AND REPORTED SHE WOULD BE CALLING FAMILY.
--- NOTE | 2020-01-29 10:50 | NUR ---
WOUND CARE NOTE: WOUND CARE IN TO SEE PATIENT FOR REEVALUATION. PATIENT REMAINS ON ICU LOW AIR-LOSS BED. PATIENT'S LEFT FOOT DFU REMAINS INTACT/DRY/HYPERKERATOTIC. LEFT OPEN TO AIR. PATIENT'S SACRAL DTI REMAINS. PATIENT HAS DEVELOPED MASD WITH SKIN EROSION DUE TO FREQUENT LOOSE STOOLS. PHOTOGRAPHS TAKEN AT THIS TIME FOR REFERENCE. ZGUARD AND OPTIFOAM GENTLE SACRAL DRESSING APPLIED. RECOMMENDATION: FREQUENT Q2HOUR REPOSITIONING CONDITION PERMITS. REDISTRIBUTE PRESSURE UTILIZING PILLOWS AND WEDGES. BID/PRN DRESSING CHANGE TO SACRUM. CONTINUE SKIN/WOUND CARE PLAN. CONTINUED MONITORING BY WOUND CARE TEAM. Addendum: 01/29/20 at 1533 by MARIANNE CHESTER RN RN Amended: Links added.
--- NOTE | 2020-01-29 12:04 | NUR ---
Nutrition Followup Note Wt 97.8kg Pt is still intubated and off propofol. Pt with Nepro CS 1.8 ordered at 60 ml/hr, pt received TF on 01/27 of 876 ml per Rn nutrition note. Continue with TF as tolerated Est energy needs ABW 91 [id number] kcal (27-30 kcal/kg ABW), Est protein needs :109-127g (1.2-1.4g/kg ABW R/T HD) Will monitor and reassess prn. LABS: GLUC 113H, Na 134L, BUn 33H, Creat 8.97H, Alb 1.6L, Ca 7.6L BM: Pt had 2 BMs on 01/28 per RN note Skin: BS 11 high risk, full details in dog day care attendant note PES: 1) Altered nutrition related lab values r.t current chronic medical condition aeb elev RFT hypocalcemia 2) Decreased nutrient needs r/t adiposity aeb pt`s high BMI of 33.8 kgm2 3) Impaired swallowing r.t current medical condition aeb pt`s intubated NPO Comments: Will Continue to monitor NPO status, labs, skin. F/u high 2-3 days Rec: 1) Advance diet as medically feasible. 2) Consider EN support with Nephro carb steady @ 60 ml/hr per MD approval. 3) Refer to [employer] dietitian on DC. 4) Continue current plan of care
--- NOTE | 2020-01-29 12:17 | NUR ---
CALL RECEIVED FROM FAMILY/PAGED DR DEWITT PHONE CALL RECEIVED FROM PATIENT'S SISTER MEHRDAD. AFTER PASSWORD VERIFICATION, MEHRDAD NOTIFIED THIS NURSE THAT "I HAVE DISCUSSED MY BROTHER'S CONDITION WITH MY FAMILY AND WE ALL HAVE DECIDED TO TERMINAL WEAN". MEHRDAD REPORTED THAT SHE SPOKE WITH DR DEWITT EARLIER THIS MORNING AND MD PROVIDED PROGNOSIS AND PLAN OF CARE. MEHRDAD REQUESTING TERMINAL WEAN TO BE PERFORMED TOMORROW. CHARGE NURSE DEVYN MANE. PAGED DR DEWITT TO NOTIFY, AWAITING RESPONSE.
[2020-01-29] MEDS: MIDAZOLAM DRIP 50 mg/50mL 50 ML IV SCH (12:45)
--- NOTE | 2020-01-29 12:50 | NUR ---
RETURN CALL FROM HOSPITALIST DR DEWITT NOTIFIED OF FAMILY REQUEST FOR TERMINAL WEAN TOMORROW AND THAT PATIENT'S SISTER MEHRDAD WOULD LIKE TO SPEAK WITH HER. VERBALIZED UNDERSTANDING. NO FURTHER ORDERS GIVEN AT THIS TIME.
[2020-01-29] MEDS: PROPOFOL 100 ML IV SCH (14:30)
[2020-01-29] MEDS: NOREPINEPHRINE 8 MG/250ML KIT 250 ML IV SCH (19:45)
--- NOTE | 2020-01-29 20:57 | NUR ---
HERMESLeonora ANTOINEO (SISTER) REQUESTING STATUS CODE CHANGE VERIFIED PASSWORD. HERMES STATED THAT SHE SPOKE WITH DR DEWITT AND THAT SHE AND HER FAMILY DECIDED TO TERMINAL WEAN ERNESTINA MOSS. HERMES REQUESTING COMFORT MEASURES ONLY STATUS. STATUS REQUEST WAS WITNESSED BY ME (DAPHNE HARRIS) AND ALEXANDRO NICOLE OVER THE PHONE.
--- NOTE | 2020-01-29 21:11 | NUR ---
PT PLACED ON V60 NUMBER B10, PT ON SETTINGS IPAP 19 EPAP5, RR14,I TIME 1.5 30% FIO2, V60 PLUGGED INTO RED OUTLET, O2 CONNECTIONS SECURE. PT ETT PATENT AND VERIFIED AT 21 AT THE LIP. ALARM SETTINGS ARE ON,FUNCTIONAL AND AUDIBLE. PT SKIN INTEGRITY INTACT, PT SKIN WARM AND DRY TO TOUCH. PT BBS CLEAR T/O.
[2020-01-30] VITALS (20 sets, daily range): BP systolic 110–181; BP diastolic 67–105
[2020-01-30] MEDS: LABETALOL HCL 5 MG/ML 4ML SYRINGE IV PRN (01:49)
[2020-01-30] MEDS: InsuLIN REG 1unit/0.01ml Soln (100units/ml) SC SCH ×4 (04:00→16:00)
--- NOTE | 2020-01-30 04:22 | NUR ---
CARES PATIENT HAD SOFT BROWN BOWEL MOVEMENT. FULL BED LINEN CHANGE, PARTIAL BED BATH, APPLIED Z-GUARD TO BOTTOM. PATIENT TOLERATED TURNING AND CARES WELL.
[2020-01-30 04:56] LABS: Hemoglobin 11.7 g/dL (13.5-17.5); Lymphocytes % (auto) 12.1 % (10.0-50.0)
[2020-01-30 04:58] LABS: Basophils # (auto) 0.2 10 ^3/uL (0-0.2); Eosinophils # (auto) 0.6 10 ^3/uL (0-0.8); Eosinophils % (auto) 7.4 % (0.0-7.0); Hematocrit 35.5 % (41.0-53.0); Mean Corpuscular Hemoglobin 31.7 pg (28.0-32.0); Mean Corpuscular Hgb Conc. 32.9 g/dL (32.0-36.0); Mean Corpuscular Volume 96.4 fL (80.0-100.0); Monocytes # (auto) 0.9 10 ^3/uL (0-1.3); Monocytes % (auto) 11.5 % (0.0-12.0); Neutrophils # (auto) 5.3 10 ^3/uL (1.6-8.6); Platelet Count (auto) 479 10^3/uL (140-450); Red Blood Cells 3.69 10^6/uL (4.5-5.90); Red Cell Distribution Width 16.6 % (11.8-14.3); White Blood Cell 7.9 10^3/uL (4.4-10.8)
[2020-01-30] MEDS: ACCU-CHEK COMFORT CURVE STRIP VI SCH ×4 (05:18→16:00)
[2020-01-30 05:56] LABS: BUN/Creatinine Ratio 3.5; Calcium 7.6 mg/dL (8.5-10.1); Potassium 3.8 mmol/L (3.5-5.1)
[2020-01-30] MEDS ORDERED: SODIUM CHL 0.9% 1000 ML BAG XX ONE (07:00)
--- NOTE | 2020-01-30 08:00 | NUR ---
Opening Shift Note Assumed care of patient, ET to [facility] vent, confused and restless. No S/S of distress/SOB or pain. OGT clamped. See interventions for complete assessment. Bed locked on low position, side rails up x2, bed alarms on at all times, will continue to monitor for changes Q1hr and PRN.
--- NOTE | 2020-01-30 08:10 | NUR ---
Spoke to patient's sister Celine Flores who's over the phone with Michael LEHMAN regarding patient's code status stating "Yes, we wanted comfort measures, no CPR, let him go peacefully, please give him something to make him comfortable". Read back and verified. Dr Salvador informed.
[2020-01-30] MEDS: LORazepam 2MG/ML-1ML VIAL IV PRN ×3 (08:34→15:09)
[2020-01-30] MEDS: MORPHINE SULF INJ 2 MG/ML SYRINGE 1ML IV PRN ×3 (08:34→15:09)
--- NOTE | 2020-01-30 08:56 | NUR ---
Reported planned terminal wean to [facility], spoke to Kehinde, [id number].
[2020-01-30] MEDS: METOPROLOL TARTRATE 25 MG TAB NG SCH ×2 (10:00→22:00)
[2020-01-30] MEDS: amLODIPine BESYLATE 5 MG TAB PO SCH (10:00)
[2020-01-30] MEDS: PANTOPRAZOLE 40 MG/10 ML VIAL INJ IV SCH ×2 (10:00→23:25)
[2020-01-30] MEDS: ceFAZolin 1GM/50ML 50 ML IV SCH (10:00)
--- NOTE | 2020-01-30 10:05 | NUR ---
Dr Salvador at bedside, updated on patient's status. Patient seen and examined. Orders for terminal wean received.
--- NOTE | 2020-01-30 10:40 | NUR ---
Terminal wean by RT, sister Celine notified.
--- NOTE | 2020-01-30 10:40 | NUR ---
PT TERMINALLY EXTUBATED AT THIS TIME AND PLACED ON 1LNC. DOMINIK NAVARRO AT BEDSIDE.
--- NOTE | 2020-01-30 13:55 | NUR ---
Assumed care for lunch coverage. pt in bed 5 in grass farm laborer. VSS. NAD noted
--- NOTE | 2020-01-30 13:59 | NUR ---
HD RN at bedside. Verified with PCN DOMINIK Pandey that pt is terminal and no HD at this time.
--- NOTE | 2020-01-30 13:59 | NUR ---
Spoke to Dr Salvador over the phone regarding patient's dialysis and MD stated to cancel HD.
--- NOTE | 2020-01-30 14:37 | NUR ---
no changes. report to N.
--- NOTE | 2020-01-30 17:39 | NUR ---
Received call from patient's sister Celine who's able to provide password, updated on patient's status and POC, verbalized understanding. All questions and concerns addressed.
--- NOTE | 2020-01-30 22:00 | NUR ---
Assumed care from ICU report recieved from FLOW MATCH SOFA CUTTER. patient nonverbal, does not follow direction. on oxygen at 1L via NC with even and unlabored respirations. right arm AVf with present bruit and thrill. no s/s of distress. bed low locked position with side rails up x 2 and call light within reach.
[2020-01-31] MEDS: ACCU-CHEK COMFORT CURVE STRIP VI SCH ×6 (00:12→20:00)
[2020-01-31] MEDS: InsuLIN REG 1unit/0.01ml Soln (100units/ml) SC SCH ×6 (04:00→20:00)
[2020-01-31 05:00] VITALS: BP 130/71
--- NOTE | 2020-01-31 07:00 | NUR ---
Closing Note patient sleeping, even and unlabored respirations, no s/s of distress. oxygen on 1L via NC. bed low locked position with side rails up x 2 and call light within reach.
--- NOTE | 2020-01-31 07:30 | NUR ---
Endorsed care to day shift RN.
[2020-01-31 09:00] VITALS: BP 143/83
[2020-01-31] MEDS: amLODIPine BESYLATE 5 MG TAB PO SCH (10:00)
[2020-01-31] MEDS: PANTOPRAZOLE 40 MG/10 ML VIAL INJ IV SCH ×2 (10:00→22:00)
[2020-01-31] MEDS: ceFAZolin 1GM/50ML 50 ML IV SCH (10:00)
[2020-01-31] MEDS: METOPROLOL TARTRATE 25 MG TAB NG SCH ×2 (10:00→22:00)
--- NOTE | 2020-01-31 10:00 | NUR ---
Family refused all meds except for comfort measures.
--- NOTE | 2020-01-31 12:16 | NUR ---
Assessment Patient is a 39-year-old male who is nonverbal. Assessment was completed with patient sister Karina . Prior to admission patient reside with their Father Gordon and functioned independently. Prior to admission patient could care for his own ADL's. Advised Karina there is a social service consult for hospice evaluation. Per MD Ericka, Dr. Box spoke to her about hospice and she will have to speak to their father Gordon before making a decision. Karina informed me she will be able to give me an answer by tomorrow after 12 noon. Will follow up with Karina on 02/01/20.
[2020-01-31 13:00] VITALS: BP 190/99
[2020-01-31] MEDS: LORazepam 2MG/ML-1ML VIAL IV PRN ×3 (14:39→23:56)
[2020-01-31] MEDS: MORPHINE SULF INJ 2 MG/ML SYRINGE 1ML IV PRN ×3 (14:39→23:56)
--- NOTE | 2020-01-31 16:33 | NUR ---
Nutrition Followup Note Wt 97.8 kg Pt is off sedation, terminally extubated on 01/29 per family wishes. Per today's notes, pt is awake but agitated. Pt with Nepro CS 1.8 tube feeding suspended, family declined HD, per family pt to receive comfort care only. Pt is DNR. Est energy needs ABW 91 [id number] kcal (27-30 kcal/kg ABW), Est protein needs :109-127g (1.2-1.4g/kg ABW R/T HD) Will monitor and reassess prn. LABS: GLUC 121H, Na 134L, BUN 36H, Creat 10.4H, Alb 1.6L, Ca 7.6L BM: Pt had 1 BM on 01/29 per RN note Skin: BS 12 high risk, full details in personal care home administrator note PES: 1) Altered nutrition related lab values r.t current chronic medical condition aeb elev RFT hypocalcemia 2) Decreased nutrient needs r/t adiposity aeb pt`s high BMI of 33.8 kgm2 3) Impaired swallowing r.t current medical condition aeb pt`s intubated NPO Comments: Will Continue to monitor NPO status, labs, skin. F/u high 2-3 days Rec: 1) Advance diet as medically feasible. 2) Consider EN support with Nephro carb steady @ 60 ml/hr per MD approval. 3) Refer to [employer] dietitian on DC. 4) Continue current plan of care
[2020-01-31 17:00] VITALS: BP 171/94
--- NOTE | 2020-01-31 19:32 | NUR ---
Opening Shift Note Assumed care of patient after receiving report from DOMINIK Wilkerson. Patient is unresponsive to name, spontaneous eye opening, no S/S of distress/SOB or pain. Gael in lowest locked position x2 side rails up and bed alarm for safety, HOB semi fowlers. Instructed family on POC, will continue to monitor for changes Q1hr and PRN.
[2020-01-31 21:00] VITALS: BP 190/93
--- NOTE | 2020-01-31 22:40 | NUR ---
Medications refused Medications refused by family. Family refusing PRN medication for elevated BP and all scheduled medications. All medications being refused except for ativan and morphine per comfort measures. Will continue to monitor.
--- NOTE | 2020-01-31 22:49 | NUR ---
Family updated Spoke with sister Karina, verified password. Updated family on POC and patient status. All questions answered at this time.
--- NOTE | 2020-02-01 03:32 | NUR ---
Dressing change/BM Dressing change performed to sacral area after noted that patient had small BM. Complete linen change performed and patient repositioned for comfort.
[2020-02-01] MEDS: LORazepam 2MG/ML-1ML VIAL IV PRN ×4 (03:40→20:54)
[2020-02-01] MEDS: MORPHINE SULF INJ 2 MG/ML SYRINGE 1ML IV PRN ×4 (03:40→20:54)
[2020-02-01] MEDS: InsuLIN REG 1unit/0.01ml Soln (100units/ml) SC SCH ×2 (03:47)
[2020-02-01] MEDS: ACCU-CHEK COMFORT CURVE STRIP VI SCH ×2 (03:48)
[2020-02-01 05:44] VITALS: BP 151/98
--- NOTE | 2020-02-01 07:50 | NUR ---
Opening Shift Note\ Assumed care of patient. Patient is unresponsive to name, spontaneous eye opening, no S/S of distress/SOB or pain. Bed in lowest locked position x2 side rails up and bed alarm for safety, HOB semi fowlers. Instructed family on POC, will continue to monitor for changes Q1hr and PRN.
[2020-02-01 09:38] VITALS: BP 153/84
--- NOTE | 2020-02-01 13:53 | NUR ---
D/C Planning Placed follow up called to patient sister Karina in regards of MD order. Karina informed me she has not talk to her father about patient going home on hospice. Informed Karina DUNCAN will be informed. Informed Dr. Castañeda who contact family and Karina will make a decision tomorrow Wednesday. Will follow up in the am.
[2020-02-01 17:00] VITALS: BP 107/53
--- NOTE | 2020-02-01 20:33 | NUR ---
Family updated Call received from patients sister, password verified. Updated sister on POC and answered all questions at this time. Will continue to monitor.
[2020-02-01 22:00] VITALS: BP 160/99
[2020-02-02] MEDS: MORPHINE SULF INJ 2 MG/ML SYRINGE 1ML IV PRN ×5 (00:25→14:59)
[2020-02-02] MEDS: LORazepam 2MG/ML-1ML VIAL IV PRN ×4 (00:25→11:08)
--- NOTE | 2020-02-02 04:53 | NUR ---
BM / Linen change Patient had moderate amount of BM, patient was cleaned with complete linen change and repositioned for comfort. Will continue to monitor.
[2020-02-02 05:20] VITALS: BP 160/82
[2020-02-02 08:20] VITALS: BP 141/82
[2020-02-02 09:15] VITALS: BP 136/83
--- NOTE | 2020-02-02 09:28 | NUR ---
After receiving patient from the shrink pit operator RN, I went to the room to check patient. patient AOx1, nonverbal, no s/s of distress, patient is on 1L NC sat. 98%, had s/s of facial grimace and occasinal moaning, morphine 1mg IV given. patient's vital signs are within the normal range except HR 104,. Bed in low position, call light within reach, bed alarm on. will continue to monitor patient and provide comfort measure.
[2020-02-02 13:00] VITALS: BP 171/91
--- NOTE | 2020-02-02 15:08 | NUR ---
Nutrition Followup Notes Pt wt is 85.1 kg Pt is off sedation, terminally extubated on 01/29 per family wishes. Per today's notes, pt is nonverbal, no s/s of distress. Pt with tube feeding suspended, per family pt to receive comfort care only. Pt is DNR D/C to hospice planning. Est energy needs ABW 91 [id number] kcal (27-30 kcal/kg ABW), Est protein needs :109-127g (1.2-1.4g/kg ABW R/T HD) Will monitor and reassess prn. LABS: GLUC 121H, Na 134L, BUN 36H, Creat 10.4H, Alb 1.6L, Ca 7.6L BM: Pt had no BM today per RN note Skin: BS 12 high risk, full details in care clinician note PES: 1) Altered nutrition related lab values r.t current chronic medical condition aeb elev RFT hypocalcemia 2) Decreased nutrient needs r/t adiposity aeb pt`s high BMI of 33.8 kgm2 3) Impaired swallowing r.t current medical condition aeb pt`s intubated NPO Comments: Will Continue to monitor NPO status, labs, skin. F/u high 2-3 days Rec: 1) Advance diet as medically feasible. 2) Consider EN support with Nephro carb steady @ 60 ml/hr per MD approval. 3) Refer to [facility] dietitian on DC. 4) Continue current plan of care
--- NOTE | 2020-02-02 16:20 | NUR ---
Placed several call to patient sister Karina regarding hospice evaluation, left message no call back.
[2020-02-02 17:28] VITALS: BP 136/94
--- NOTE | 2020-02-02 18:00 | NUR ---
Patient has been very lethargic, showing facial grimace and restlessness at times. ativan and morphine IV administered with good results. patient's family wanted patient on comfort care. Patient had several incontinent loose stools. Patient has scattered scabs and skin redness on sacrum. turned patient Q2 hour, applied barrier cream, placed new optiform, kept patient dry and clean. Patient's sister Celine called at 1000, confirmed password and updated her on patient's plan of care.
[2020-02-02 22:00] VITALS: BP 152/89
[2020-02-03] MEDS: LORazepam 2MG/ML-1ML VIAL IV PRN ×2 (05:05→10:49)
--- NOTE | 2020-02-03 07:45 | NUR ---
Opening Shift Note Assumed care of patient after receiving report. Patient is unresponsive to name, spontaneous eye opening, no S/S of distress/SOB or pain. Bedd in lowest locked position x2 side rails up and bed alarm for safety, HOB semi fowlers. Instructed family on POC, will continue to monitor for changes Q1hr and PRN.
[2020-02-03 08:00] VITALS: BP 166/95
[2020-02-03 09:00] VITALS: BP 166/95
[2020-02-03] MEDS: MORPHINE SULF INJ 2 MG/ML SYRINGE 1ML IV PRN (10:49)
--- NOTE | 2020-02-03 12:06 | NUR ---
Tower Foreman Placed call to patient sister Celine at 11:50am advising her doctor has placed another hospice evaluation to contact hospice in regards of options for patients. Celine informed me to contact the hospice that Gopi DUNCAN had previously recommended. Faxed clinical information to [facility]. Placed call to Olga with [facility] hospice advising her to contact patient sister Celine to discuss options for patient. Celine verbalize understanding.
--- NOTE | 2020-02-03 12:31 | NUR ---
Hosiery Looper Received a follow up called from Olga with [facility] advising me patient sister Celine is in agreement for patient to be discharge on hospice but would like to arranged patient room before the medical equipment arrives home. Per Olga with [facility] she will arranged DME tomorrow. Transportation will be arranged once medical equipment is deliver to patient home. [facility] [place] or .
[2020-02-03 13:00] VITALS: BP_SYST 141; BP_SYST 158; BP_DIAS 63; BP_DIAS 95
--- NOTE | 2020-02-03 16:00 | NUR ---
PAGED DOCTOR MITCHEL FOR ORDER FOR ANTI-NAUSEA. AWAITING FOR RESPONSE.
[2020-02-03 17:00] VITALS: BP 182/98
--- NOTE | 2020-02-03 19:50 | NUR ---
Opening Shift Note Assumed care of patient. Patient is unresponsive and on comfort measures only. HOB is 30 degrees. Patient is on 1L NC. Bed locked and in lowest position. Will continue to monitor for changes Q1hr and PRN.
[2020-02-03 22:00] VITALS: BP 149/82
--- NOTE | 2020-02-04 02:07 | NUR ---
Noticed patient's heart rate was dropping slowly on the tele monitor. Assessed patient and could not find a pulse nor could I hear any heart sounds. Patient wasn't visibly breathing either.
--- NOTE | 2020-02-04 02:10 | NUR ---
Notified by Tele that patient passed
--- NOTE | 2020-02-04 02:13 | NUR ---
Paged Hospitalist notifying him that the patient passed and that he needs to come up and call it. Awaiting his call back
--- NOTE | 2020-02-04 02:20 | NUR ---
Hospitalist called back explaining he'll be up in a little bit to call time of .
--- NOTE | 2020-02-04 02:45 | NUR ---
Paged Hospitalist again in regards to calling time of
--- NOTE | 2020-02-04 02:55 | NUR ---
Hospitalist, Jd Murdock NP, is on the unit and calls time of at 0210.
--- NOTE | 2020-02-04 02:57 | NUR ---
Notified family Karina Flores (sister) of patient's
--- NOTE | 2020-02-04 03:04 | NUR ---
Called [facility] and notified them of the patient's . Patient is not eligible for donation
--- NOTE | 2020-02-04 03:08 | NUR ---
Spoke to Vita from the [facility] Coroner's office in regard's to the patient's . Awaiting call from street supervisor.
== END 2020-02-04 02:10 | DRG 207 ==
LOC: ER 11:52 → EDBD 11:52 → TELE 14:10 → ICU WEST 18:29 → CATH ICU 01-22 15:05 → WEST WING 01-30 21:53
PROVIDERS: ADMIT Hospitalist; ATTEND Internal Medicine Pulmonary Disease
PROC: 5A1955Z Respiratory Ventilation, Greater than 96 Consecutive Hours (ICD-10-PCS; principal; 2020-01-14)
PROC: 0BH17EZ Insertion of Endotracheal Airway into Trachea, Via Natural or Artificial Opening (ICD-10-PCS; 2020-01-14)
PROC: 5A1D70Z Performance of Urinary Filtration, Intermittent, Less than 6 Hours Per Day (ICD-10-PCS; 2020-01-14)
PROC: 06HY33Z Insertion of Infusion Device into Lower Vein, Percutaneous Approach (ICD-10-PCS; 2020-01-14)
PROC: 5A1D70Z Performance of Urinary Filtration, Intermittent, Less than 6 Hours Per Day (ICD-10-PCS; 2020-01-15)
PROC: 0DJ08ZZ Inspection of Upper Intestinal Tract, Via Natural or Artificial Opening Endoscopic (ICD-10-PCS; 2020-01-16)
PROC: 5A1D70Z Performance of Urinary Filtration, Intermittent, Less than 6 Hours Per Day (ICD-10-PCS; 2020-01-16)
PROC: 5A1D70Z Performance of Urinary Filtration, Intermittent, Less than 6 Hours Per Day (ICD-10-PCS; 2020-01-18)
PROC: 5A1D70Z Performance of Urinary Filtration, Intermittent, Less than 6 Hours Per Day (ICD-10-PCS; 2020-01-20)
PROC: 5A1D70Z Performance of Urinary Filtration, Intermittent, Less than 6 Hours Per Day (ICD-10-PCS; 2020-01-23)
PROC: 5A1D70Z Performance of Urinary Filtration, Intermittent, Less than 6 Hours Per Day (ICD-10-PCS; 2020-01-25)
PROC: 5A1D70Z Performance of Urinary Filtration, Intermittent, Less than 6 Hours Per Day (ICD-10-PCS; 2020-01-27)
DX: J15.211 Pneumonia due to Methicillin susceptible Staphylococcus aureus (principal); J96.01 Acute respiratory failure with hypoxia; G93.41 Metabolic encephalopathy; N18.6 End stage renal disease; G93.1 Anoxic brain damage, not elsewhere classified; N25.81 Secondary hyperparathyroidism of renal origin; E87.1 Hypo-osmolality and hyponatremia; N17.9 Acute kidney failure, unspecified; I13.2 Hypertensive heart and chronic kidney disease with heart failure and with stage 5 chronic kidney disease, or end stage renal disease; Z51.5 Encounter for palliative care; Z20.828 Contact with and (suspected) exposure to other viral communicable diseases; I16.0 Hypertensive urgency; E87.5 Hyperkalemia; E83.39 Other disorders of phosphorus metabolism; D64.9 Anemia, unspecified; K20.90 Esophagitis, unspecified without bleeding; I50.9 Heart failure, unspecified; I25.10 Atherosclerotic heart disease of native coronary artery without angina pectoris; E11.22 Type 2 diabetes mellitus with diabetic chronic kidney disease; E11.649 Type 2 diabetes mellitus with hypoglycemia without coma; E78.5 Hyperlipidemia, unspecified; Z99.2 Dependence on renal dialysis; Z82.49 Family history of ischemic heart disease and other diseases of the circulatory system; Z82.3 Family history of stroke; Z83.3 Family history of diabetes mellitus; Z80.1 Family history of malignant neoplasm of trachea, bronchus and lung; Z79.899 Other long term (current) drug therapy
CPT/HCPCS: 31500; 36415; 36556; 36600; 43235; 70450; 71045; 80048; 80053; 80061; 80320; 82728; 82805; 82962; 83036; 83605; 83615; 84132; 84484; 85014; 85018; 85025; 85610; 86141; 86850; 86900; 86901; 87040; 87070; 87077; 87081; 87186; 87205; 87426; 90935; 93005; 94002; 94003; 94640; 95819; 96365; 96375; 99291; C9113; G0378; J0330; J0610; J0690; J0696; J0885; J1642; J1815; J2250; J2543; J2704; J3490; J7042; J7060